=== PATIENT | male | born 1960 | race Caucasian/White ===

== ENCOUNTER → 2019-08-17 | Outpatient (CLI) | payer OTHER ==
[2019-06-20 10:10] VITALS: BP 127/81
[~2019-08-17] MED LIST: BUDE10.2 IH; GUAI600T47 PO; IBUP-1027 PO; OMEP20CA10 PO
== END | disposition home or self-care (01) ==
LOC: LAB 12:36
PROVIDERS: ATTEND Internal Medicine Critical Care Medicine
DX: I48.91 Unspecified atrial fibrillation (principal); G96.9 Disorder of central nervous system, unspecified; R05 Cough; B35.9 Dermatophytosis, unspecified
CPT/HCPCS: 87070; 87102; 87116; 87205

== ENCOUNTER → 2019-09-05 | Day surgery (SDC) | payer OTHER ==
[~2019-09-05] MED LIST changes: +ALBUTEROL SULFATE 2.5 MG/3 ML NEBU. NEB PRN; +CETI10TA16 PO; +EPINEPHrine 1 MG/ML VIAL INJ PRN; +IV RINGERS,LACTATED 1000ML 1,000 ML IV SCH; +LIDOCAINE 1% Multi-Dose 20 ML VIAL. INJ PRN; +LIDOCAINE 2% PF 5 ML VIAL. ONE; +LIDOCAINE 2% VISCOUS 100 ML BOTTLE. MM PRN; +LIDOCAINE 4% TOPICAL 50 ML SOLUTION. MM PRN; +PROPOFOL 40 ML IV ONE; +PSEU120T58 PO
[2019-09-05 12:55] LABS: BASO # 0.1 x10^3/uL (0.0-0.2); BASO % 1 % (0-3); EOS # 0.1 x10^3/uL (0.0-0.7); EOS % 1 % (0-3); HEMATOCRIT 43.1 % (39.0-53.0); LYMPH # 1.8 x10^3/uL (1.0-4.8); LYMPH % 25 % (24-48); MEAN CORPUSCULAR HEMOGLOBIN 34 pg (25-35); MEAN CORPUSCULAR HGB CONC 35 g/dL (31-37); MEAN CORPUSCULAR VOLUME 98 fL (79-100); MONO # 0.9 x10^3/uL (0.0-1.1); MONO % 13 % (0-9); NEUT # 4.2 x10^3/uL (1.8-7.7); NEUT % 60 % (31-73); PLATELET COUNT 352 x10^3/uL (140-400); RED BLOOD COUNT 4.39 x10^6/uL (4.30-5.70); RED CELL DISTRIBUTION WIDTH 13.3 % (11.5-14.5)
[2019-09-05 13:06] LABS: PROTHROMBIN TIME PATIENT 12.7 SEC (11.7-14.0)
--- NOTE | 2019-09-05 14:13 | OP ---
DATE OF SURGERY: 09/05/2019 PROCEDURE: Bronchoscopy, bronchoalveolar lavage of the right and left lower segments. INDICATION: The patient presented with persistent abnormal CT chest and some hemoptysis in the past, undergoing a diagnostic bronchoscopy. He has had a previously new left upper lobe thick wall cavitary mass and some pulmonary nodules. Risks, benefits, and alternatives reviewed with the patient and he consented. SEDATION: Please see anesthesia notes. PROCEDURE IN DETAIL: A timeout was performed prior to sedation. Vital signs and O2 saturations were maintained within normal limits throughout the procedure. The bronchoscope was passed through the right naris. The vocal cords were identified moving bilaterally without any dysfunction. The vocal cords were then anesthetized with a total of 5 mL of 4% lidocaine. The bronchoscope was passed through the vocal cords into the proximal trachea which was normal. The distal trachea was likewise normal. The right and left segments and subsegments were all visualized. There were no endobronchial lesions. The scope was wedged into the left lower lobe segment and a bronchoalveolar lavage was performed, and the return was slightly cloudy. The scope was then wedged into the right lower lobe segment and a bronchoalveolar lavage was performed, and the return was once again cloudy. There was no evidence of blood in the airway. IMPRESSION: 1. Normal vocal cords. 2. No endobronchial lesions. 3. No evidence of active bleeding. PLAN: We will await the BAL results. The patient is to follow up in the office as instructed to do so. HAILEE SANTANA MD DR: WHITLEY/nas JOB#: [id number] / [id number]
[2019-09-05 14:21] VITALS: BP 120/65
--- NOTE | 2019-09-07 18:06 | PATHOLOGY ---
Note [facility] Accession Number: [id number] TESTS RESULT FLAG UNITS REF RANGE LAB Clinician Provided Cytology Information No. of containers..01 Other (Miscellaneous) Source: LT LUNG BAL DIAGNOSIS: LT LUNG BAL NEGATIVE FOR MALIGNANT CELLS. BRONCHIAL EPITHELIAL CELLS, FEW PULMONARY MACROPHAGES, AND FEW INFLAMMATORY CELLS PRESENT. Signed out by: 02 José Wilde MD, Pathologist NPI- [id number] Performed by: Ceci Gan, Sand Drier ([facility]) Gross description: 01 5 ML, COLORLESS, CLOUDY /LCS 11/27/1840 0000 Local FLAG LEGEND: L-Low Normal,H-High Normal,LL-Alert Low,HH-Alert High <-Panic Low,>-Panic High,A-Abnormal,AA-Critical Abnormal Performed at: [address] [place] [address] Ozzy Mims MD, 02 [facility] [address] [place] [address] José Wilde MD, Specimen Comment: A courtesy copy of this report has been sent to Specimen Comment: [phone]. Specimen Comment: Report sent to Performed at: [address], [place], [place] [id number] MD Ozzy Mims MD Phone: [phone]
--- NOTE | 2019-09-07 18:06 | PATHOLOGY ---
Note [facility] Accession Number: [id number] TESTS RESULT FLAG UNITS REF RANGE LAB Clinician Provided Cytology Information No. of containers..01 Other (Miscellaneous) Source: RT LUNG BAL DIAGNOSIS: 02 RT LUNG BAL NEGATIVE FOR MALIGNANT CELLS. BRONCHIAL EPITHELIAL CELLS, FEW PULMONARY MACROPHAGES, AND FEW INFLAMMATORY CELLS PRESENT. Signed out by: 02 José Wilde MD, Pathologist NPI- [id number] Performed by: Ceci Gan Music Composition Teacher ([facility]) Gross description: 01 5 ML, COLORLESS, CLOUDY /LCS 11/27/1840 0000 Local FLAG LEGEND: L-Low Normal,H-High Normal,LL-Alert Low,HH-Alert High <-Panic Low,>-Panic High,A-Abnormal,AA-Critical Abnormal Performed at: [address] [address] Ozzy Mims MD, 02 [facility] [address] [place] [address] José Wilde MD, Specimen Comment: A courtesy copy of this report has been sent to Specimen Comment: [phone]. Specimen Comment: Report sent to Specimen Comment: A duplicate report has been generated due to demographic updates. Performed at: [address] [place] [address] [address], [place], [place] [id number] MD Ozzy Mims MD Phone: [phone]
== END ==
LOC: SURG 12:07
PROVIDERS: ATTEND Internal Medicine Pulmonary Disease
DX: R91.8 Other nonspecific abnormal finding of lung field (principal); J40 Bronchitis, not specified as acute or chronic; J43.9 Emphysema, unspecified; Z87.891 Personal history of nicotine dependence; Z87.01 Personal history of pneumonia (recurrent); Z79.01 Long term (current) use of anticoagulants
CPT/HCPCS: 31624; 36415; 85025; 85610; 87070; 87102; 87116; 87205; 94640; J0171; J2001; J2704; 31622; 88112

== ENCOUNTER → 2019-10-23 | Outpatient (CLI) | payer OTHER ==
[2019-09-05 14:21] VITALS: BP 120/65
[~2019-10-23] MED LIST changes: +ALBUTEROL SULFATE 2.5 MG/3 ML NEBU. NEB ONE; -ALBUTEROL SULFATE 2.5 MG/3 ML NEBU. NEB PRN; -EPINEPHrine 1 MG/ML VIAL INJ PRN; -IV RINGERS,LACTATED 1000ML 1,000 ML IV SCH; -LIDOCAINE 1% Multi-Dose 20 ML VIAL. INJ PRN; -LIDOCAINE 2% PF 5 ML VIAL. ONE; -LIDOCAINE 2% VISCOUS 100 ML BOTTLE. MM PRN; -LIDOCAINE 4% TOPICAL 50 ML SOLUTION. MM PRN; +OMEP-229 PO; -OMEP20CA10 PO; -PROPOFOL 40 ML IV ONE
== END | disposition home or self-care (01) ==
LOC: PF 09:23
DX: Z02.71 Encounter for disability determination (principal)
CPT/HCPCS: 94060; 94640; J7613

== ENCOUNTER → 2019-10-23 | Outpatient (CLI) | payer OTHER ==
[2019-09-05 14:21] VITALS: BP 120/65
[~2019-10-23] MED LIST changes: -ALBUTEROL SULFATE 2.5 MG/3 ML NEBU. NEB ONE; -OMEP-229 PO; +OMEP20CA10 PO
[2019-10-23 11:02] LABS: CALCIUM 9.5 mg/dL (8.5-10.1); CREATININE 0.9 mg/dL (0.7-1.3); DIRECT BILIRUBIN 0.2 mg/dL (0.0-0.2); POTASSIUM 4.3 mmol/L (3.5-5.1); TOTAL BILIRUBIN 0.6 mg/dL (0.2-1.0)
--- NOTE | 2019-10-23 11:05 | EKG ---
[facility] [address] [place] [address] Test Date: 2019-10-23 Test Time: 10:59:50 Pat Name: CHINO GODINEZ Department: Room: Gender: M Transition Program Manager: ALETHA : 1960 Requested By: HAILEE SANTANA Order Number: [id number] Reading MD: Ty Hyde MD Measurements Intervals Friend Rate: 85 P: 65 [place]: 132 QRS: 81 QRSD: 86 T: 77 QT: 338 QTc: 407 Interpretive Statements SINUS RHYTHM Electronically Signed On 10-23-2019 13:27:22 COAL HANDLING SUPERVISOR by Ty Hyde MD
[2019-10-23 11:09] LABS: BASO % 0 % (0-3); EOS # 0.1 x10^3/uL (0.0-0.7); EOS % 2 % (0-3); HEMATOCRIT 46.8 % (39.0-53.0); HEMOGLOBIN 16.1 g/dL (13.0-17.5); LYMPH # 2.1 x10^3/uL (1.0-4.8); LYMPH % 31 % (24-48); MEAN CORPUSCULAR HEMOGLOBIN 34 pg (25-35); MEAN CORPUSCULAR HGB CONC 34 g/dL (31-37); MEAN CORPUSCULAR VOLUME 98 fL (79-100); MONO # 0.9 x10^3/uL (0.0-1.1); MONO % 13 % (0-9); NEUT # 3.6 x10^3/uL (1.8-7.7); NEUT % 54 % (31-73); PLATELET COUNT 237 x10^3/uL (140-400); RED BLOOD COUNT 4.77 x10^6/uL (4.30-5.70); RED CELL DISTRIBUTION WIDTH 13.4 % (11.5-14.5); WHITE BLOOD COUNT 6.8 x10^3/uL (4.0-11.0)
== END | disposition home or self-care (01) ==
LOC: LAB 09:36
PROVIDERS: ATTEND Internal Medicine Pulmonary Disease
DX: A31.0 Pulmonary mycobacterial infection (principal)
CPT/HCPCS: 36415; 80053; 80076; 85025; 93005

== ENCOUNTER → 2020-01-14 | Outpatient (CLI) | payer OTHER ==
[2019-09-05 14:21] VITALS: BP 120/65
[~2020-01-14] MED LIST changes: -OMEP20CA10 PO; +OMEP20CA16 PO
[2020-01-14 11:38] LABS: BASO % 1 % (0-3); EOS # 0.1 x10^3/uL (0.0-0.7); EOS % 2 % (0-3); HEMATOCRIT 46.9 % (39.0-53.0); HEMOGLOBIN 16.2 g/dL (13.0-17.5); LYMPH # 2.1 x10^3/uL (1.0-4.8); LYMPH % 46 % (24-48); MEAN CORPUSCULAR HEMOGLOBIN 34 pg (25-35); MEAN CORPUSCULAR HGB CONC 35 g/dL (31-37); MEAN CORPUSCULAR VOLUME 98 fL (79-100); MONO # 0.6 x10^3/uL (0.0-1.1); MONO % 14 % (0-9); NEUT # 1.7 x10^3/uL (1.8-7.7); NEUT % 37 % (31-73); PLATELET COUNT 170 x10^3/uL (140-400); RED BLOOD COUNT 4.78 x10^6/uL (4.30-5.70); RED CELL DISTRIBUTION WIDTH 12.9 % (11.5-14.5); WHITE BLOOD COUNT 4.5 x10^3/uL (4.0-11.0)
[2020-01-14 11:58] LABS: ALBUMIN 3.8 g/dL (3.4-5.0); CALCIUM 9.1 mg/dL (8.5-10.1); CREATININE 0.9 mg/dL (0.7-1.3); POTASSIUM 4.5 mmol/L (3.5-5.1); TOTAL BILIRUBIN 0.3 mg/dL (0.2-1.0); TOTAL PROTEIN 7.7 g/dL (6.4-8.2)
== END | disposition home or self-care (01) ==
LOC: LAB 11:17
PROVIDERS: ATTEND Internal Medicine Pulmonary Disease
DX: A31.2 Disseminated mycobacterium avium-intracellulare complex (DMAC) (principal)
CPT/HCPCS: 36415; 80053; 85025

== ENCOUNTER → 2020-01-30 | Outpatient (CLI) | payer OTHER ==
[2019-09-05 14:21] VITALS: BP 120/65
[2020-01-30 13:35] LABS: BILIRUBIN,URINE NEGATIVE (NEG); CLARITY,URINE CLEAR; COLOR,URINE YELLOW; NITRITE,URINE NEGATIVE (NEG); PH,URINE 6.5; PROTEIN,URINE NEGATIVE (NEG-TRACE); UROBILINOGEN,URINE 0.2 mg/dL (0.2 mg/dL)
[2020-01-30 13:49] LABS: BACTERIA,URINE 0 /HPF (0-FEW); RBC,URINE 0 /HPF (0-2); SQUAMOUS EPITHELIAL CELL,UR OCC /LPF; WBC,URINE RARE /HPF (0-4)
== END ==
LOC: LAB 12:53
PROVIDERS: ATTEND Internal Medicine Pulmonary Disease
DX: Z12.5 Encounter for screening for malignant neoplasm of prostate (principal); R31.9 Hematuria, unspecified
CPT/HCPCS: 36415; 81001; G0103

== ENCOUNTER 2020-07-01 06:59 | Outpatient (CLI) | payer OTHER ==
[~2020-07-01] VITALS: Ht 167.6 cm; Wt 65.8 kg
[2020-07-01] VITALS (13 sets, daily range): BP systolic 110–130; BP diastolic 77–84
[2020-07-01] MEDS ORDERED: AZIT500T PO (07:43)
[2020-07-01] MEDS ORDERED: [UNRECOGNIZED DRUG - CODE] PO (07:43)
[2020-07-01] MEDS ORDERED: RIFA300C3 PO (07:43)
[2020-07-01 07:53] LABS: BASO % 1 % (0-3); EOS # 0.1 x10^3/uL (0.0-0.7); EOS % 3 % (0-3); HEMATOCRIT 43.2 % (39.0-53.0); HEMOGLOBIN 14.8 g/dL (13.0-17.5); LYMPH # 1.7 x10^3/uL (1.0-4.8); LYMPH % 38 % (24-48); MEAN CORPUSCULAR HEMOGLOBIN 34 pg (25-35); MEAN CORPUSCULAR HGB CONC 34 g/dL (31-37); MEAN CORPUSCULAR VOLUME 99 fL (79-100); MONO # 0.5 x10^3/uL (0.0-1.1); MONO % 12 % (0-9); NEUT % 46 % (31-73); PLATELET COUNT 206 x10^3/uL (140-400); RED BLOOD COUNT 4.36 x10^6/uL (4.30-5.70); RED CELL DISTRIBUTION WIDTH 12.9 % (11.5-14.5); WHITE BLOOD COUNT 4.4 x10^3/uL (4.0-11.0)
[2020-07-01 08:00] LABS: PROTHROMBIN TIME PATIENT 11.9 SEC (11.7-14.0)
[2020-07-01] MEDS ORDERED: LIDOCAINE WITH 8.4% SOD BICARB 3 ML DISP.SYRIN. ONE (08:28)
[2020-07-01] MEDS ORDERED: fentaNYL PF VIAL 100 MCG/2 ML VIAL ONE (08:40)
[2020-07-01] MEDS ORDERED: MIDAZOLAM HCL/PF 2 MG/2 ML VIAL. ONE (08:40)
[2020-07-01] MEDS ORDERED: LIDOCAINE WITH 8.4% SOD BICARB 3 ML DISP.SYRIN. IJ ONE (09:15)
[2020-07-01] MEDS ORDERED: MIDAZOLAM HCL/PF 2 MG/2 ML VIAL. IV ONE (09:15)
[2020-07-01] MEDS ORDERED: fentaNYL PF VIAL 100 MCG/2 ML VIAL IV ONE (09:15)
--- NOTE | 2020-07-01 09:15 | PDOC ---
MODERATE SEDATION ASSESSMENT RISKS/ALTERNATIVES Risks/Alternatives Risks and alternatives of this type of sedation and procedure discussed with: RISK/ALTERNATIVES: Patient H & P ON CHART H & P H & P on chart and reviewed for co-morbid conditions and appropriate labs. H&P ON CHART: Yes STATUS PREG STATUS ASSESSED: Yes MEDS/ALLERGIES REVIEWED Meds/Allergies Reviewed Medications and Allergies including time and route of recently administered narcotics and sedatives. MEDS/ALLERGIES REVIEWED: Yes ASA RATING ASA RATING: II AIRWAY ASSESSMENT Airway Assessment Airway patency, oral function limitations, presence of caps, crowns, dentures, partials, and ability to extend neck assessed. AIRWAY ASSESSMENT: Yes MALLAMPATI SCORE MALLAMPATI SCORE: II PRE-SEDATION ASSESSMENT PRE-SEDATION ASSESSMENT: Yes ISAK REYNOSO MD Jul 01, 2020 09:15
--- NOTE | 2020-07-01 09:17 | PDOC ---
BRIEF OPERATIVE NOTE Pre-Op Diagnosis Left lung mass Post-Op Diagnosis same Procedure Performed CT lung biopsy Surgeon Keila Anesthesia Type: Conscious Sedation Specimens Obtained 6 x 20g cores divided in formalin and non-bacteriostatic saline for microbiological analysis Findings CT left lung biopsy of left upper lobe solid mass like lesion new since prior CT Complications No immediate ISAK REYNOSO MD Jul 01, 2020 09:17
--- NOTE | 2020-07-01 11:27 | NUR ---
Discharge Note: CHINO GODINEZ Discharge instructions and discharge home medications reviewed with Patient and ; and a copy given. All questions have been answered and understanding verbalized. The following instructions and handouts were given: Post moderate sedation and biopsy/incision care. Discontinued lines and drains: Left AC IV dc'd and tip intact. Patient discharged to home with via personal vehicle.
--- NOTE | 2020-07-01 14:58 | RAD ---
Procedure: CT-guided biopsy of a left upper lobe lung mass Clinical Indication: Adult male with left upper lobe lung mass Sedation: Conscious sedation was administered with a total intraprocedural [id number] time of 16 minutes. The patient was monitored by a qualified independent observer throughout the time of sedation. Please refer to the medical record for exact doses of medications utilized to achieve moderate sedation. Antibiotics: None Sterility: The procedure was performed in its entirety using appropriate elements of sterile technique. Consent: The procedure was explained in its entirety to the patient or the patients designated sales solutions representative by a member of the treatment team, including a discussion of the risks, benefits and commonly accepted alternatives to the procedure, as well as the expected consequences of no therapy whatsoever. Discussion of the risks included, but was not limited to, those that are most frequent and those that are rare but possibly severe or life-threatening, as well as the possibility of unforeseen complications. Technique and Findings: Following informed consent, the patient was prepped and draped in usual sterile fashion. Preliminary CT scan of the area of interest was performed. 1% lidocaine was used to achieve local anesthesia. A small dermatotomy was made. Under periodic CT surveillance, a 19-gauge needle guide was advanced towards the targeted lesion and multiple 20-gauge core biopsy specimens were obtained and divided between formalin and saline for microbiologic analysis. A blood patch was applied as the needle guide was removed and hemostasis was achieved with manual compression. Complications: No immediate Impression: 1. CT-guided left lung biopsy as described. PQRS Compliance Statement: One or more of the following individualized dose reduction techniques were utilized for this examination: 1. Automated exposure control 2. Adjustment of the mA and/or kV according to patient size 3. Use of iterative reconstruction technique
--- NOTE | 2020-07-01 18:56 | RAD ---
Portable chest radiograph to include inspiration and expiration views 07/01/2020 CLINICAL HISTORY: Post left lung biopsy. Portable AP inspiration and expiration digital radiographs of the chest were obtained. [address] images of the chest obtained during the patient's CT guided left lung biopsy from earlier today. The cardiac silhouette is normal in size. The thoracic aorta is mildly tortuous. A cavitary mass is seen within the left upper lobe which is unchanged. Emphysematous changes are seen bilaterally. Bilateral perihilar infiltrates are again noted. No pneumothorax or pleural effusion is seen. Degenerative changes are seen involving the thoracic spine and both shoulders. IMPRESSION: No pneumothorax is seen. Electronically signed by: Juan Florentino MD (07/01/2020 6:53 PM) [id number]
--- NOTE | 2020-07-03 17:07 | PATHOLOGY ---
[facility] Accession Number: [id number] . 01 Material submitted: . lung - LEFT LUNG CORE BX. Modifiers: left . 01 Clinical history: . Left lung mass . 02 Diagnosis: Lung tissue, left lung mass CT guided needle biopsies: - Necrotic tissue with focal fibrosis and chronic inflammation. See comment. (JPM:bharat; 07/02/2020) QMS 07/02/2020 1036 Local . 02 Comment: Sections of the left lung mass CT guided needle biopsy reveal segments of necrotic tissue which is focally bordered by reactive fibrous tissue containing chronic inflammatory cells and histiocytes, some of which contain anthracotic pigment. There is no normal lung tissue present. There is no viable neoplasm present. Properly controlled stains for acid-fast bacilli and fungi are obtained and yield the following results: . AFB stain: Negative for acid-fast bacilli. GMS for yeast/fungus: Negative for yeast/fungi. . The differential diagnosis includes necrotic inflamed lung tissue and necrotic tumor. I cannot exclude the possibility of necrotic tumor. Repeat biopsies from a different area of the mass could be helpful to establish a diagnosis. Correlate clinically. (JPM:bharat; 07/02/2020) . Special stains performed: AFB stain and GMS for yeast/fungus . 02 Electronically signed: . José Wilde MD, Pathologist NPI- [id number] . 01 Gross description: . The specimen is received in formalin, labeled "Missael Krause, left lung BX" and consists of multiple delicate needle cores of white-shin tissue measuring 1.2 x 0.1 x 0.1 cm in aggregate which are entirely submitted in A1. (SDY; 07/01/2020) SYU/SYU 07/01/2020 1611 Local . 02 Pathologist provided ICD-10: J85.0, J84.10, J98.4 . 02 CPT . 082857, 231216, 124451 Specimen Comment: A courtesy copy of this report has been sent to [phone] Specimen Comment: [phone] Specimen Comment: Report sent to / DR SANTANA Performed at: [address] [facility], [place] [id number] MD Ozzy Mims MD Phone: [phone] Performed at: 02 [facility] [address] [place], [place] [id number] MD José Wilde MD Phone: [phone]
== END 2020-07-01 11:30 | disposition home or self-care (01) ==
LOC: INTRAD 06:59
PROVIDERS: ATTEND Internal Medicine Pulmonary Disease
DX: R91.8 Other nonspecific abnormal finding of lung field (principal); J43.8 Other emphysema; Z79.899 Other long term (current) drug therapy; Z79.01 Long term (current) use of anticoagulants
CPT/HCPCS: 32405; 36415; 71046; 85025; 85610; 87071; 87075; 87102; 99152; J2250; J3010; J3490; 87176; 88305; 88312

== ENCOUNTER → 2020-07-02 | Outpatient (CLI) | payer OTHER ==
[2020-07-01 11:15] VITALS: BP 119/83
[~2020-07-02] MED LIST changes: +AZIT500T PO; +RIFA300C3 PO; +[UNRECOGNIZED DRUG - CODE] PO
== END | disposition home or self-care (01) ==
LOC: LAB 12:30
PROVIDERS: ATTEND Internal Medicine Pulmonary Disease
DX: R09.3 Abnormal sputum (principal)
CPT/HCPCS: 87070; 87116; 87205

== ENCOUNTER → 2020-11-04 | Outpatient (CLI) | payer OTHER ==
[2020-07-01 11:15] VITALS: BP 119/83
== END ==
LOC: LAB 09:35
PROVIDERS: ATTEND Internal Medicine Critical Care Medicine
DX: Z01.812 Encounter for preprocedural laboratory examination (principal); Z20.828 Contact with and (suspected) exposure to other viral communicable diseases
CPT/HCPCS: U0003

== ENCOUNTER → 2020-11-07 | Day surgery (SDC) | payer OTHER ==
[~2020-11-07] MED LIST changes: +0.9 % SODIUM CHLORIDE 10 ML DISP.SYRIN. IV PRN; +ALBUTEROL SULFATE 2.5 MG/3 ML NEBU. NEB PRN; +EPINEPHrine 1 MG/ML VIAL ONE; +IV RINGERS,LACTATED 1000ML 1,000 ML IV SCH; +LIDOCAINE 1% Multi-Dose 20 ML VIAL. ONE; +LIDOCAINE 2% VISCOUS 100 ML BOTTLE. MM PRN; +LIDOCAINE 2% VISCOUS 100 ML BOTTLE. ONE; +LIDOCAINE 4% TOPICAL 50 ML SOLUTION. ONE; +PROPOFOL 10 MG/ML (20ML) VIAL. IV ONE
[2020-11-07 11:04] LABS: BASO % 1 % (0-3); EOS # 0.2 x10^3/uL (0.0-0.7); EOS % 4 % (0-3); HEMATOCRIT 44.2 % (39.0-53.0); HEMOGLOBIN 15.3 g/dL (13.0-17.5); LYMPH # 1.9 x10^3/uL (1.0-4.8); LYMPH % 29 % (24-48); MEAN CORPUSCULAR HEMOGLOBIN 34 pg (25-35); MEAN CORPUSCULAR HGB CONC 35 g/dL (31-37); MEAN CORPUSCULAR VOLUME 97 fL (79-100); MONO # 0.7 x10^3/uL (0.0-1.1); MONO % 10 % (0-9); NEUT # 3.7 x10^3/uL (1.8-7.7); NEUT % 57 % (31-73); PLATELET COUNT 254 x10^3/uL (140-400); RED BLOOD COUNT 4.56 x10^6/uL (4.30-5.70); WHITE BLOOD COUNT 6.6 x10^3/uL (4.0-11.0)
[2020-11-07 11:38] LABS: PROTHROMBIN TIME PATIENT 12.3 SEC (11.7-14.0)
[2020-11-07 12:40] VITALS: BP 99/67
--- NOTE | 2020-11-07 13:33 | OP ---
DATE OF SURGERY: PROCEDURE: Bronchoscopy. INDICATIONS: Cavitary infection. DESCRIPTION OF PROCEDURE: Informed consent was obtained from the patient. All risks and benefits were explained. He agreed to proceed with the procedure. Sedation with Propofol was used by Anesthesia. Bronch was introduced through the right nostril. The upper airway was passed. Minimal white secretions seen. Vocal cords moves equally with respiration. The patient did cough significantly during the bronchoscopy. The trachea was entered. No tracheal lesions seen. Katie was sharp. Left lung was first examined. All the subsegments of left upper lobe, lingula and left lower lobe were examined. There was some mucosal inflammation noted in the left upper lobe. Bronchoalveolar lavage performed from the left upper lobe. No endobronchial lesions seen. Bronch was introduced into the right lung. All subsegments of right upper, right middle and right lower lobe were examined. No endobronchial lesions seen. Bronchoalveolar lavage performed from right upper lobe. No purulent secretions seen. The patient did cough during the procedure. IMPRESSION: 1. Mild mucosal inflammation seen in the left upper lobe. 2. No endobronchial lesions seen in either the right or the left lung. 3. Bronchoalveolar lavage performed from the left upper lobe and right upper lobe. 4. The patient to follow by Dr. Dowd to discuss the results of the cultures. CASE MURPHY MD DR: PEDRITO/nts JOB#: [id number] / [id number]
--- NOTE | 2020-11-11 11:07 | PATHOLOGY ---
Note [facility] Accession Number: [id number] TESTS RESULT FLAG UNITS REF RANGE LAB Clinician Provided Cytology Information No. of containers..01 Other (Miscellaneous) Source: POOLED BAL DIAGNOSIS: 02 POOLED BAL NEGATIVE FOR MALIGNANT CELLS. FOCALLY REACTIVE BRONCHIAL EPITHELIAL CELLS IDENTIFIED WITHIN A BACKGROUND OF NEUTROPHILS THIS INTERPRETATION INCLUDES EVALUATION OF A CELL BLOCK. Signed out by: 02 José Wilde MD, Pathologist NPI- [id number] Performed by: Heladio Martinez, Plastics Plater ([facility]) Gross description: 01 5ML, COLORLESS, 1TP 1CB /LCS 11/07/20201910 Local FLAG LEGEND: L-Low Normal,H-High Normal,LL-Alert Low,HH-Alert High <-Panic Low,>-Panic High,A-Abnormal,AA-Critical Abnormal Performed at: [address] [place] [address] Prasanth Trejo MD, 02 [facility] [address] [place] [address] José Wilde MD, Specimen Comment: A courtesy copy of this report has been sent to [phone] Specimen Comment: Report sent to Performed at: [address] [place] [address] [address], [place], [place] [id number] MD Prasanth Trejo MD Phone: [phone]
== END | disposition home or self-care (01) ==
LOC: SURG 09:48
PROVIDERS: ATTEND Internal Medicine Critical Care Medicine
DX: J98.4 Other disorders of lung (principal); J43.9 Emphysema, unspecified; K21.9 Gastro-esophageal reflux disease without esophagitis; M19.90 Unspecified osteoarthritis, unspecified site; F41.9 Anxiety disorder, unspecified; F17.210 Nicotine dependence, cigarettes, uncomplicated; Z85.828 Personal history of other malignant neoplasm of skin; Z79.899 Other long term (current) drug therapy; Z98.890 Other specified postprocedural states; Z72.89 Other problems related to lifestyle
CPT/HCPCS: 31624; 36415; 85025; 85610; 85730; 87070; 87102; 87116; 87205; 94640; J2704; J3490; 31622; J0171

== ENCOUNTER 2020-11-25 14:27 | Inpatient (IN) | payer OTHER ==
[~2020-11-25] VITALS: Ht 167.6 cm; Wt 68.0 kg
[~2020-11-25 14:27] MED LIST changes: -0.9 % SODIUM CHLORIDE 10 ML DISP.SYRIN. IV PRN; -ALBUTEROL SULFATE 2.5 MG/3 ML NEBU. NEB PRN; -EPINEPHrine 1 MG/ML VIAL ONE; -IV RINGERS,LACTATED 1000ML 1,000 ML IV SCH; -LIDOCAINE 1% Multi-Dose 20 ML VIAL. ONE; -LIDOCAINE 2% VISCOUS 100 ML BOTTLE. MM PRN; -LIDOCAINE 2% VISCOUS 100 ML BOTTLE. ONE; -LIDOCAINE 4% TOPICAL 50 ML SOLUTION. ONE; +MORPHINE SULFATE 4 MG/ML VIAL. IV PRN; -PROPOFOL 10 MG/ML (20ML) VIAL. IV ONE
[2020-11-25] MEDS ORDERED: VANCOMYCIN PER PHARMACY MC PRN (14:45)
[2020-11-25] MEDS ORDERED: IV NORMAL SALINE 1000ML BAG 1,000 ML IV ONE (14:45)
[2020-11-25] MEDS ORDERED: PIPERACILLIN/TAZOBACTAM 4.5 GM in IV NORMAL SALINE 100ML 100 ML IV ONE (14:45)
[2020-11-25] MEDS ORDERED: IV NORMAL SALINE 1000ML BAG 1,000 ML IV SCH (14:45)
[2020-11-25] MEDS ORDERED: DEXAMETHASONE SOD PHOS 20 MG/5 ML VIAL. IV ONE (15:00)
[2020-11-25] MEDS ORDERED: IPRATRPIUM/ALBUTEROL 0.5/2.5MG 3 ML NEBU. NEB ONE (15:00)
--- NOTE | 2020-11-25 15:13 | RAD ---
XR CHEST 1V History: Reason: soa / Spl. Instructions: / History: Comparison: July 01, 2020 Findings: Small left lateral loculated pneumothorax. Increased left upper lung masslike consolidation. Increase d bilateral patchy opacities. Emphysematous changes. Increased right upper lateral pleural thickening . Small left pleural effusion. Normal heart size. Prior granulous disease within the chest. Impression: 1. Small left lateral loculated pneumothorax. 2. Increased left upper lung masslike consolidation with additional consolidations bilaterally, may represent pneumonia although malignancy is possible. Recommend CT to further evaluate. Also recommend comparison with prior biopsy results. 3. Small left pleural effusion. FOR INTERNAL CODING PURPOSES Critical result: Findings discussed with Dr. Soto at 11/25/2020 3:06 PM. RESULT CODE: (C) Electronically signed by: Kevin Conrad DO (11/25/2020 3:11 PM) [id number]
[2020-11-25] MEDS ORDERED: LIDOCAINE 1% Multi-Dose 20 ML VIAL. INJ ONE (15:15)
[2020-11-25] MEDS ORDERED: LIDOCAINE 1% Multi-Dose 20 ML VIAL. ONE (15:15)
[2020-11-25] MEDS ORDERED: fentaNYL PF VIAL 100 MCG/2 ML VIAL IVP ONE (15:15)
[2020-11-25] MEDS ORDERED: KETOROLAC 15 MG/ML VIAL. IVP ONE (15:15)
[2020-11-25] MEDS ORDERED: fentaNYL PF VIAL 100 MCG/2 ML VIAL ONE (15:15)
[2020-11-25 15:27] LABS: BASO % 0 % (0-3); EOS % 0 % (0-3); HEMATOCRIT 39.7 % (39.0-53.0); HEMOGLOBIN 13.9 g/dL (13.0-17.5); LYMPH # 0.5 x10^3/uL (1.0-4.8); LYMPH % 7 % (24-48); MEAN CORPUSCULAR HEMOGLOBIN 34 pg (25-35); MEAN CORPUSCULAR HGB CONC 35 g/dL (31-37); MEAN CORPUSCULAR VOLUME 97 fL (79-100); MONO # 0.8 x10^3/uL (0.0-1.1); MONO % 10 % (0-9); NEUT # 6.9 x10^3/uL (1.8-7.7); NEUT % 84 % (31-73); PLATELET COUNT 345 x10^3/uL (140-400); RED BLOOD COUNT 4.11 x10^6/uL (4.30-5.70); RED CELL DISTRIBUTION WIDTH 12.8 % (11.5-14.5); WHITE BLOOD COUNT 8.2 x10^3/uL (4.0-11.0)
[2020-11-25] MEDS ORDERED: AZITHRMYCN 500MG IVPB FOR OMNI 250 ML IV ONE (15:30)
[2020-11-25] MEDS ORDERED: VANCOMYCIN 1.75 GM in IV NORMAL SALINE 500ML BAG 500 ML IV ONE ×2 (15:30→19:00)
[2020-11-25 15:44] LABS: CALCIUM 8.8 mg/dL (8.5-10.1); CREATININE 0.6 mg/dL (0.7-1.3); GFR 138.4; POTASSIUM 4.1 mmol/L (3.5-5.1)
[2020-11-25 15:48] LABS: ALBUMIN 2.4 g/dL (3.4-5.0); ALBUMIN/GLOBULIN RATIO 0.6 (1.0-1.7); TOTAL PROTEIN 6.2 g/dL (6.4-8.2)
--- NOTE | 2020-11-25 16:10 | RAD ---
Single AP view of the chest. Comparison: 2:35 PM the same day. Indication: Chest tube Findings: Patient status post left-sided chest tube placement. There is been interval near-complete evaluation of the left-sided pneumothorax. The heart is not enlarged. Persistent apical pneumothorax is identifi ed. Apical interstitial thickening is identified. Persistent mass in the left upper lobe. Impression: 1. Chest tube placement with near complete evaluation of pneumothorax. There still some apical pneumo thorax identified. There is persistent biapical thickening of the lungs with a stable left upper lobe mass. Electronically signed by: Eder Newman MD (11/25/2020 4:07 PM) [id number]
--- NOTE | 2020-11-25 16:29 | PHYS DOC ---
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 Campos, presents to the ED with complaints of worsening shortness of breath for the past week w/associated productive cough. Patient states he was constipated and while attempting to have a bowel movement had sudden onset, worsening shortness of breath. Cannot recall him medications-believes he's taking a steroid but is a poor historian, "ask my ." EMS reports he was 93% on room air. Requires 5 L nasal cannula to maintain 97%. Had a negative rapid Covid test 1 week ago. EMR was reviewed and patient had bronchoscopy on the , Covid test negative on the eighth. Patient reports he tried getting ahold of Dr. Campos-pt has no rou autumn pmd. Has been started on 12-month regimen of rifampin, azithromycin and INH. Is not on any home oxygen. Review of Systems: Review of Systems: Constitutional: Denies syncope Eyes: Denies change in visual acuity. [] HENT: Denies nasal congestion or sore throat. [] Respiratory: Denies hemoptysis or nonproductive cough Cardiovascular: Denies syncope or edema. [] GI: Denies abdominal pain, nausea, vomiting, bloody stools or diarrhea. [] : Denies dysuria or hematuria Musculoskeletal: Denies back pain or joint pain. [] Integument: Denies rash or crepitus Neurologic: Denies headache, focal weakness or sensory changes. [] Endocrine: Denies polyuria or polydipsia. [] Lymphatic: Denies swollen glands. [] Psychiatric: Denies depression or anxiety. [] Heart Score: Risk Factors: Risk Factors: DM, Current or recent (<one month) smoker, HTN, HLP, family history of CAD, obesity. Risk Scores: Score 0 - 3: 2.5% MACE over next 6 weeks - Discharge Home Score 4 - 6: 20.3% MACE over next 6 weeks - Admit for Clinical Observation Score 7 - 10: 72.7% MACE over next 6 weeks - Early Invasive Strategies Current Medications: Current Medications Medications (Trade) Dose Ordered Sig/Brianda Start Time Stop Time Status Last Admin Dose Admin Albuterol/ Ipratropium (Duoneb) 3 ml 1X ONCE 11/25/20 15:00 11/25/20 15:11 DC Azithromycin 250 ml @ 250 mls/hr 1X ONCE 11/25/20 15:30 11/25/20 16:29 11/25/20 15:48 250 MLS/HR Dexamethasone Sodium Phosphate (Decadron) 10 mg 1X ONCE 11/25/20 15:00 11/25/20 15:11 DC 11/25/20 15:22 10 MG Fentanyl Citrate (Fentanyl 2ml Vial) 100 mcg STK-MED ONCE 11/25/20 15:15 11/25/20 15:16 DC Ketorolac Tromethamine (Toradol 15mg Vial) 15 mg 1X ONCE 11/25/20 15:15 11/25/20 15:16 DC 11/25/20 15:24 15 MG Lidocaine HCl (Lidocaine 1% 20ml Vial) 20 ml STK-MED ONCE 11/25/20 15:15 11/25/20 15:16 DC Metronidazole 100 ml @ 100 mls/hr 1X ONCE 11/25/20 16:00 11/25/20 16:59 Piperacillin Sod/ Tazobactam Sod 4.5 gm/Sodium Chloride 100 ml @ 200 mls/hr 1X ONCE 11/25/20 14:45 11/25/20 15:16 DC Sodium Chloride 1,000 ml @ 1,000 mls/hr 1X ONCE 11/25/20 14:45 11/25/20 15:44 DC 11/25/20 15:49 1,000 MLS/HR Vancomycin HCl (Vanco Per Pharmacy) 1 each PRN DAILY PRN 11/25/20 14:45 UNV Vancomycin HCl 1.75 gm/Sodium Chloride 500 ml @ 250 mls/hr 1X ONCE 11/25/20 15:30 11/25/20 17:29 Allergies: Allergies: Allergies Coded Allergies Type Severity Reaction Last Updated Verified I S O L A T I O N *CONTACT* Allergy Unknown 09/05/19 Yes No Known Medication Allergies Allergy Unknown 09/05/19 Yes Physical Exam: PE: Constitutional: febrile, malnourished/pooy health-appearing, HENT: Normocephalic, atraumatic, Eyes: EOMI, conjunctiva normal, no discharge. Neck: Normal range of motion, supple, Cardiovascular: S1/2 present, regular rhythm, tachycardic Lungs & Thorax: decreased sounds on left, no wheezing, speaking in 1-2 word sentences, With increased work of breathing, thick yellow/black odorous sputum Abdomen: soft, no tenderness, Skin: Warm, dry, no erythema, no rash. [] Back: No tenderness, no CVA tenderness. [] Extremities: No tenderness, no cyanosis, no edema Neurologic: Alert and oriented X 3, normal motor function, normal sensory function, no focal deficits noted. [] Psychologic: Affect normal, judgement normal, mood normal. [] Current Patient Data: Labs: Laboratory Tests Test 11/25/20 15:06 White Blood Count 8.2 x10^3/uL (4.0-11.0) Red Blood Count 4.11 x10^6/uL (4.30-5.70) L Hemoglobin 13.9 g/dL (13.0-17.5) Hematocrit 39.7 % (39.0-53.0) Mean Corpuscular Volume 97 fL (79-100) Mean Corpuscular Hemoglobin 34 pg (25-35) Mean Corpuscular Hemoglobin Concent 35 g/dL (31-37) Red Cell Distribution Width 12.8 % (11.5-14.5) Platelet Count 345 x10^3/uL (140-400) Neutrophils (%) (Auto) 84 % (31-73) H Lymphocytes (%) (Auto) 7 % (24-48) L Monocytes (%) (Auto) 10 % (0-9) H Eosinophils (%) (Auto) 0 % (0-3) Basophils (%) (Auto) 0 % (0-3) Neutrophils # (Auto) 6.9 x10^3/uL (1.8-7.7) Lymphocytes # (Auto) 0.5 x10^3/uL (1.0-4.8) L Monocytes # (Auto) 0.8 x10^3/uL (0.0-1.1) Eosinophils # (Auto) 0.0 x10^3/uL (0.0-0.7) Basophils # (Auto) 0.0 x10^3/uL (0.0-0.2) D-Dimer (Jennifer) 1.67 ug/mlFEU (0.00-0.50) H Sodium Level 136 mmol/L (136-145) Potassium Level 4.1 mmol/L (3.5-5.1) Chloride Level 99 mmol/L (98-107) Carbon Dioxide Level 25 mmol/L (21-32) Anion Gap 12 (6-14) Blood Urea Nitrogen 14 mg/dL (8-26) Creatinine 0.6 mg/dL (0.7-1.3) L Estimated GFR (Cockcroft-Gault) 138.4 BUN/Creatinine Ratio 23 (6-20) H Glucose Level 123 mg/dL (70-99) H Lactic Acid Level 1.3 mmol/L (0.4-2.0) Calcium Level 8.8 mg/dL (8.5-10.1) Total Bilirubin 1.0 mg/dL (0.2-1.0) Aspartate Amino Transferase (AST) 31 U/L (15-37) Alanine Aminotransferase (ALT) 43 U/L (16-63) Alkaline Phosphatase 49 U/L (46-116) Creatine Kinase 31 U/L (39-308) L Troponin I Quantitative < 0.017 ng/mL (0.000-0.055) YI-Iij-Y-Type Natriuretic Peptide 266 pg/mL (0-124) H Total Protein 6.2 g/dL (6.4-8.2) L Albumin 2.4 g/dL (3.4-5.0) L Albumin/Globulin Ratio 0.6 (1.0-1.7) L Laboratory Tests 11/25/20 15:06 Laboratory Tests 11/25/20 15:06 Vital Signs: Vital Signs Date Time Temp Pulse Resp B/P (MAP) Pulse Ox O2 Delivery O2 Flow Rate FiO2 11/25/20 15:24 20 97 Nasal Cannula 2.5 11/25/20 14:27 101.8 140/75 (96) 101.8 EKG: EKG: Sinus tachycardia 143 bpm, no axis deviation, normal intervals, no T wave inversions, no ST elevations or ST depressions Radiology/Procedures: Radiology/Procedures: Indication: Left-sided spontaneous pneumothorax Consent: The patient provided consent for this procedure. Procedure: The patient was placed in an appropriate position. Local anesthesia over the insertion site was 34th intercostal rib on left. An incision was made. 8Fr cook catheter advanced over rib, stylet removed. Air aspirated as catheter was slowly advanced into the pleural space -catheter connected to Pleur-evac. Initial output from the tube was 0cc. The tube was sutured in place and the site was covered with an occlusive dressing. All connections were banded. Breath sounds after the procedure were bilateral. A chest x-ray was obtained to jose luate placement. Patient's respiratory distress and tachycardia improved after seizure. The patient tolerated the procedure . Complications: None. IMAGING REPORT Signed PATIENT: CIHNO GODINEZ ACCOUNT: [id number] : 1960 LOCATION: [address] [place] [address] AGE: 60 SEX: M EXAM STATUS: ADM IN ORD. PHYSICIAN: TIRSO SANCHEZ DO REASON: sob w/known myco avium complex, elevatd d-dimer, r/o pe, malignancy? PROCEDURE: CT ANGIOGRAPHY CHEST Exam: CT of chest with contrast INDICATION: Shortness of breath, known MAC infection TECHNIQUE: Sequential axial images through the chest obtained following the administration 100 mL of Isovue-370 IV contrast. Sagittal and coronal reformatted images were reconstructed from the axial data and reviewed. 3-D refo rmatted images were reconstructed from the axial data and reviewed. Comparisons: Chest x-ray same day, CT chest 06/18/2020 FINDINGS: Utilized portions of the thyroid are unremarkable. No enlarged mediastinal lymph nodes are identified. Heart size is normal. Mild coronary artery calcifications. Thoracic aorta has a normal course and caliber. Pulmonary artery is not enlarged. No pulmonary embolus identified within the main, lobar or segmental pulmonary arteries. Airways are patent. There is a left-sided anterior pleural catheter with a trace left pneumothorax. Large cavity noted within the left upper lobe measuring approximately 8.8 x 4.2 cm with air-fluid level. Dense consolidative changes noted in the left upper lobe. There is a second smaller cavitary cavity in the left lower lobe measuring approximately 1.7 cm with surrounding dense consolidation. There is patchy areas of tree-in-bud nodularity and masslike consolidation in the right upper lobe with scattered areas of internal cheri cifications. No pleural effusion or thickening. Visualized upper abdomen is unremarkable. No suspicious osseous lesions or acute fractures. IMPRESSION: 1. No pulmonary embolus identified within the main, lobar or segmental pulmonary arteries. 2. When compared to the prior exam in May there has been progressive consolidation in the right upper lobe, left upper lobe and left lower lobe. This may represent worsening infectious/inflammatory process. Underlying malignancy is difficult to exclude. 3. The cavitary lesion seen in the left lung have increased in size with a air- fluid level noted within the left upper lobe cavity. Exposure: One or more of the following in the visualized dose reduction techniques were utilized for this examination: 1. Automated exposure control 2. Adjustment of the MA and/or KV according to patient size 3. Use of iterative of reconstructive technique Electronically signed by: Prabha Shen MD (11/25/2020 5:05 PM) [facility] DICTATED and SIGNED BY: PRABHA SHEN MD DATE: 11/25/20 [id number] IMAGING REPORT Signed PATIENT: CHINO GODINEZ ACCOUNT: [id number] : 1960 LOCATION: ER AGE: 60 SEX: M EXAM STATUS: REG ER ORD. PHYSICIAN: TIRSO SANCHEZ DO REASON: soa, s/o chest tube placement PROCEDURE: CHEST AP ONLY Single AP view of the chest. Comparison: 2:35 PM the same day. Indication: Chest tube Findings: Patient status post left-sided chest tube placement. There is been interval near-complete evaluation of the left-sided pneumothorax. The heart is not enlarged. Persistent apical pneumothorax is identified. Apical interstitial thickening is identified. Persistent mass in the left upper lobe. Impression: 1. Chest tube placement with near complete evaluation of pneumothorax. There still some apical pneumothorax identified. There is persistent biapical thick ening of the lungs with a stable left upper lobe mass. Electronically signed by: Eder Newman MD (11/25/2020 4:07 PM) [id number] DICTATED and SIGNED BY: EDER NEWMAN MD DATE: 11/25/20 [id number] 0 Course & Med Decision Making: Course & Med Decision Making Pertinent Labs and Imaging studies reviewed. (See chart for details) Concern for spontaneous ptx s/p chest tube placement. Pulmonology, Dr. Campos, present in ED and provided recommendations for patient's care and medical plan- is concerned for pna/mass and recommends ct chest (CTA w/no PE - WILI/LLL/RUL infection vs mass). Respiratory cultures pending. Flagyl added for anaerobic coverage. Covid pending. Sepsis 2/2 pna, no end organ damage. Respiratory dis tress and tachycardia improved with chest tube placement. Will admit for further medical management. Patient stable at time of admission and agrees with this plan. I have spoken with the patient and/or caregivers. I have explained the patient's condition, diagnosis and treatment plan based on the information available to me at this time. I have answered the patient's and/or caregivers questions and answered any concerns. The patient and/or caregivers have as good an understanding of the patient's diagnosis, condition and treatment plan as can be expected at this point. The patient has been stabilized within the capability of the emergency department. The patient will be transported for further care and management or will be moved to an observation or inpatient service. I have communicated with the staff or medical practitioner taking over this patient's care. Fatuma Disclaimer: Fatuma Disclaimer: This electronic medical record was generated, in whole or in part, using a voice recognition dictation system. Departure Departure Impression: Primary Impression: Sepsis Additional Impressions: Spontaneous pneumothorax Multifocal pneumonia Person under investigation for COVID-19 Disposition: ADMITTED INPT THIS HOSP Condition: STABLE Referrals: NO PCP (PCP) TIRSO SANCHEZ DO Nov 25, 2020 16:29
[2020-11-25] MEDS ORDERED: IOHEXOL 350 MG/ML 100 ML VIAL. IV ONE (16:30)
[2020-11-25] MEDS ORDERED: CONTRAST GIVEN. MC PRN (16:45)
[2020-11-25 16:48] LABS: INFLUENZA A PATIENT NEGATIVE (NEGATIVE); INFLUENZA B PATIENT NEGATIVE (NEGATIVE)
--- NOTE | 2020-11-25 16:55 | PDOC1 ---
History and Physical Date of Service: DOS: DATE: 11/25/20 TIME: 16:41 Chief Complaint: Chief Complain: SOB History of Present Illness: HPI: Patient is a 60-year-old male with past medical history of COPD, MAC infection in the past, recent bronchoscopy with Dr. Dowd on 11/11/2020 who presents with shortness of breath for the past week after getting the bronchoscopy. Patient follows with Dr. Dowd for the past 4 years patient has been on antibiotics for a year for MAC. Patient states also he does have productive cough. Denies fevers, chest pain, abdominal pain, diarrhea. ED course: Patient was found to have a pneumothorax loculated and the chest tube was placed in the ED 8 [place]i catheter. Minimal amount of fluid and air was produced. Patient has copious purulent sputum being produced. Past Medical/Surgical History: PMH/PSH: Past Medical History: COPD, MAC disease; left lung mass Past Surgical History: 11/11/20 bronchoscopy; biopsy of lung Allergies: Allergies: Coded Allergies: I S O L A T I O N *CONTACT* (Verified Allergy, Unknown, 09/05/19) Meropenum resistant-strep pneumoniae No Known Medication Allergies (Verified Allergy, Unknown, 09/05/19) Family History: Family History: Reviewed with no relevant findings Social History: Social History: Smoking Status: Current Every Day Smoker Additional Information: quit 2 weeks ago Alcohol Use: Sober Current Medications: Current Medications Current Medications Sodium Chloride 1,000 ml @ 1,000 mls/hr Q1H IV Last administered on 11/25/20at 15:27; Start 11/25/20 at 14:45; Stop 11/25/20 at 15:44; Status DC Sodium Chloride 1,000 ml @ 1,000 mls/hr 1X ONCE IV Last administered on 11/25/20at 15:49; Start 11/25/20 at 14:45; Stop 11/25/20 at 15:44; Status DC Vancomycin HCl (Vanco Per Pharmacy) 1 each PRN DAILY PRN MC SEE COMMENTS; Start 11/25/20 at 14:45; Status UNV Piperacillin Sod/ Tazobactam Sod 4.5 gm/Sodium Chloride 100 ml @ 200 mls/hr 1X ONCE IV ; Start 11/25/20 at 14:45; Stop 11/25/20 at 15:16; Status DC Dexamethasone Sodium Phosphate (Decadron) 10 mg 1X ONCE IV Last administered on 11/25/20at 15:22; Start 11/25/20 at 15:00; Stop 11/25/20 at 15:11; Status DC Albuterol/ Ipratropium (Duoneb) 3 ml 1X ONCE NEB ; Start 11/25/20 at 15:00; Stop 11/25/20 at 15:11; Status DC Fentanyl Citrate (Fentanyl 2ml Vial) 100 mcg 1X ONCE IVP Last administered on 11/25/20at 15:24; Start 11/25/20 at 15:15; Stop 11/25/20 at 15:41; Status DC Lidocaine HCl (Lidocaine 1% 20ml Vial) 20 ml 1X ONCE INJ Last administered on 11/25/20at 15:23; Start 11/25/20 at 15:15; Stop 11/25/20 at 15:41; Status DC Ketorolac Tromethamine (Toradol 15mg Vial) 15 mg 1X ONCE IVP Last administered on 11/25/20at 15:24; Start 11/25/20 at 15:15; Stop 11/25/20 at 15:16; Status DC Vancomycin HCl 1.75 gm/Sodium Chloride 500 ml @ 250 mls/hr 1X ONCE IV ; Start 11/25/20 at 15:30; Stop 11/25/20 at 17:29 Lidocaine HCl (Lidocaine 1% 20ml Vial) 20 ml STK-MED ONCE .ROUTE ; Start 11/25/20 at 15:15; Stop 11/25/20 at 15:16; Status DC Fentanyl Citrate (Fentanyl 2ml Vial) 100 mcg STK-MED ONCE .ROUTE ; Start 11/25/20 at 15:15; Stop 11/25/20 at 15:16; Status DC Azithromycin 250 ml @ 250 mls/hr 1X ONCE IV Last administered on 11/25/20at 15:48; Start 11/25/20 at 15:30; Stop 11/25/20 at 16:29; Status DC Metronidazole 100 ml @ 100 mls/hr 1X ONCE IV ; Start 11/25/20 at 16:00; Stop 11/25/20 at 16:59 Iohexol (Omnipaque 350 Mg/ml) 100 ml 1X ONCE IV ; Start 11/25/20 at 16:30; Stop 11/25/20 at 16:31; Status DC Info (CONTRAST GIVEN -- Rx MONITORING) 1 each PRN DAILY PRN MC SEE COMMENTS; Start 11/25/20 at 16:45; Stop 11/27/20 at 16:44 Active Scripts Active Reported Pseudoephedrine (Pseudoephedrine Hcl) 120 Mg Tablet.er 1 Tab PO BID Cetirizine Hcl 10 Mg Tablet 1 Tab PO DAILY Omeprazole 20 Mg Capsule.dr 1 Cap PO DAILY Symbicort 160-4.5 Mcg Inhaler (Budesonide/Formoterol Fumarate) 10.2 Gm Hfa.aer.ad 2 Puff IH BID ROS: Review of Systems Review of System REVIEW OF SYSTEMS: GENERAL: Denies weakness SKIN: No bruising, hair changes or rashes. EYES: No blurred, double or loss of vision. NOSE AND THROAT: No history of nosebleeds, hoarseness or sore throat. HEART: No history of palpitations, chest pain or shortness of breath on exertion. LUNGS: Denies cough, hemoptysis, wheezing or shortness of breath. GASTROINTESTINAL: Denies changes in appetite, nausea, vomiting, diarrhea or constipation. GENITOURINARY: No history of frequency, urgency, hesitancy or nocturia. NEUROLOGIC: Denies history of numbness, tingling, or tremor. PSYCHIATRIC: No history of panic, anxiety or depression. ENDOCRINE: No history of heat or cold intolerance, polyuria or polydipsia. EXTREMITIES: Denies joint pain, pain on walking or stiffness. Physical Exam: Vital Signs: Vital Signs Date Time Temp Pulse Resp B/P (MAP) Pulse Ox O2 Delivery O2 Flow Rate FiO2 11/25/20 15:24 20 97 Nasal Cannula 2.5 11/25/20 14:27 101.8 140/75 (96) 101.8 Physcial Exam: GEN: No apparent distress. Alert and oriented HEENT: Normal cephalic, atraumatic, external auditory canals are patent EYES: Extraocular muscles are intact, pupil are equally round and reactive to light and accommodation MUSCULOSKELETAL: Well developed , well nourished, good range of motion ENDOCRINE: No thyromegaly was palpated LYMPHATICS: No cervical chain or axillary nodes were noted HEMATOPOIETIC: No bruising NECK: Supple, no JVD, no thyromegaly was noted LUNGS: Clear to auscultation in all lung p[place] without rhonchi or wheezing HEART: RRR, S!, S2 present. Peripheral pulses intact, no obvious murmurs noted ABDOMEN: Soft, nontender. Positive bowel sounds, no organomegaly, normal bowel sounds EXTREMITIES: Without clubbing, cyanosis, or edema. Pedal pulses intact. Negative Homans sign NEUROLOGIC: Normal speech and tone. A&O x 3, moves all extremities, no obvi ous focal deficits PSYCHIATRIC: Normal affect, normal mood. Stable SKIN: No ulcerations or rashes, good skin turgor, no jaundice VASCULAR: Good capillary refill, neurovascular bundle appears to be intact Labs: Labs: Laboratory Tests Test 11/25/20 15:06 White Blood Count 8.2 x10^3/uL (4.0-11.0) Red Blood Count 4.11 x10^6/uL (4.30-5.70) Hemoglobin 13.9 g/dL (13.0-17.5) Hematocrit 39.7 % (39.0-53.0) Mean Corpuscular Volume 97 fL (79-100) Mean Corpuscular Hemoglobin 34 pg (25-35) Mean Corpuscular Hemoglobin Concent 35 g/dL (31-37) Red Cell Distribution Width 12.8 % (11.5-14.5) Platelet Count 345 x10^3/uL (140-400) Neutrophils (%) (Auto) 84 % (31-73) Lymphocytes (%) (Auto) 7 % (24-48) Monocytes (%) (Auto) 10 % (0-9) Eosinophils (%) (Auto) 0 % (0-3) Basophils (%) (Auto) 0 % (0-3) Neutrophils # (Auto) 6.9 x10^3/uL (1.8-7.7) Lymphocytes # (Auto) 0.5 x10^3/uL (1.0-4.8) Monocytes # (Auto) 0.8 x10^3/uL (0.0-1.1) Eosinophils # (Auto) 0.0 x10^3/uL (0.0-0.7) Basophils # (Auto) 0.0 x10^3/uL (0.0-0.2) D-Dimer (Jennifer) 1.67 ug/mlFEU (0.00-0.50) Sodium Level 136 mmol/L (136-145) Potassium Level 4.1 mmol/L (3.5-5.1) Chloride Level 99 mmol/L (98-107) Carbon Dioxide Level 25 mmol/L (21-32) Anion Gap 12 (6-14) Blood Urea Nitrogen 14 mg/dL (8-26) Creatinine 0.6 mg/dL (0.7-1.3) Estimated GFR (Cockcroft-Gault) 138.4 BUN/Creatinine Ratio 23 (6-20) Glucose Level 123 mg/dL (70-99) Lactic Acid Level 1.3 mmol/L (0.4-2.0) Calcium Level 8.8 mg/dL (8.5-10.1) Total Bilirubin 1.0 mg/dL (0.2-1.0) Aspartate Amino Transf (AST/SGOT) 31 U/L (15-37) Alanine Aminotransferase (ALT/SGPT) 43 U/L (16-63) Alkaline Phosphatase 49 U/L (46-116) Creatine Kinase 31 U/L (39-308) Troponin I Quantitative < 0.017 ng/mL (0.000-0.055) ME-Opl-Q-Type Natriuretic Peptide 266 pg/mL (0-124) Total Protein 6.2 g/dL (6.4-8.2) Albumin 2.4 g/dL (3.4-5.0) Albumin/Globulin Ratio 0.6 (1.0-1.7) Laboratory Tests Test 11/25/20 15:06 White Blood Count 8.2 x10^3/uL (4.0-11.0) Red Blood Count 4.11 x10^6/uL (4.30-5.70) Hemoglobin 13.9 g/dL (13.0-17.5) Hematocrit 39.7 % (39.0-53.0) Mean Corpuscular Volume 97 fL (79-100) Mean Corpuscular Hemoglobin 34 pg (25-35) Mean Corpuscular Hemoglobin Concent 35 g/dL (31-37) Red Cell Distribution Width 12.8 % (11.5-14.5) Platelet Count 345 x10^3/uL (140-400) Neutrophils (%) (Auto) 84 % (31-73) Lymphocytes (%) (Auto) 7 % (24-48) Monocytes (%) (Auto) 10 % (0-9) Eosinophils (%) (Auto) 0 % (0-3) Basophils (%) (Auto) 0 % (0-3) Neutrophils # (Auto) 6.9 x10^3/uL (1.8-7.7) Lymphocytes # (Auto) 0.5 x10^3/uL (1.0-4.8) Monocytes # (Auto) 0.8 x10^3/uL (0.0-1.1) Eosinophils # (Auto) 0.0 x10^3/uL (0.0-0.7) Basophils # (Auto) 0.0 x10^3/uL (0.0-0.2) D-Dimer (Jennifer) 1.67 ug/mlFEU (0.00-0.50) Sodium Level 136 mmol/L (136-145) Potassium Level 4.1 mmol/L (3.5-5.1) Chloride Level 99 mmol/L (98-107) Carbon Dioxide Level 25 mmol/L (21-32) Anion Gap 12 (6-14) Blood Urea Nitrogen 14 mg/dL (8-26) Creatinine 0.6 mg/dL (0.7-1.3) Estimated GFR (Cockcroft-Gault) 138.4 BUN/Creatinine Ratio 23 (6-20) Glucose Level 123 mg/dL (70-99) Lactic Acid Level 1.3 mmol/L (0.4-2.0) Calcium Level 8.8 mg/dL (8.5-10.1) Total Bilirubin 1.0 mg/dL (0.2-1.0) Aspartate Amino Transf (AST/SGOT) 31 U/L (15-37) Alanine Aminotransferase (ALT/SGPT) 43 U/L (16-63) Alkaline Phosphatase 49 U/L (46-116) Creatine Kinase 31 U/L (39-308) Troponin I Quantitative < 0.017 ng/mL (0.000-0.055) OE-Hjo-Z-Type Natriuretic Peptide 266 pg/mL (0-124) Total Protein 6.2 g/dL (6.4-8.2) Albumin 2.4 g/dL (3.4-5.0) Albumin/Globulin Ratio 0.6 (1.0-1.7) Images: Images CXR Impression: 1. Small left lateral loculated pneumothorax. 2. Increased left upper lung masslike consolidation with additional consolidations bilaterally, may represent pneumonia although malignancy is possible. Recommend CT to further evaluate. Also recommend comparison with prior biopsy results. 3. Small left pleural effusion. CXR Impression: 1. Chest tube placement with near complete evaluation of pneumothorax. There still some apical pneumothorax identified. There is persistent biapical thic kening of the lungs with a stable left upper lobe mass. Pending chest CTA Assessment/Plan Assessment/Plan Acute respiratory distress due to left pneumothorax and CAP Left loculated pneumothorax concern for empyema status post chest tube placement 11/25/2020 Investigation for COVID-19 infection Elevated D-dimer Severe protein malnutrition Tobacco and alcohol misuse Admit to medicine for further management Pulmonology consult for chest tube management Pending blood and sputum cultures Continue IV empiric antibiotics for pneumonia Lovenox for DVT prophylaxis Regular diet Full code Discussed with RN and SW Disposition inpatient management as above Surrogate decision maker is the Justifications for Admission Other Justification LAURA PEREZ MD Nov 25, 2020 16:55
[2020-11-25] MEDS ORDERED: SENNOSIDES 8.6 MG TABLET PO PRN (17:00)
[2020-11-25] MEDS ORDERED: ONDANSETRON PF 4 MG/2 ML VIAL. IVP PRN (17:00)
[2020-11-25] MEDS ORDERED: DOCUSATE SODIUM 100 MG CAPSULE. PO PRN (17:00)
[2020-11-25] MEDS ORDERED: MORPHINE SULFATE 2 MG/ML VIAL. IV PRN (17:00)
[2020-11-25] MEDS ORDERED: DEXTROSE 50% 25 GM / 50ML DISP.SYRIN. IV PRN (17:00)
--- NOTE | 2020-11-25 17:07 | RAD ---
Exam: CT of chest with contrast INDICATION: Shortness of breath, known MAC infection TECHNIQUE: Sequential axial images through the chest obtained following the administration 100 mL of Isovue-370 IV contrast. Sagittal and coronal reformatted images were reconstructed from the axial elaine a and reviewed. 3-D reformatted images were reconstructed from the axial data and reviewed. Comparisons: Chest x-ray same day, CT chest 06/18/2020 FINDINGS: Utilized portions of the thyroid are unremarkable. No enlarged mediastinal lymph nodes are identified . Heart size is normal. Mild coronary artery calcifications. Thoracic aorta has a normal course and cheri iber. Pulmonary artery is not enlarged. No pulmonary embolus identified within the main, lobar or seg mental pulmonary arteries. Airways are patent. There is a left-sided anterior pleural catheter with a trace left pneumothorax. L arge cavity noted within the left upper lobe measuring approximately 8.8 x 4.2 cm with air-fluid leve l. Dense consolidative changes noted in the left upper lobe. There is a second smaller cavitary cavit y in the left lower lobe measuring approximately 1.7 cm with surrounding dense consolidation. There i s patchy areas of tree-in-bud nodularity and masslike consolidation in the right upper lobe with scat tered areas of internal calcifications. No pleural effusion or thickening. Visualized upper abdomen is unremarkable. No suspicious osseous lesions or acute fractures. IMPRESSION: 1. No pulmonary embolus identified within the main, lobar or segmental pulmonary arteries. 2. When compared to the prior exam in May there has been progressive consolidation in the right upp er lobe, left upper lobe and left lower lobe. This may represent worsening infectious/inflammatory pr ocess. Underlying malignancy is difficult to exclude. 3. The cavitary lesion seen in the left lung have increased in size with a air-fluid level noted wit hin the left upper lobe cavity. Exposure: One or more of the following in the visualized dose reduction techniques were utilized for this examination: 1. Automated exposure control 2. Adjustment of the MA and/or KV according to patient size 3. Use of iterative of reconstructive technique Electronically signed by: Prabha Zamudio MD (11/25/2020 5:05 PM) [facility]
[2020-11-25 17:15] LABS: BASE EXCESS COOX -5 mmol/L (-3-3); HCO3 COOX 20 mmol/L (21-28); METHEMOGLOBIN 0.4 % (0.0-1.9); OXYHEMOGLOBIN 96.7 %; PCO2 COOX 38 mmHg (35-46); PO2 COOX 112 mmHg (75-108); SAT O2 COOX 97 % (92-99)
[2020-11-25 18:30] VITALS: BP 111/76
--- NOTE | 2020-11-25 18:43 | NUR ---
Patient admit from ED around 1814, patient had multiple late IV antibiotics not hung in ER from ER MD. MD Guille notified new orders to D/C ER antibiotics not given and start floor orders.
[2020-11-25] MEDS ORDERED: PIP/TAZO PER PHARMACY MC PRN (18:45)
[2020-11-25 19:00] VITALS: BP 112/75
[2020-11-25] MEDS: PIPERACILLIN/TAZOBACTAM 4.5 GM in IV NORMAL SALINE 100ML 100 ML IV SCH (19:24)
[2020-11-25] MEDS: VANCOMYCIN PER PHARMACY MC PRN (19:45)
--- NOTE | 2020-11-25 19:45 | NUR ---
Pharmacy Vancomycin Dosing Note S:Consulted to monitor and dose vancomycin started 11/25/20. O:CHINO GODINEZ is a 60 year old M with Pneumonia LOCULATED PNEUMOTHORAX . Height: 5 feet, 6 inches Weight: 66.0 kg [place] Body Weight: 63.80 Adjusted Body Weight: 64.68 Dosing Weight: Actual Other Antibiotics: ZOSYN LABS: Last BUN: 14 Last Creatinine: 0.6 Creatinine Clearance: >100 mL/min Last WBC: 8.2 Last Procalcitonin: Tmax (past 24 hours): 101.8 Microbiology: I/O: Drug Levels: Last level: on at Last dose given 11/25/20 at 1925 Vancomycin Dosing: Loading Dose: 1750 mg x1 Dosing Weight: Actual Target Trough: 15-20 A: Based on: Body weight and renal function P: 1. After loading dose, start Vancomycin 1000 mg IV q8h 2. Follow up Trough level on 11/26/20 at 1900 3. Pharmacy will continue to monitor, follow and adjust therapy as needed. TUTU CAPPS RPH, 11/25/201944
--- NOTE | 2020-11-25 19:48 | CONS ---
DATE OF CONSULTATION: 11/25/2020 ATTENDING PHYSICIAN: Dr. Bourgeois. REASON FOR CONSULTATION: The patient is seen in pulmonary consultation at the request of Dr. Bourgeois for increasing shortness of air and history of Mycobacterium avium complex respiratory failure. HISTORY OF PRESENT ILLNESS: The patient is a 60-year-old well known to me from outpatient visits. The patient has a history of Mycobacterium avium complex, he has been on a 3-drug regimen for well over 12 months. At one point, he was off of the medication, he took himself off the medication. He then started having increasing shortness of breath. Had a CT, which revealed cavitary lesion. He underwent bronchoscopy on 11/07/2020. At that time, he had mild mucosal inflammation in the left upper lobe. There was no endobronchial lesion. Cultures to date have revealed again AFB positive organism, the final identification is pending. The patient was at home undergoing his usual regimen for Mycobacterium avium complex. He presented with ongoing fever now for several days. Apparently, his called the primary care doctor. He was placed on some antibiotics. He presented as a consequence of increasing shortness of breath and fever. He also is coughing up some purulent material. Denies any COVID-19 exposures. No nausea, vomiting or diarrhea. The patient was seen in the Emergency Department. He was on oxygen supplementation. He presented with a chest x-ray that revealed a right upper mass-like consolidation. There was also a pneumothorax. The Emergency Room physician placed a chest tube, the pneumothorax greatly improved. He had biapical thickening of the lungs with a stable left upper lobe mass. PAST MEDICAL HISTORY: Otherwise remarkable for Mycobacterium avium complex, tobacco dependent, COPD, and previously abnormal CT chest. REVIEW OF SYSTEMS: CONSTITUTIONAL: No fevers, no chills. EYES: No change in visual acuity. HENT: No nasal congestion or sore throat. PULMONARY: As indicated above. CARDIOVASCULAR: No chest pain. No pressure. GASTROINTESTINAL: No nausea, vomiting or diarrhea. GENITOURINARY: No dysuria or frequency. MUSCULOSKELETAL: No localized muscle aches or joint pains. SKIN: No new skin rashes. NEUROLOGIC: No headaches, diplopia or blurred vision. ALLERGIES: No known drug allergies. HOME MEDICATIONS: List was reviewed. SOCIAL HISTORY: He continues to smoke. There is a history of alcoholism. PHYSICAL EXAMINATION: VITAL SIGNS: He had a temperature of 101.8. He did not appear to be septic. HEENT: Eyes, the sclerae were nonicteric. NECK: Jugular venous distention was not elevated. No lymphadenopathy. CHEST: Full expansion. LUNGS: Bilateral crackles and rales. CARDIOVASCULAR: Regular rate and rhythm with S1, S2. No S3. ABDOMEN: Soft, nontender, and nondistended. EXTREMITIES: No clubbing, cyanosis or edema. LABORATORY DATA: Reviewed. White count was not elevated. He did have a lymphopenia. Chest x-ray once again as indicated above. Microbiology from the left upper lobe from 11/07 revealed mixed upper respiratory elliot. His AFB smear was positive. DNA probe revealed Mycobacterium avium complex. Fungal revealed no culture. IMPRESSION: 1. Acute hypoxemic respiratory failure. 2. Abnormal chest x-ray revealing increasing left upper lobe mass. 3. History of Mycobacterium avium complex, status post bronchoscopy on 11/07 with continue identification of MAC despite 12 months treatment with triple antibiotics. 4. Chronic obstructive pulmonary disease. 5. Tobacco dependent. 6. History of alcoholism. 7. Spontaneous pneumothorax, suspect from disease along with possibly cancer. PLAN: 1. The patient was seen in the Emergency Department and he does not appear to be septic. We will continue empiric antibiotics and IV fluids. 2. No need to admit to the intensive care unit. 3. CT chest. 4. DVT prophylaxis. 5. Send sputum for culture and sensitivity. 6. The patient instructed on the importance of discontinuing tobacco use. 7. I will make further recommendation depending on the CT scan results. I do appreciate the privilege in sharing in this patient's care. HAILEE SANTANA MD DR: WHITLEY/nas JOB#: [id number] / [id number]
[2020-11-25] MEDS ORDERED: AZIT500T4 PO (20:11)
[2020-11-25] MEDS ORDERED: ALBU1.25 NEB (20:11)
[2020-11-25] MEDS ORDERED: TADA5TAB12 PO (20:11)
[2020-11-25] MEDS ORDERED: [UNRECOGNIZED DRUG - CODE] PO (20:11)
[2020-11-25] MEDS ORDERED: RIFA300C3 PO (20:11)
--- NOTE | 2020-11-25 22:13 | EKG ---
[facility] [address] [place] [address] Test Date: 2020-11-25 Test Time: 14:36:09 Pat Name: CHINO GODINEZ Department: Room: [facility] Gender: M Outside Property Agent: : [id number] Requested By: TIRSO SANCHEZ Order Number: [id number] Reading MD: Aleksandar Hogan Measurements Intervals [place] Rate: 143 P: 90 [place]: 118 QRS: 60 QRSD: 82 T: 62 QT: 268 QTc: 419 Interpretive Statements SINUS TACHYCARDIA Electronically Signed On 12-02-2020 14:58:52 TRACK WALKER by Aleksandar Hogan
[2020-11-25 22:24] VITALS: BP 103/70
[2020-11-25] MEDS ORDERED: FAMOTIDINE 20 MG TABLET. PO SCH (22:45)
[2020-11-25] MEDS: FAMOTIDINE 20 MG TABLET. PO PRN (22:54)
[2020-11-25] MEDS ORDERED: IPRATROPIUM/ALBUTEROL 20/100mcg/INH INHALER. INH PRN (23:00)
[2020-11-26] MEDS: PIPERACILLIN/TAZOBACTAM 4.5 GM in IV NORMAL SALINE 100ML 100 ML IV SCH ×4 (00:33→17:21)
[2020-11-26 02:59] VITALS: BP 93/65
[2020-11-26] MEDS: VANCOMYCIN 1 GM in IV NORMAL SALINE 250ML 250 ML IV SCH ×3 (04:17→18:03)
[2020-11-26 07:00] VITALS: BP 104/68
[2020-11-26] MEDS: CETIRIZINE HCL 10 MG TABLET. PO SCH (08:16)
[2020-11-26 09:47] LABS: BASO % 0 % (0-3); EOS % 0 % (0-3); HEMATOCRIT 40.8 % (39.0-53.0); HEMOGLOBIN 14.1 g/dL (13.0-17.5); LYMPH # 1.1 x10^3/uL (1.0-4.8); LYMPH % 13 % (24-48); MEAN CORPUSCULAR HEMOGLOBIN 34 pg (25-35); MEAN CORPUSCULAR HGB CONC 35 g/dL (31-37); MEAN CORPUSCULAR VOLUME 98 fL (79-100); MONO # 0.6 x10^3/uL (0.0-1.1); MONO % 7 % (0-9); NEUT % 80 % (31-73); PLATELET COUNT 363 x10^3/uL (140-400); RED BLOOD COUNT 4.15 x10^6/uL (4.30-5.70); RED CELL DISTRIBUTION WIDTH 13.1 % (11.5-14.5); WHITE BLOOD COUNT 8.8 x10^3/uL (4.0-11.0)
--- NOTE | 2020-11-26 10:00 | PDOC ---
PROGRESS NOTES Date of Service: DATE: 11/26/20 TIME: 09:59 Chief Complaint Chief Complaint Images: Images CXR Impression: 1. Small left lateral loculated pneumothorax. 2. Increased left upper lung masslike consolidation with additional consolidations bilaterally, may represent pneumonia although malignancy is possible. Recommend CT to further evaluate. Also recommend comparison with prior biopsy results. 3. Small left pleural effusion. CXR Impression: 1. Chest tube placement with near complete evaluation of pneumothorax. There still some apical pneumothorax identified. There is persistent biapical thickening of the lungs with a stable left upper lobe mass. Pending chest CTA Assessment/Plan Assessment/Plan Acute respiratory distress due to left pneumothorax and CAP Left loculated pneumothorax concern for empyema status post chest tube placement 11/25/2020 Investigation for COVID-19 infection Elevated D-dimer Severe protein malnutrition Tobacco and alcohol misuse History of Mycobacterium avium complex, status post bronchoscopy on 11/07 with continue identification of MAC despite 12 months treatment with triple antibiotics. Chronic obstructive pulmonary disease. Tobacco dependent. History of alcoholism. Spontaneous pneumothorax, ETIOLOGY possibly cancer. Admit to medicine for further management Pulmonology consult for chest tube management Pending blood and sputum cultures Continue IV empiric antibiotics for pneumonia Lovenox for DVT prophylaxis Regular diet Full code Discussed with RN and SW Disposition inpatient management as above Surrogate decision maker is the The cavitary lesion seen in the left lung have increased in size with a air- fluid level noted within the left upper lobe cavity. Justifications for Admission Justifications for Admission Other Justification History of Present Illness History of Present Illness Chief Complaint: Chief Complain: SOB History of Present Illness: HPI: Patient is a 60-year-old male with past medical history of COPD, MAC infection in the past, recent bronchoscopy with Dr. Dowd on 11/11/2020 who presents with shortness of breath for the past week after getting the bronchoscopy. Patient follows with Dr. Dowd for the past 4 years patient has been on antibiotics for a year for MAC. Patient states also he does have productive cough. Denies fevers, chest pain, abdominal pain, diarrhea. ED course: Patient was found to have a pneumothorax loculated and the chest tube was placed in the ED 8 Yi catheter. Minimal amount of fluid and air was produced. Patient has copious purulent sputum being produced. Past Medical/Surgical History: PMH/PSH: Past Medical History: COPD, MAC disease; left lung mass Past Surgical History: 11/11/20 bronchoscopy; biopsy of lung Allergies: Allergies: Coded Allergies: I S O L A T I O N *CONTACT* (Verified Allergy, Unknown, 09/05/19) Meropenum resistant-strep pneumoniae No Known Medication Allergies (Verified Allergy, Unknown, 09/05/19) Family History: Family History: Reviewed with no relevant findings Social History: Social History: Smoking Status: Current Every Day Smoker Additional Information: quit 2 weeks ago Alcohol Use: Sober Vitals Vitals Vital Signs Date Time Temp Pulse Resp B/P (MAP) Pulse Ox O2 Delivery O2 Flow Rate FiO2 11/26/20 09:03 18 Nasal Cannula 2.0 11/26/20 08:33 99 11/26/20 07:00 97.9 99 104/68 (80) 97.9 Physical Exam Physical Exam Physcial Exam: GEN: No apparent distress. Alert and oriented HEENT: Normal cephalic, atraumatic, external auditory canals are patent EYES: Extraocular muscles are intact, pupil are equally round and reactive to light and accommodation MUSCULOSKELETAL: Well developed , well nourished, good range of motion ENDOCRINE: No thyromegaly was palpated LYMPHATICS: No cervical chain or axillary nodes were noted HEMATOPOIETIC: No bruising NECK: Supple, no JVD, no thyromegaly was noted LUNGS: Clear to auscultation in all lung [place] without rhonchi or wheezing HEART: RRR, S!, S2 present. Peripheral pulses intact, no obvious murmurs noted ABDOMEN: Soft, nontender. Positive bowel sounds, no organomegaly, normal bowel sounds EXTREMITIES: Without clubbing, cyanosis, or edema. Pedal pulses intact. Negative Homans sign NEUROLOGIC: Normal speech and tone. A&O x 3, moves all extremities, no obvious focal deficits PSYCHIATRIC: Normal affect, normal mood. Stable SKIN: No ulcerations or rashes, good skin turgor, no jaundice VASCULAR: Good capillary refill, neurovascular bundle appears to be intact General: Alert, Oriented X3, Cooperative Extremities: No cyanosis, No edema Labs LABS Signed PATIENT: CHINO GODINEZ ACCOUNT: [id number] : 1960 LOCATION: [facility] AGE: 60 SEX: M EXAM STATUS: ADM IN ORD. PHYSICIAN: TIRSO SANCHEZ DO REASON: sob w/known myco avium complex, elevatd d-dimer, r/o pe, malignancy? PROCEDURE: CT ANGIOGRAPHY CHEST Exam: CT of chest with contrast INDICATION: Shortness of breath, known MAC infection TECHNIQUE: Sequential axial images through the chest obtained following the administration 100 mL of Isovue-370 IV contrast. Sagittal and coronal reformatted images were reconstructed from the axial data and reviewed. 3-D reformatted images were reconstructed from the axial data and reviewed. Comparisons: Chest x-ray same day, CT chest 06/18/2020 FINDINGS: Utilized portions of the thyroid are unremarkable. No enlarged mediastinal lymph nodes are identified. Heart size is normal. Mild coronary artery calcifications. Thoracic aorta has a normal course and caliber. Pulmonary artery is not enlarged. No pulmonary embolus identified within the main, lobar or segmental pulmonary arteries. Airways are patent. There is a left-sided anterior pleural catheter with a trace left pneumothorax. Large cavity noted within the left upper lobe measuring approximately 8.8 x 4.2 cm with air-fluid level. Dense consolidative changes noted in the left upper lobe. There is a second smaller cavitary cavity in the left lower lobe measuring approximately 1.7 cm with surrounding dense consolidation. There is patchy areas of tree-in-bud nodularity and masslike consolidation in the right upper lobe with scattered areas of internal calcifications. No pleural effusion or thickening. Visualized upper abdomen is unremarkable. No suspicious osseous lesions or acute fractures. IMPRESSION: 1. No pulmonary embolus identified within the main, lobar or segmental pulmonary arteries. 2. When compared to the prior exam in May there has been progressive consolidation in the right upper lobe, left upper lobe and left lower lobe. This may represent worsening infectious/inflammatory process. Underlying malignancy is difficult to exclude. 3. The cavitary lesion seen in the left lung have increased in size with a air- fluid level noted within the left upper lobe cavity. Exposure: One or more of the following in the visualized dose reduction techniques were utilized for this examination: 1. Automated exposure control 2. Adjustment of the MA and/or KV according to patient size 3. Use of iterative of reconstructive technique Electronically signed by: Prabha Shen MD (11/25/2020 5:05 PM) [facility]IENT: CHINO GODINEZ ACCOUNT: [id number] : 1960 LOCATION: 2 [facility]OUTH AGE: 60 SEX: M EXAM STATUS: ADM IN ORD. PHYSICIAN: TIRSO SANCHEZ DO REASON: sob w/known myco avium complex, elevatd d-dimer, r/o pe, malignancy? PROCEDURE: CT ANGIOGRAPHY CHEST Exam: CT of chest with contrast INDICATION: Shortness of breath, known MAC infection TECHNIQUE: Sequential axial images through the chest obtained following the administration 100 mL of Isovue-370 IV contrast. Sagittal and coronal reformatted images were reconstructed from the axial data and reviewed. 3-D reformatted images were reconstructed from the axial data and reviewed. Comparisons: Chest x-ray same day, CT chest 06/18/2020 FINDINGS: Utilized portions of the thyroid are unremarkable. No enlarged mediastinal lymph nodes are identified. Heart size is normal. Mild coronary artery calcifications. Thoracic aorta has a normal course and caliber. Pulmonary artery is not enlarged. No pulmonary embolus identified within the main, lobar or segmental pulmonary arteries. Airways are patent. There is a left-sided anterior pleural catheter with a trace left pneumothorax. Large cavity noted within the left upper lobe measuring approximately 8.8 x 4.2 cm with air-fluid level. Dense consolidative changes noted in the left upper lobe. There is a second smaller cavitary cavity in the left lower lobe measuring approximately 1.7 cm with surrounding dense consolidation. There is patchy areas of tree-in-bud nodularity and masslike consolidation in the right upper lobe with scattered areas of internal calcifications. No pleural effusion or thickening. Visualized upper abdomen is unremarkable. No suspicious osseous lesions or acute fractures. IMPRESSION: 1. No pulmonary embolus identified within the main, lobar or segmental pulmonary arteries. 2. When compared to the prior exam in May there has been progressive consolidation in the right upper lobe, left upper lobe and left lower lobe. This may represent worsening infectious/inflammatory process. Underlying malignancy is difficult to exclude. 3. The cavitary lesion seen in the left lung have increased in size with a air- fluid level noted within the left upper lobe cavity. Exposure: One or more of the following in the visualized dose reduction techniques were utilized for this examination: 1. Automated exposure control 2. Adjustment of the MA and/or KV according to patient size 3. Use of iterative of reconstructive technique Electronically signed by: Prabha Shen MD (11/25/2020 5:05 PM) [facility] DICTATED and SIGNED BY: PRABHA SHEN MD DATE: 11/25/20 [id number] Laboratory Tests Test 11/25/20 15:06 11/25/20 15:52 11/25/20 17:05 11/26/20 08:57 White Blood Count 8.2 x10^3/uL (4.0-11.0) 8.8 x10^3/uL (4.0-11.0) Red Blood Count 4.11 x10^6/uL (4.30-5.70) 4.15 x10^6/uL (4.30-5.70) Hemoglobin 13.9 g/dL (13.0-17.5) 14.1 g/dL (13.0-17.5) Hematocrit 39.7 % (39.0-53.0) 40.8 % (39.0-53.0) Mean Corpuscular Volume 97 fL (79-100) 98 fL (79-100) Mean Corpuscular Hemoglobin 34 pg (25-35) 34 pg (25-35) Mean Corpuscular Hemoglobin Concent 35 g/dL (31-37) 35 g/dL (31-37) Red Cell Distribution Width 12.8 % (11.5-14.5) 13.1 % (11.5-14.5) Platelet Count 345 x10^3/uL (140-400) 363 x10^3/uL (140-400) Neutrophils (%) (Auto) 84 % (31-73) 80 % (31-73) Lymphocytes (%) (Auto) 7 % (24-48) 13 % (24-48) Monocytes (%) (Auto) 10 % (0-9) 7 % (0-9) Eosinophils (%) (Auto) 0 % (0-3) 0 % (0-3) Basophils (%) (Auto) 0 % (0-3) 0 % (0-3) Neutrophils # (Auto) 6.9 x10^3/uL (1.8-7.7) 7.0 x10^3/uL (1.8-7.7) Lymphocytes # (Auto) 0.5 x10^3/uL (1.0-4.8) 1.1 x10^3/uL (1.0-4.8) Monocytes # (Auto) 0.8 x10^3/uL (0.0-1.1) 0.6 x10^3/uL (0.0-1.1) Eosinophils # (Auto) 0.0 x10^3/uL (0.0-0.7) 0.0 x10^3/uL (0.0-0.7) Basophils # (Auto) 0.0 x10^3/uL (0.0-0.2) 0.0 x10^3/uL (0.0-0.2) D-Dimer (Jennifer) 1.67 ug/mlFEU (0.00-0.50) Sodium Level 136 mmol/L (136-145) Potassium Level 4.1 mmol/L (3.5-5.1) Chloride Level 99 mmol/L (98-107) Carbon Dioxide Level 25 mmol/L (21-32) Anion Gap 12 (6-14) Blood Urea Nitrogen 14 mg/dL (8-26) Creatinine 0.6 mg/dL (0.7-1.3) Estimated GFR (Cockcroft-Gault) 138.4 BUN/Creatinine Ratio 23 (6-20) Glucose Level 123 mg/dL (70-99) Lactic Acid Level 1.3 mmol/L (0.4-2.0) Calcium Level 8.8 mg/dL (8.5-10.1) Total Bilirubin 1.0 mg/dL (0.2-1.0) Aspartate Amino Transf (AST/SGOT) 31 U/L (15-37) Alanine Aminotransferase (ALT/SGPT) 43 U/L (16-63) Alkaline Phosphatase 49 U/L (46-116) Creatine Kinase 31 U/L (39-308) Troponin I Quantitative < 0.017 ng/mL (0.000-0.055) KX-Uvb-C-Type Natriuretic Peptide 266 pg/mL (0-124) Total Protein 6.2 g/dL (6.4-8.2) Albumin 2.4 g/dL (3.4-5.0) Albumin/Globulin Ratio 0.6 (1.0-1.7) Influenza Type A Antigen Negative (NEGATIVE) Influenza Type B Antigen Negative (NEGATIVE) O2 Saturation 97 % (92-99) Arterial Blood pH 7.34 (7.35-7.45) Arterial Blood pCO2 at Patient Temp 38 mmHg (35-46) Arterial Blood pO2 at Patient Temp 112 mmHg (75-108) Arterial Blood HCO3 20 mmol/L (21-28) Arterial Blood Base Excess -5 mmol/L (-3-3) Oxyhemoglobin 96.7 % Methemoglobin 0.4 % (0.0-1.9) Carbon Monoxide, Quantitative 0.3 % (0.0-1.9) FiO2 2l nc Assessment and Plan Assessmemt and Plan Problems Medical Problems: (1) Multifocal pneumonia Status: Acute (2) Person under investigation for COVID-19 Status: Acute (3) Sepsis Status: Acute (4) Spontaneous pneumothorax Status: Acute Comment Review of Relevant I have reviewed the following items angelique (where applicable) has been applied. Labs Laboratory Tests Test 11/25/20 15:06 11/25/20 15:52 11/25/20 17:05 11/26/20 08:57 White Blood Count 8.2 x10^3/uL (4.0-11.0) 8.8 x10^3/uL (4.0-11.0) Red Blood Count 4.11 x10^6/uL (4.30-5.70) 4.15 x10^6/uL (4.30-5.70) Hemoglobin 13.9 g/dL (13.0-17.5) 14.1 g/dL (13.0-17.5) Hematocrit 39.7 % (39.0-53.0) 40.8 % (39.0-53.0) Mean Corpuscular Volume 97 fL (79-100) 98 fL (79-100) Mean Corpuscular Hemoglobin 34 pg (25-35) 34 pg (25-35) Mean Corpuscular Hemoglobin Concent 35 g/dL (31-37) 35 g/dL (31-37) Red Cell Distribution Width 12.8 % (11.5-14.5) 13.1 % (11.5-14.5) Platelet Count 345 x10^3/uL (140-400) 363 x10^3/uL (140-400) Neutrophils (%) (Auto) 84 % (31-73) 80 % (31-73) Lymphocytes (%) (Auto) 7 % (24-48) 13 % (24-48) Monocytes (%) (Auto) 10 % (0-9) 7 % (0-9) Eosinophils (%) (Auto) 0 % (0-3) 0 % (0-3) Basophils (%) (Auto) 0 % (0-3) 0 % (0-3) Neutrophils # (Auto) 6.9 x10^3/uL (1.8-7.7) 7.0 x10^3/uL (1.8-7.7) Lymphocytes # (Auto) 0.5 x10^3/uL (1.0-4.8) 1.1 x10^3/uL (1.0-4.8) Monocytes # (Auto) 0.8 x10^3/uL (0.0-1.1) 0.6 x10^3/uL (0.0-1.1) Eosinophils # (Auto) 0.0 x10^3/uL (0.0-0.7) 0.0 x10^3/uL (0.0-0.7) Basophils # (Auto) 0.0 x10^3/uL (0.0-0.2) 0.0 x10^3/uL (0.0-0.2) D-Dimer (Jennifer) 1.67 ug/mlFEU (0.00-0.50) Sodium Level 136 mmol/L (136-145) Potassium Level 4.1 mmol/L (3.5-5.1) Chloride Level 99 mmol/L (98-107) Carbon Dioxide Level 25 mmol/L (21-32) Anion Gap 12 (6-14) Blood Urea Nitrogen 14 mg/dL (8-26) Creatinine 0.6 mg/dL (0.7-1.3) Estimated GFR (Cockcroft-Gault) 138.4 BUN/Creatinine Ratio 23 (6-20) Glucose Level 123 mg/dL (70-99) Lactic Acid Level 1.3 mmol/L (0.4-2.0) Calcium Level 8.8 mg/dL (8.5-10.1) Total Bilirubin 1.0 mg/dL (0.2-1.0) Aspartate Amino Transf (AST/SGOT) 31 U/L (15-37) Alanine Aminotransferase (ALT/SGPT) 43 U/L (16-63) Alkaline Phosphatase 49 U/L (46-116) Creatine Kinase 31 U/L (39-308) Troponin I Quantitative < 0.017 ng/mL (0.000-0.055) SE-Gok-U-Type Natriuretic Peptide 266 pg/mL (0-124) Total Protein 6.2 g/dL (6.4-8.2) Albumin 2.4 g/dL (3.4-5.0) Albumin/Globulin Ratio 0.6 (1.0-1.7) Influenza Type A Antigen Negative (NEGATIVE) Influenza Type B Antigen Negative (NEGATIVE) O2 Saturation 97 % (92-99) Arterial Blood pH 7.34 (7.35-7.45) Arterial Blood pCO2 at Patient Temp 38 mmHg (35-46) Arterial Blood pO2 at Patient Temp 112 mmHg (75-108) Arterial Blood HCO3 20 mmol/L (21-28) Arterial Blood Base Excess -5 mmol/L (-3-3) Oxyhemoglobin 96.7 % Methemoglobin 0.4 % (0.0-1.9) Carbon Monoxide, Quantitative 0.3 % (0.0-1.9) FiO2 2l nc Laboratory Tests Test 11/25/20 15:06 11/25/20 15:52 11/25/20 17:05 11/26/20 08:57 White Blood Count 8.2 x10^3/uL (4.0-11.0) 8.8 x10^3/uL (4.0-11.0) Red Blood Count 4.11 x10^6/uL (4.30-5.70) 4.15 x10^6/uL (4.30-5.70) Hemoglobin 13.9 g/dL (13.0-17.5) 14.1 g/dL (13.0-17.5) Hematocrit 39.7 % (39.0-53.0) 40.8 % (39.0-53.0) Mean Corpuscular Volume 97 fL (79-100) 98 fL (79-100) Mean Corpuscular Hemoglobin 34 pg (25-35) 34 pg (25-35) Mean Corpuscular Hemoglobin Concent 35 g/dL (31-37) 35 g/dL (31-37) Red Cell Distribution Width 12.8 % (11.5-14.5) 13.1 % (11.5-14.5) Platelet Count 345 x10^3/uL (140-400) 363 x10^3/uL (140-400) Neutrophils (%) (Auto) 84 % (31-73) 80 % (31-73) Lymphocytes (%) (Auto) 7 % (24-48) 13 % (24-48) Monocytes (%) (Auto) 10 % (0-9) 7 % (0-9) Eosinophils (%) (Auto) 0 % (0-3) 0 % (0-3) Basophils (%) (Auto) 0 % (0-3) 0 % (0-3) Neutrophils # (Auto) 6.9 x10^3/uL (1.8-7.7) 7.0 x10^3/uL (1.8-7.7) Lymphocytes # (Auto) 0.5 x10^3/uL (1.0-4.8) 1.1 x10^3/uL (1.0-4.8) Monocytes # (Auto) 0.8 x10^3/uL (0.0-1.1) 0.6 x10^3/uL (0.0-1.1) Eosinophils # (Auto) 0.0 x10^3/uL (0.0-0.7) 0.0 x10^3/uL (0.0-0.7) Basophils # (Auto) 0.0 x10^3/uL (0.0-0.2) 0.0 x10^3/uL (0.0-0.2) D-Dimer (Jennifer) 1.67 ug/mlFEU (0.00-0.50) Sodium Level 136 mmol/L (136-145) Potassium Level 4.1 mmol/L (3.5-5.1) Chloride Level 99 mmol/L (98-107) Carbon Dioxide Level 25 mmol/L (21-32) Anion Gap 12 (6-14) Blood Urea Nitrogen 14 mg/dL (8-26) Creatinine 0.6 mg/dL (0.7-1.3) Estimated GFR (Cockcroft-Gault) 138.4 BUN/Creatinine Ratio 23 (6-20) Glucose Level 123 mg/dL (70-99) Lactic Acid Level 1.3 mmol/L (0.4-2.0) Calcium Level 8.8 mg/dL (8.5-10.1) Total Bilirubin 1.0 mg/dL (0.2-1.0) Aspartate Amino Transf (AST/SGOT) 31 U/L (15-37) Alanine Aminotransferase (ALT/SGPT) 43 U/L (16-63) Alkaline Phosphatase 49 U/L (46-116) Creatine Kinase 31 U/L (39-308) Troponin I Quantitative < 0.017 ng/mL (0.000-0.055) DA-Ucr-D-Type Natriuretic Peptide 266 pg/mL (0-124) Total Protein 6.2 g/dL (6.4-8.2) Albumin 2.4 g/dL (3.4-5.0) Albumin/Globulin Ratio 0.6 (1.0-1.7) Influenza Type A Antigen Negative (NEGATIVE) Influenza Type B Antigen Negative (NEGATIVE) O2 Saturation 97 % (92-99) Arterial Blood pH 7.34 (7.35-7.45) Arterial Blood pCO2 at Patient Temp 38 mmHg (35-46) Arterial Blood pO2 at Patient Temp 112 mmHg (75-108) Arterial Blood HCO3 20 mmol/L (21-28) Arterial Blood Base Excess -5 mmol/L (-3-3) Oxyhemoglobin 96.7 % Methemoglobin 0.4 % (0.0-1.9) Carbon Monoxide, Quantitative 0.3 % (0.0-1.9) FiO2 2l nc Medications Current Medications Sodium Chloride 1,000 ml @ 1,000 mls/hr Q1H IV Last administered on 11/25/20at 15:27; Start 11/25/20 at 14:45; Stop 11/25/20 at 15:44; Status DC Sodium Chloride 1,000 ml @ 1,000 mls/hr 1X ONCE IV Last administered on 11/25/20at 15:49; Start 11/25/20 at 14:45; Stop 11/25/20 at 15:44; Status DC Vancomycin HCl (Vanco Per Pharmacy) 1 each PRN DAILY PRN MC SEE COMMENTS; Start 11/25/20 at 14:45; Stop 11/25/20 at 18:48; Status DC Piperacillin Sod/ Tazobactam Sod 4.5 gm/Sodium Chloride 100 ml @ 200 mls/hr 1X ONCE IV ; Start 11/25/20 at 14:45; Stop 11/25/20 at 18:42; Status DC Dexamethasone Sodium Phosphate (Decadron) 10 mg 1X ONCE IV Last administered on 11/25/20at 15:22; Start 11/25/20 at 15:00; Stop 11/25/20 at 15:11; Status DC Albuterol/ Ipratropium (Duoneb) 3 ml 1X ONCE NEB Last administered on 11/25/20at 17:07; Start 11/25/20 at 15:00; Stop 11/25/20 at 15:11; Status DC Fentanyl Citrate (Fentanyl 2ml Vial) 100 mcg 1X ONCE IVP Last administered on 11/25/20at 15:24; Start 11/25/20 at 15:15; Stop 11/25/20 at 15:41; Status DC Lidocaine HCl (Lidocaine 1% 20ml Vial) 20 ml 1X ONCE INJ Last administered on 11/25/20at 15:23; Start 11/25/20 at 15:15; Stop 11/25/20 at 15:41; Status DC Ketorolac Tromethamine (Toradol 15mg Vial) 15 mg 1X ONCE IVP Last administered on 11/25/20at 15:24; Start 11/25/20 at 15:15; Stop 11/25/20 at 15:16; Status DC Vancomycin HCl 1.75 gm/Sodium Chloride 500 ml @ 250 mls/hr 1X ONCE IV ; Start 11/25/20 at 15:30; Stop 11/25/20 at 18:42; Status DC Lidocaine HCl (Lidocaine 1% 20ml Vial) 20 ml STK-MED ONCE .ROUTE ; Start 11/25/20 at 15:15; Stop 11/25/20 at 15:16; Status DC Fentanyl Citrate (Fentanyl 2ml Vial) 100 mcg STK-MED ONCE .ROUTE ; Start 11/25/20 at 15:15; Stop 11/25/20 at 15:16; Status DC Azithromycin 250 ml @ 250 mls/hr 1X ONCE IV Last administered on 11/25/20at 15:48; Start 11/25/20 at 15:30; Stop 11/25/20 at 16:29; Status DC Metronidazole 100 ml @ 100 mls/hr 1X ONCE IV ; Start 11/25/20 at 16:00; Stop 11/25/20 at 18:42; Status DC Iohexol (Omnipaque 350 Mg/ml) 100 ml 1X ONCE IV Last administered on 11/25/20at 16:41; Start 11/25/20 at 16:30; Stop 11/25/20 at 16:31; Status DC Info (CONTRAST GIVEN -- Rx MONITORING) 1 each PRN DAILY PRN MC SEE COMMENTS; Start 11/25/20 at 16:45; Stop 11/27/20 at 16:44 Sennosides (Senna) 17.2 mg PRN BID PRN PO CONSTIPATION; Start 11/25/20 at 17:00 Docusate Sodium (Colace) 100 mg PRN DAILY PRN PO HARD STOOLS; Start 11/25/20 at 17:00 Ondansetron HCl (Zofran) 4 mg PRN Q6HRS PRN IVP NAUSEA/VOMITING; Start 11/25/20 at 17:00 Dextrose (Dextrose 50%-Water Syringe) 12.5 gm PRN Q15MIN PRN IV SEE COMMENTS; Start 11/25/20 at 17:00 Acetaminophen (Tylenol) 650 mg PRN Q4HRS PRN PO TEMP OVER 100.4F OR MILD PAIN; Start 11/25/20 at 17:00 Morphine Sulfate (Morphine Sulfate) 1 mg PRN Q1HR PRN IV PAIN - SEE COMMENTS Last administered on 11/26/20at 08:33; Start 11/25/20 at 17:00 Morphine Sulfate (Morphine Sulfate) 2 mg PRN Q2HR PRN IV SEVERE PAIN 7-10; Start 11/25/20 at 04:00; Stop 11/26/20 at 03:59; Status DC Vancomycin HCl (Vanco Per Pharmacy) 1 each PRN DAILY PRN MC SEE COMMENTS Last administered on 11/25/20at 19:45; Start 11/25/20 at 18:45 Piperacillin Sod/ Tazobactam Sod (Zosyn Per Pharmacy) 1 each PRN DAILY PRN MC SEE COMMENTS; Start 11/25/20 at 18:45 Vancomycin HCl 1.75 gm/Sodium Chloride 500 ml @ 250 mls/hr 1X ONCE IV Last administered on 11/25/20at 19:25; Start 11/25/20 at 19:00; Stop 11/25/20 at 20:59; Status DC Piperacillin Sod/ Tazobactam Sod 4.5 gm/Sodium Chloride 100 ml @ 200 mls/hr Q6HRS IV Last administered on 11/26/20at 05:34; Start 11/25/20 at 19:00 Vancomycin HCl 1 gm/Sodium Chloride 250 ml @ 250 mls/hr Q8H IV Last administered on 11/26/20at 04:17; Start 11/26/20 at 03:30 Vancomycin HCl (Vancomycin Trough Level) 1 each 1X ONCE MC ; Start 11/26/20 at 19:00; Stop 11/26/20 at 19:01 Cetirizine HCl (ZyrTEC) 10 mg DAILY PO Last administered on 11/26/20at 08:16; Start 11/26/20 at 09:00 Ethambutol HCl (Myambutol) 1,600 mg QMWF PO ; Start 11/26/20 at 16:00 Rifampin (Rifadin) 600 mg QTUTHSA PO ; Start 11/27/20 at 16:00 Azithromycin (Zithromax) 500 mg QTUTHSA PO ; Start 11/27/20 at 16:00 Famotidine (Pepcid) 20 mg PRN BID PO ; Start 11/25/20 at 22:45; Stop 11/25/20 at 22:43; Status DC Famotidine (Pepcid) 20 mg PRN BID PRN PO INDIGESTION Last administered on 11/25/20at 22:54; Start 11/25/20 at 22:45 Albuterol/ Ipratropium (Combivent Respimat 20-100 Mcg) 2 puff PRN Q6HRS PRN INH SHORTNESS OF BREATH Last administered on 11/26/20at 08:16; Start 11/25/20 at 23:00 Active Scripts Active Reported Albuterol Sulfate Neb Soln (Albuterol Sulfate) 1.25 Mg/3 Ml Vial.neb 1.25 Mg NEB PRN TID PRN Rifampin 300 Mg Capsule 2 Cap PO QTUTHSA Ethambutol Hcl 400 Mg Tablet 4 Tab PO QMWF Cetirizine Hcl 10 Mg Tablet 1 Tab PO DAILY Symbicort 160-4.5 Mcg Inhaler (Budesonide/Formoterol Fumarate) 10.2 Gm Hfa.aer.ad 2 Puff IH BID Azithromycin Tablet (Azithromycin) 500 Mg Tablet 1 Tab PO QTUTHSA Vitals/I & O Vital Sign - Last 24 Hours 11/25/20 11/25/20 11/25/20 11/25/20 14:27 15:08 15:24 15:38 Temp 101.8 101.8 Pulse 142 126 Resp 24 B/P (MAP) 140/75 (96) 134/76 (95) 120/76 (91) Pulse Ox 99 98 97 99 O2 Delivery Nasal Cannula Nasal Cannula Nasal Cannula Nasal Cannula O2 Flow Rate 2.0 2.5 2.5 2.5 11/25/20 11/25/20 11/25/20 11/25/20 16:08 17:05 18:30 19:00 Temp 97.8 97.9 97.8 97.9 Pulse 112 96 93 Resp 24 18 18 B/P (MAP) 110/66 (81) 111/76 (88) 112/75 (87) Pulse Ox 100 99 100 99 O2 Delivery Nasal Cannula Nasal Cannula Nasal Cannula Nasal Cannula O2 Flow Rate 2.5 2.0 2.0 2.0 11/25/20 11/25/20 11/26/20 11/26/20 20:00 22:24 02:59 07:00 Temp 98.1 98.0 97.9 98.1 98.0 97.9 Pulse 86 91 99 Resp 20 B/P (MAP) 103/70 (81) 93/65 (74) 104/68 (80) Pulse Ox 99 100 100 O2 Delivery Nasal Cannula Nasal Cannula Nasal Cannula Nasal Cannula O2 Flow Rate 2.0 2.0 2.0 2.0 11/26/20 11/26/20 08:33 09:03 Resp 20 18 Pulse Ox 99 O2 Delivery Nasal Cannula Nasal Cannula O2 Flow Rate 2.0 2.0 Intake and Output 11/25/20 11/25/20 11/26/20 15:00 23:00 07:00 Intake Total 2850 ml 700 ml Output Total 250 ml 1000 ml Balance 2600 ml -300 ml Justicifation of Admission Dx: Justifications for Admission: Justification of Admission Dx: Yes CHF: Cardiac Arrhythmias Respiratory Failure: Mechanical Ventilation FULBRIGHT,CELIA W MD Nov 26, 2020 10:00
[2020-11-26 10:05] LABS: CALCIUM 9.4 mg/dL (8.5-10.1); CREATININE 0.8 mg/dL (0.7-1.3); GFR 99.3; MAGNESIUM 2.2 mg/dL (1.8-2.4); PHOSPHORUS 3.1 mg/dL (2.6-4.7); POTASSIUM 4.2 mmol/L (3.5-5.1)
[2020-11-26] MEDS: VANCOMYCIN PER PHARMACY MC PRN ×2 (10:35→21:22)
[2020-11-26 10:59] VITALS: BP 119/78
[2020-11-26] MEDS: ACETAMINOPHEN 325 MG TABLET. PO PRN ×2 (11:23→17:21)
--- NOTE | 2020-11-26 13:36 | PDOC ---
PULMONARY PROGRESS NOTES DATE: 11/26/20 TIME: 13:30 Subjective Patient is currently on 2 L nasal cannula Reports cough with yellow/green sputum No other concerns from nursing Vitals Vital Signs Date Time Temp Pulse Resp B/P (MAP) Pulse Ox O2 Delivery O2 Flow Rate FiO2 11/26/20 10:59 98.1 103 18 119/78 (92) 100 Nasal Cannula 2.0 98.1 Comments Patient seen during COVID- pandemic, visual exam performed ROS: No Nausea, No Chest Pain, No Abdominal Pain, No Increase Cough General: Alert Lungs: Crackles Cardiovascular: S1, S2 Abdomen: Soft, Non-tender Neuro Exam: Alert, Oriented Extremities: No Edema Skin: Warm, Dry Labs Laboratory Tests Test 11/25/20 15:06 11/25/20 15:52 11/25/20 17:05 11/26/20 08:57 White Blood Count 8.2 x10^3/uL (4.0-11.0) 8.8 x10^3/uL (4.0-11.0) Red Blood Count 4.11 x10^6/uL (4.30-5.70) 4.15 x10^6/uL (4.30-5.70) Hemoglobin 13.9 g/dL (13.0-17.5) 14.1 g/dL (13.0-17.5) Hematocrit 39.7 % (39.0-53.0) 40.8 % (39.0-53.0) Mean Corpuscular Volume 97 fL (79-100) 98 fL (79-100) Mean Corpuscular Hemoglobin 34 pg (25-35) 34 pg (25-35) Mean Corpuscular Hemoglobin Concent 35 g/dL (31-37) 35 g/dL (31-37) Red Cell Distribution Width 12.8 % (11.5-14.5) 13.1 % (11.5-14.5) Platelet Count 345 x10^3/uL (140-400) 363 x10^3/uL (140-400) Neutrophils (%) (Auto) 84 % (31-73) 80 % (31-73) Lymphocytes (%) (Auto) 7 % (24-48) 13 % (24-48) Monocytes (%) (Auto) 10 % (0-9) 7 % (0-9) Eosinophils (%) (Auto) 0 % (0-3) 0 % (0-3) Basophils (%) (Auto) 0 % (0-3) 0 % (0-3) Neutrophils # (Auto) 6.9 x10^3/uL (1.8-7.7) 7.0 x10^3/uL (1.8-7.7) Lymphocytes # (Auto) 0.5 x10^3/uL (1.0-4.8) 1.1 x10^3/uL (1.0-4.8) Monocytes # (Auto) 0.8 x10^3/uL (0.0-1.1) 0.6 x10^3/uL (0.0-1.1) Eosinophils # (Auto) 0.0 x10^3/uL (0.0-0.7) 0.0 x10^3/uL (0.0-0.7) Basophils # (Auto) 0.0 x10^3/uL (0.0-0.2) 0.0 x10^3/uL (0.0-0.2) D-Dimer (Jennifer) 1.67 ug/mlFEU (0.00-0.50) Sodium Level 136 mmol/L (136-145) 138 mmol/L (136-145) Potassium Level 4.1 mmol/L (3.5-5.1) 4.2 mmol/L (3.5-5.1) Chloride Level 99 mmol/L (98-107) 101 mmol/L (98-107) Carbon Dioxide Level 25 mmol/L (21-32) 28 mmol/L (21-32) Anion Gap 12 (6-14) 9 (6-14) Blood Urea Nitrogen 14 mg/dL (8-26) 13 mg/dL (8-26) Creatinine 0.6 mg/dL (0.7-1.3) 0.8 mg/dL (0.7-1.3) Estimated GFR (Cockcroft-Gault) 138.4 99.3 BUN/Creatinine Ratio 23 (6-20) Glucose Level 123 mg/dL (70-99) 122 mg/dL (70-99) Lactic Acid Level 1.3 mmol/L (0.4-2.0) Calcium Level 8.8 mg/dL (8.5-10.1) 9.4 mg/dL (8.5-10.1) Total Bilirubin 1.0 mg/dL (0.2-1.0) Aspartate Amino Transf (AST/SGOT) 31 U/L (15-37) Alanine Aminotransferase (ALT/SGPT) 43 U/L (16-63) Alkaline Phosphatase 49 U/L (46-116) Creatine Kinase 31 U/L (39-308) Troponin I Quantitative < 0.017 ng/mL (0.000-0.055) WT-Lao-I-Type Natriuretic Peptide 266 pg/mL (0-124) Total Protein 6.2 g/dL (6.4-8.2) Albumin 2.4 g/dL (3.4-5.0) Albumin/Globulin Ratio 0.6 (1.0-1.7) Influenza Type A Antigen Negative (NEGATIVE) Influenza Type B Antigen Negative (NEGATIVE) O2 Saturation 97 % (92-99) Arterial Blood pH 7.34 (7.35-7.45) Arterial Blood pCO2 at Patient Temp 38 mmHg (35-46) Arterial Blood pO2 at Patient Temp 112 mmHg (75-108) Arterial Blood HCO3 20 mmol/L (21-28) Arterial Blood Base Excess -5 mmol/L (-3-3) Oxyhemoglobin 96.7 % Methemoglobin 0.4 % (0.0-1.9) Carbon Monoxide, Quantitative 0.3 % (0.0-1.9) FiO2 2l nc Phosphorus Level 3.1 mg/dL (2.6-4.7) Magnesium Level 2.2 mg/dL (1.8-2.4) Laboratory Tests Test 11/25/20 15:06 11/25/20 15:52 11/25/20 17:05 11/26/20 08:57 White Blood Count 8.2 x10^3/uL (4.0-11.0) 8.8 x10^3/uL (4.0-11.0) Red Blood Count 4.11 x10^6/uL (4.30-5.70) 4.15 x10^6/uL (4.30-5.70) Hemoglobin 13.9 g/dL (13.0-17.5) 14.1 g/dL (13.0-17.5) Hematocrit 39.7 % (39.0-53.0) 40.8 % (39.0-53.0) Mean Corpuscular Volume 97 fL (79-100) 98 fL (79-100) Mean Corpuscular Hemoglobin 34 pg (25-35) 34 pg (25-35) Mean Corpuscular Hemoglobin Concent 35 g/dL (31-37) 35 g/dL (31-37) Red Cell Distribution Width 12.8 % (11.5-14.5) 13.1 % (11.5-14.5) Platelet Count 345 x10^3/uL (140-400) 363 x10^3/uL (140-400) Neutrophils (%) (Auto) 84 % (31-73) 80 % (31-73) Lymphocytes (%) (Auto) 7 % (24-48) 13 % (24-48) Monocytes (%) (Auto) 10 % (0-9) 7 % (0-9) Eosinophils (%) (Auto) 0 % (0-3) 0 % (0-3) Basophils (%) (Auto) 0 % (0-3) 0 % (0-3) Neutrophils # (Auto) 6.9 x10^3/uL (1.8-7.7) 7.0 x10^3/uL (1.8-7.7) Lymphocytes # (Auto) 0.5 x10^3/uL (1.0-4.8) 1.1 x10^3/uL (1.0-4.8) Monocytes # (Auto) 0.8 x10^3/uL (0.0-1.1) 0.6 x10^3/uL (0.0-1.1) Eosinophils # (Auto) 0.0 x10^3/uL (0.0-0.7) 0.0 x10^3/uL (0.0-0.7) Basophils # (Auto) 0.0 x10^3/uL (0.0-0.2) 0.0 x10^3/uL (0.0-0.2) D-Dimer (Jennifer) 1.67 ug/mlFEU (0.00-0.50) Sodium Level 136 mmol/L (136-145) 138 mmol/L (136-145) Potassium Level 4.1 mmol/L (3.5-5.1) 4.2 mmol/L (3.5-5.1) Chloride Level 99 mmol/L (98-107) 101 mmol/L (98-107) Carbon Dioxide Level 25 mmol/L (21-32) 28 mmol/L (21-32) Anion Gap 12 (6-14) 9 (6-14) Blood Urea Nitrogen 14 mg/dL (8-26) 13 mg/dL (8-26) Creatinine 0.6 mg/dL (0.7-1.3) 0.8 mg/dL (0.7-1.3) Estimated GFR (Cockcroft-Gault) 138.4 99.3 BUN/Creatinine Ratio 23 (6-20) Glucose Level 123 mg/dL (70-99) 122 mg/dL (70-99) Lactic Acid Level 1.3 mmol/L (0.4-2.0) Calcium Level 8.8 mg/dL (8.5-10.1) 9.4 mg/dL (8.5-10.1) Total Bilirubin 1.0 mg/dL (0.2-1.0) Aspartate Amino Transf (AST/SGOT) 31 U/L (15-37) Alanine Aminotransferase (ALT/SGPT) 43 U/L (16-63) Alkaline Phosphatase 49 U/L (46-116) Creatine Kinase 31 U/L (39-308) Troponin I Quantitative < 0.017 ng/mL (0.000-0.055) PN-Xsv-Z-Type Natriuretic Peptide 266 pg/mL (0-124) Total Protein 6.2 g/dL (6.4-8.2) Albumin 2.4 g/dL (3.4-5.0) Albumin/Globulin Ratio 0.6 (1.0-1.7) Influenza Type A Antigen Negative (NEGATIVE) Influenza Type B Antigen Negative (NEGATIVE) O2 Saturation 97 % (92-99) Arterial Blood pH 7.34 (7.35-7.45) Arterial Blood pCO2 at Patient Temp 38 mmHg (35-46) Arterial Blood pO2 at Patient Temp 112 mmHg (75-108) Arterial Blood HCO3 20 mmol/L (21-28) Arterial Blood Base Excess -5 mmol/L (-3-3) Oxyhemoglobin 96.7 % Methemoglobin 0.4 % (0.0-1.9) Carbon Monoxide, Quantitative 0.3 % (0.0-1.9) FiO2 2l nc Phosphorus Level 3.1 mg/dL (2.6-4.7) Magnesium Level 2.2 mg/dL (1.8-2.4) Medications Active Scripts Medications Dose Route/Sig Max Daily Dose Days Date Category Albuterol Sulfate Neb Soln (Albuterol Sulfate) 1.25 Mg/3 Ml Vial.neb 1.25 Mg NEB PRN TID PRN 11/25/20 Reported Rifampin 300 Mg Capsule 2 Cap PO QTUTHSA 11/25/20 Reported Ethambutol Hcl 400 Mg Tablet 4 Tab PO QMWF 11/25/20 Reported Cetirizine Hcl 10 Mg Tablet 1 Tab PO DAILY 09/05/19 Reported Symbicort 160-4.5 Mcg Inhaler (Budesonide/Formoterol Fumarate) 10.2 Gm Hfa.aer.ad 2 Puff IH BID 06/20/19 Reported Azithromycin Tablet (Azithromycin) 500 Mg Tablet 1 Tab PO QTUTHSA 11/25/20 Reported Comments CTA chest IMPRESSION: 1. No pulmonary embolus identified within the main, lobar or segmental pulmonary arteries. 2. When compared to the prior exam in May there has been progressive consolidation in the right upper lobe, left upper lobe and left lower lobe. This may represent worsening infectious/inflammatory process. Underlying malignancy is difficult to exclude. 3. The cavitary lesion seen in the left lung have increased in size with a air- fluid level noted within the left upper lobe cavity. Impression . IMPRESSION: 1. Acute hypoxemic respiratory failure. 2. Abnormal chest x-ray revealing increasing left upper lobe mass. 3. History of Mycobacterium avium complex, status post bronchoscopy on 11/07 with continue identification of MAC despite 12 months treatment with triple antibiotics. 4. Chronic obstructive pulmonary disease. 5. Tobacco dependent. 6. History of alcoholism. 7. Spontaneous pneumothorax, suspect from disease along with possibly cancer. Plan . PLAN: Continue supplemental oxygen to keep oxygen saturations greater than 92%, Continue left chest tube, with daily chest x-rays Influenza negative Await COVID-19 results, continue isolation precautions CT of chest reviewed: Negative for pulmonary embolism, ongoing/worsening infectious/inflammatory process, cavitary lesion in the left lung increased in size with air-fluid level noted with the left upper lobe cavity Continue bronchodilators Continue empiric antibiotics--- follow cultures----Gram positive rods, Gram positive cocci on resp. culture Consult infectious disease DVT/GI prophylaxis Discussed with RN and RT HAILEE SANTANA MD Nov 26, 2020 13:36
[2020-11-26 14:33] VITALS: BP 118/66
--- NOTE | 2020-11-26 14:44 | NUR ---
SS following for discharge planning. SS reviewed pt chart and discussed with pt RN. Pt is from home with spouse and is currently requiring oxygen. COVID19 test pending. Pt on IV Vancomycin and IV Zosyn. Chest tube in place. SS will continue to follow for discharge planning.
[2020-11-26] MEDS: ETHAMBUTOL HCL 400 MG TABLET PO SCH (16:22)
[2020-11-26] MEDS: PANTOPRAZOLE 40 MG TABLET.DR. PO SCH (19:15)
[2020-11-26] MEDS: NICOTINE 21MG PATCH. TD SCH (19:15)
[2020-11-26 19:49] LABS: VANC TR 24.7 mcg/mL (10.0-20.0)
[2020-11-26 19:59] VITALS: BP 95/61
--- NOTE | 2020-11-26 21:25 | NUR ---
Pharmacy Vancomycin Dosing Note S:Consulted to monitor and dose vancomycin started 11/25/20. O:CHINO GODINEZ is a 60 year old M with Pneumonia LOCULATED PNEUMOTHORAX . Height: 5 feet, 6 inches Weight: 68.7 kg [place] Body Weight: 63.80 Adjusted Body Weight: 65.76 Dosing Weight: Actual Other Antibiotics: ZOSYN LABS: Last BUN: 13 Last Creatinine: 0.8 Creatinine Clearance: 91 mL/min Last WBC: 8.8 Last Procalcitonin: Tmax (past 24 hours): 99.2 Microbiology: 11/26 Trough came back at 24.7. Upon further review, dose was given at 1803. Called nurse to reschedule trough and was told no troughs are drawn between 12MN and 6AM. Verified by Arthur. New trough scheduled for 11:00 on 11/27/2020. I/O: 3550 / 1250 Drug Levels: Last Trough level: 24.7 on 11/26/20 at 1923 Last dose given 11/26/20 at 1803 Vancomycin Dosing: Loading Dose: 1750 mg x1 Dosing Weight: Actual Target Trough: 15-20 A: Based on trough taken 1:30 minutes after last dose, trough rescheduled: P: 1. Continue Vancomycin 1000 mg IV q8h. 2. Follow up Trough level on 11/27/20 at 1100. 3. Pharmacy will continue to monitor, follow and adjust therapy as needed. Andrae Balderas [facility], 11/26/20 [id number]
[2020-11-26 22:44] VITALS: BP 100/64
[2020-11-27] MEDS: VANCOMYCIN 1 GM in IV NORMAL SALINE 250ML 250 ML IV SCH (03:30)
[2020-11-27 03:59] VITALS: BP 101/64
[2020-11-27] MEDS: PIPERACILLIN/TAZOBACTAM 4.5 GM in IV NORMAL SALINE 100ML 100 ML IV SCH ×5 (06:01→23:50)
[2020-11-27 06:11] VITALS: BP 104/66
--- NOTE | 2020-11-27 08:21 | PDOC ---
PROGRESS NOTES Date of Service: DATE: 11/27/20 TIME: 08:21 Chief Complaint Chief Complaint Images: Images CXR Impression: 1. Small left lateral loculated pneumothorax. 2. Increased left upper lung masslike consolidation with additional consolidations bilaterally, may represent pneumonia although malignancy is possible. Recommend CT to further evaluate. Also recommend comparison with prior biopsy results. 3. Small left pleural effusion. CXR Impression: 1. Chest tube placement with near complete evaluation of pneumothorax. There still some apical pneumothorax identified. There is persistent biapical thickening of the lungs with a stable left upper lobe mass. Pending chest CTA Assessment/Plan Assessment/Plan Acute respiratory distress due to left pneumothorax and CAP Left loculated pneumothorax concern for empyema status post chest tube placement 11/25/2020 Investigation for COVID-19 infection Elevated D-dimer Severe protein malnutrition Tobacco and alcohol misuse History of Mycobacterium avium complex, status post bronchoscopy on 11/07 with continue identification of MAC despite 12 months treatment with triple antibiotics. Chronic obstructive pulmonary disease. Tobacco dependent. History of alcoholism. Spontaneous pneumothorax, ETIOLOGY possibly cancer. Admit to medicine for further management Pulmonology consult for chest tube management Pending blood and sputum cultures Continue IV empiric antibiotics for pneumonia Lovenox for DVT prophylaxis Regular diet Full code Discussed with RN and SW Disposition inpatient management as above Surrogate decision maker is the The cavitary lesion seen in the left lung have increased in size with a air- fluid level noted within the left upper lobe cavity. 39 min pt exam, chart review, > 50% of time spent with exam, chart review, pt care coordination Justifications for Admission Justifications for Admission Other Justification History of Present Illness History of Present Illness Chief Complaint: Chief Complain: SOB History of Present Illness: HPI: Patient is a 60-year-old male with past medical history of COPD, MAC infection in the past, recent bronchoscopy with Dr. Dowd on 11/11/2020 who presents with shortness of breath for the past week after getting the bronchoscopy. Patient follows with Dr. Dowd for the past 4 years patient has been on antibiotics for a year for MAC. Patient states also he does have productive cough. Denies fevers, chest pain, abdominal pain, diarrhea. ED course: Patient was found to have a pneumothorax loculated and the chest tube was placed in the ED 8 Maltese catheter. Minimal amount of fluid and air was produced. Patient has copious purulent sputum being produced. Past Medical/Surgical History: PMH/PSH: Past Medical History: COPD, MAC disease; left lung mass Past Surgical History: 11/11/20 bronchoscopy; biopsy of lung Allergies: Allergies: Coded Allergies: I S O L A T I O N *CONTACT* (Verified Allergy, Unknown, 09/05/19) Meropenum resistant-strep pneumoniae No Known Medication Allergies (Verified Allergy, Unknown, 09/05/19) Family History: Family History: Reviewed with no relevant findings Social History: Social History: Smoking Status: Current Every Day Smoker Additional Information: quit 2 weeks ago Alcohol Use: Sober Vitals Vitals Vital Signs Date Time Temp Pulse Resp B/P (MAP) Pulse Ox O2 Delivery O2 Flow Rate FiO2 11/27/20 06:11 97.2 112 26 104/66 (79) 96 Nasal Cannula 2.0 97.2 Physical Exam Physical Exam Physcial Exam: GEN: No apparent distress. Alert and oriented HEENT: Normal cephalic, atraumatic, external auditory canals are patent EYES: Extraocular muscles are intact, pupil are equally round and reactive to light and accommodation MUSCULOSKELETAL: Well developed , well nourished, good range of motion ENDOCRINE: No thyromegaly was palpated LYMPHATICS: No cervical chain or axillary nodes were noted HEMATOPOIETIC: No bruising NECK: Supple, no JVD, no thyromegaly was noted LUNGS: Clear to auscultation in all lung [place] without rhonchi or wheezing HEART: RRR, S!, S2 present. Peripheral pulses intact, no obvious murmurs noted ABDOMEN: Soft, nontender. Positive bowel sounds, no organomegaly, normal bowel sounds EXTREMITIES: Without clubbing, cyanosis, or edema. Pedal pulses intact. Negative Homans sign NEUROLOGIC: Normal speech and tone. A&O x 3, moves all extremities, no obvious focal deficits PSYCHIATRIC: Normal affect, normal mood. Stable SKIN: No ulcerations or rashes, good skin turgor, no jaundice VASCULAR: Good capillary refill, neurovascular bundle appears to be intact General: Alert, Oriented X3, Cooperative Lungs: Crackles Extremities: No cyanosis, No edema Labs LABS XR CHEST 1V History: Reason: 244 - pna / Spl. Instructions: / History: Comparison: November 25, 2020 Findings: Decreased left pneumothorax. Slight retraction of left chest tube. Decreased left upper lung masslike consolidation. Additional multifocal pulmonary opacities bilaterally, similar compared to prior. No pleural effusion. Unchanged heart size. Prior granulomatous disease within the chest. Impression: 1. Decreased left pneumothorax. Slight retraction of left chest tube. 2. Decreased left upper lung masslike consolidation. 3. Additional multifocal opacities, unchanged. Electronically signed by: Kevin Banegas DO (11/27/2020 10:26 AM) [id number] DICTATED and SIGNED BY: KEVIN BANEGAS DO DATE: 11/27/20 [id number] Laboratory Tests Test 11/26/20 08:57 11/26/20 19:23 White Blood Count 8.8 x10^3/uL (4.0-11.0) Red Blood Count 4.15 x10^6/uL (4.30-5.70) Hemoglobin 14.1 g/dL (13.0-17.5) Hematocrit 40.8 % (39.0-53.0) Mean Corpuscular Volume 98 fL (79-100) Mean Corpuscular Hemoglobin 34 pg (25-35) Mean Corpuscular Hemoglobin Concent 35 g/dL (31-37) Red Cell Distribution Width 13.1 % (11.5-14.5) Platelet Count 363 x10^3/uL (140-400) Neutrophils (%) (Auto) 80 % (31-73) Lymphocytes (%) (Auto) 13 % (24-48) Monocytes (%) (Auto) 7 % (0-9) Eosinophils (%) (Auto) 0 % (0-3) Basophils (%) (Auto) 0 % (0-3) Neutrophils # (Auto) 7.0 x10^3/uL (1.8-7.7) Lymphocytes # (Auto) 1.1 x10^3/uL (1.0-4.8) Monocytes # (Auto) 0.6 x10^3/uL (0.0-1.1) Eosinophils # (Auto) 0.0 x10^3/uL (0.0-0.7) Basophils # (Auto) 0.0 x10^3/uL (0.0-0.2) Sodium Level 138 mmol/L (136-145) Potassium Level 4.2 mmol/L (3.5-5.1) Chloride Level 101 mmol/L (98-107) Carbon Dioxide Level 28 mmol/L (21-32) Anion Gap 9 (6-14) Blood Urea Nitrogen 13 mg/dL (8-26) Creatinine 0.8 mg/dL (0.7-1.3) Estimated GFR (Cockcroft-Gault) 99.3 Glucose Level 122 mg/dL (70-99) Calcium Level 9.4 mg/dL (8.5-10.1) Phosphorus Level 3.1 mg/dL (2.6-4.7) Magnesium Level 2.2 mg/dL (1.8-2.4) Vancomycin Level Trough 24.7 mcg/mL (10.0-20.0) Vancomycin Last Dose Date 11/26/20 Vancomycin Last Dose Time 1130 Assessment and Plan Assessmemt and Plan Problems Medical Problems: (1) Multifocal pneumonia Status: Acute (2) Person under investigation for COVID-19 Status: Acute (3) Sepsis Status: Acute (4) Spontaneous pneumothorax Status: Acute Comment Review of Relevant I have reviewed the following items angelique (where applicable) has been applied. Labs Laboratory Tests Test 11/25/20 15:06 11/25/20 15:52 11/25/20 17:05 11/26/20 08:57 White Blood Count 8.2 x10^3/uL (4.0-11.0) 8.8 x10^3/uL (4.0-11.0) Red Blood Count 4.11 x10^6/uL (4.30-5.70) 4.15 x10^6/uL (4.30-5.70) Hemoglobin 13.9 g/dL (13.0-17.5) 14.1 g/dL (13.0-17.5) Hematocrit 39.7 % (39.0-53.0) 40.8 % (39.0-53.0) Mean Corpuscular Volume 97 fL (79-100) 98 fL (79-100) Mean Corpuscular Hemoglobin 34 pg (25-35) 34 pg (25-35) Mean Corpuscular Hemoglobin Concent 35 g/dL (31-37) 35 g/dL (31-37) Red Cell Distribution Width 12.8 % (11.5-14.5) 13.1 % (11.5-14.5) Platelet Count 345 x10^3/uL (140-400) 363 x10^3/uL (140-400) Neutrophils (%) (Auto) 84 % (31-73) 80 % (31-73) Lymphocytes (%) (Auto) 7 % (24-48) 13 % (24-48) Monocytes (%) (Auto) 10 % (0-9) 7 % (0-9) Eosinophils (%) (Auto) 0 % (0-3) 0 % (0-3) Basophils (%) (Auto) 0 % (0-3) 0 % (0-3) Neutrophils # (Auto) 6.9 x10^3/uL (1.8-7.7) 7.0 x10^3/uL (1.8-7.7) Lymphocytes # (Auto) 0.5 x10^3/uL (1.0-4.8) 1.1 x10^3/uL (1.0-4.8) Monocytes # (Auto) 0.8 x10^3/uL (0.0-1.1) 0.6 x10^3/uL (0.0-1.1) Eosinophils # (Auto) 0.0 x10^3/uL (0.0-0.7) 0.0 x10^3/uL (0.0-0.7) Basophils # (Auto) 0.0 x10^3/uL (0.0-0.2) 0.0 x10^3/uL (0.0-0.2) D-Dimer (Jennifer) 1.67 ug/mlFEU (0.00-0.50) Sodium Level 136 mmol/L (136-145) 138 mmol/L (136-145) Potassium Level 4.1 mmol/L (3.5-5.1) 4.2 mmol/L (3.5-5.1) Chloride Level 99 mmol/L (98-107) 101 mmol/L (98-107) Carbon Dioxide Level 25 mmol/L (21-32) 28 mmol/L (21-32) Anion Gap 12 (6-14) 9 (6-14) Blood Urea Nitrogen 14 mg/dL (8-26) 13 mg/dL (8-26) Creatinine 0.6 mg/dL (0.7-1.3) 0.8 mg/dL (0.7-1.3) Estimated GFR (Cockcroft-Gault) 138.4 99.3 BUN/Creatinine Ratio 23 (6-20) Glucose Level 123 mg/dL (70-99) 122 mg/dL (70-99) Lactic Acid Level 1.3 mmol/L (0.4-2.0) Calcium Level 8.8 mg/dL (8.5-10.1) 9.4 mg/dL (8.5-10.1) Total Bilirubin 1.0 mg/dL (0.2-1.0) Aspartate Amino Transf (AST/SGOT) 31 U/L (15-37) Alanine Aminotransferase (ALT/SGPT) 43 U/L (16-63) Alkaline Phosphatase 49 U/L (46-116) Creatine Kinase 31 U/L (39-308) Troponin I Quantitative < 0.017 ng/mL (0.000-0.055) IV-Fkt-O-Type Natriuretic Peptide 266 pg/mL (0-124) Total Protein 6.2 g/dL (6.4-8.2) Albumin 2.4 g/dL (3.4-5.0) Albumin/Globulin Ratio 0.6 (1.0-1.7) Influenza Type A Antigen Negative (NEGATIVE) Influenza Type B Antigen Negative (NEGATIVE) O2 Saturation 97 % (92-99) Arterial Blood pH 7.34 (7.35-7.45) Arterial Blood pCO2 at Patient Temp 38 mmHg (35-46) Arterial Blood pO2 at Patient Temp 112 mmHg (75-108) Arterial Blood HCO3 20 mmol/L (21-28) Arterial Blood Base Excess -5 mmol/L (-3-3) Oxyhemoglobin 96.7 % Methemoglobin 0.4 % (0.0-1.9) Carbon Monoxide, Quantitative 0.3 % (0.0-1.9) FiO2 2l nc Phosphorus Level 3.1 mg/dL (2.6-4.7) Magnesium Level 2.2 mg/dL (1.8-2.4) Test 11/26/20 19:23 Vancomycin Level Trough 24.7 mcg/mL (10.0-20.0) Vancomycin Last Dose Date 11/26/20 Vancomycin Last Dose Time 1130 Laboratory Tests Test 11/26/20 08:57 11/26/20 19:23 White Blood Count 8.8 x10^3/uL (4.0-11.0) Red Blood Count 4.15 x10^6/uL (4.30-5.70) Hemoglobin 14.1 g/dL (13.0-17.5) Hematocrit 40.8 % (39.0-53.0) Mean Corpuscular Volume 98 fL (79-100) Mean Corpuscular Hemoglobin 34 pg (25-35) Mean Corpuscular Hemoglobin Concent 35 g/dL (31-37) Red Cell Distribution Width 13.1 % (11.5-14.5) Platelet Count 363 x10^3/uL (140-400) Neutrophils (%) (Auto) 80 % (31-73) Lymphocytes (%) (Auto) 13 % (24-48) Monocytes (%) (Auto) 7 % (0-9) Eosinophils (%) (Auto) 0 % (0-3) Basophils (%) (Auto) 0 % (0-3) Neutrophils # (Auto) 7.0 x10^3/uL (1.8-7.7) Lymphocytes # (Auto) 1.1 x10^3/uL (1.0-4.8) Monocytes # (Auto) 0.6 x10^3/uL (0.0-1.1) Eosinophils # (Auto) 0.0 x10^3/uL (0.0-0.7) Basophils # (Auto) 0.0 x10^3/uL (0.0-0.2) Sodium Level 138 mmol/L (136-145) Potassium Level 4.2 mmol/L (3.5-5.1) Chloride Level 101 mmol/L (98-107) Carbon Dioxide Level 28 mmol/L (21-32) Anion Gap 9 (6-14) Blood Urea Nitrogen 13 mg/dL (8-26) Creatinine 0.8 mg/dL (0.7-1.3) Estimated GFR (Cockcroft-Gault) 99.3 Glucose Level 122 mg/dL (70-99) Calcium Level 9.4 mg/dL (8.5-10.1) Phosphorus Level 3.1 mg/dL (2.6-4.7) Magnesium Level 2.2 mg/dL (1.8-2.4) Vancomycin Level Trough 24.7 mcg/mL (10.0-20.0) Vancomycin Last Dose Date 11/26/20 Vancomycin Last Dose Time 1130 Microbiology 11/25/20 Gram Stain Evaluation - Final, Resulted 11/25/20 Respiratory Culture, Resulted Pending 11/25/20 Blood Culture - Preliminary, Resulted NO GROWTH AFTER 1 DAY Medications Current Medications Sodium Chloride 1,000 ml @ 1,000 mls/hr Q1H IV Last administered on 11/25/20at 15:27; Start 11/25/20 at 14:45; Stop 11/25/20 at 15:44; Status DC Sodium Chloride 1,000 ml @ 1,000 mls/hr 1X ONCE IV Last administered on 11/25/20at 15:49; Start 11/25/20 at 14:45; Stop 11/25/20 at 15:44; Status DC Vancomycin HCl (Vanco Per Pharmacy) 1 each PRN DAILY PRN MC SEE COMMENTS; Start 11/25/20 at 14:45; Stop 11/25/20 at 18:48; Status DC Piperacillin Sod/ Tazobactam Sod 4.5 gm/Sodium Chloride 100 ml @ 200 mls/hr 1X ONCE IV ; Start 11/25/20 at 14:45; Stop 11/25/20 at 18:42; Status DC Dexamethasone Sodium Phosphate (Decadron) 10 mg 1X ONCE IV Last administered on 11/25/20at 15:22; Start 11/25/20 at 15:00; Stop 11/25/20 at 15:11; Status DC Albuterol/ Ipratropium (Duoneb) 3 ml 1X ONCE NEB Last administered on 0at 17:07; Start 11/25/20 at 15:00; Stop 11/25/20 at 15:11; Status DC Fentanyl Citrate (Fentanyl 2ml Vial) 100 mcg 1X ONCE IVP Last administered on 11/25/20at 15:24; Start 11/25/20 at 15:15; Stop 11/25/20 at 15:41; Status DC Lidocaine HCl (Lidocaine 1% 20ml Vial) 20 ml 1X ONCE INJ Last administered on 11/25/20at 15:23; Start 11/25/20 at 15:15; Stop 11/25/20 at 15:41; Status DC Ketorolac Tromethamine (Toradol 15mg Vial) 15 mg 1X ONCE IVP Last administered on 11/25/20at 15:24; Start 11/25/20 at 15:15; Stop 11/25/20 at 15:16; Status DC Vancomycin HCl 1.75 gm/Sodium Chloride 500 ml @ 250 mls/hr 1X ONCE IV ; Start 11/25/20 at 15:30; Stop 11/25/20 at 18:42; Status DC Lidocaine HCl (Lidocaine 1% 20ml Vial) 20 ml STK-MED ONCE .ROUTE ; Start 1 01/26/20 at 15:15; Stop 11/25/20 at 15:16; Status DC Fentanyl Citrate (Fentanyl 2ml Vial) 100 mcg STK-MED ONCE .ROUTE ; Start 11/25/20 at 15:15; Stop 11/25/20 at 15:16; Status DC Azithromycin 250 ml @ 250 mls/hr 1X ONCE IV Last administered on 11/25/20at 15:48; Start 11/25/20 at 15:30; Stop 11/25/20 at 16:29; Status DC Metronidazole 100 ml @ 100 mls/hr 1X ONCE IV ; Start 11/25/20 at 16:00; Stop 11/25/20 at 18:42; Status DC Iohexol (Omnipaque 350 Mg/ml) 100 ml 1X ONCE IV Last administered on 11/25/20at 16:41; Start 11/25/20 at 16:30; Stop 11/25/20 at 16:31; Status DC Info (CONTRAST GIVEN -- Rx MONITORING) 1 each PRN DAILY PRN MC SEE COMMENTS; Start 11/25/20 at 16:45; Stop 11/27/20 at 16:44 Sennosides (Senna) 17.2 mg PRN BID PRN PO CONSTIPATION; Start 11/25/20 at 17:00 Docusate Sodium (Colace) 100 mg PRN DAILY PRN PO HARD STOOLS; Start 11/25/20 at 17:00 Ondansetron HCl (Zofran) 4 mg PRN Q6HRS PRN IVP NAUSEA/VOMITING Last administered on 11/27/20at 02:06; Start 11/25/20 at 17:00 Dextrose (Dextrose 50%-Water Syringe) 12.5 gm PRN Q15MIN PRN IV SEE COMMENTS; Start 11/25/20 at 17:00 Acetaminophen (Tylenol) 650 mg PRN Q4HRS PRN PO TEMP OVER 100.4F OR MILD PAIN Last administered on 11/26/20at 17:21; Start 11/25/20 at 17:00 Morphine Sulfate (Morphine Sulfate) 1 mg PRN Q1HR PRN IV PAIN - SEE COMMENTS Last administered on 11/26/20at 08:33; Start 11/25/20 at 17:00 Morphine Sulfate (Morphine Sulfate) 2 mg PRN Q2HR PRN IV SEVERE PAIN 7-10; Start 11/25/20 at 04:00; Stop 11/26/20 at 03:59; Status DC Vancomycin HCl (Vanco Per Pharmacy) 1 each PRN DAILY PRN MC SEE COMMENTS Last administered on 11/26/20at 21:22; Start 11/25/20 at 18:45 Piperacillin Sod/ Tazobactam Sod (Zosyn Per Pharmacy) 1 each PRN DAILY PRN MC SEE COMMENTS; Start 11/25/20 at 18:45 Vancomycin HCl 1.75 gm/Sodium Chloride 500 ml @ 250 mls/hr 1X ONCE IV Last administered on 11/25/20at 19:25; Start 11/25/20 at 19:00; Stop 11/25/20 at 20:59; Status DC Piperacillin Sod/ Tazobactam Sod 4.5 gm/Sodium Chloride 100 ml @ 200 mls/hr Q6HRS IV Last administered on 11/27/20at 06:01; Start 11/25/20 at 19:00 Vancomycin HCl 1 gm/Sodium Chloride 250 ml @ 250 mls/hr Q8H IV Last administered on 11/27/20at 03:30; Start 11/26/20 at 03:30 Vancomycin HCl (Vancomycin Trough Level) 1 each 1X ONCE MC ; Start 11/26/20 at 19:00; Stop 11/26/20 at 19:01; Status DC Cetirizine HCl (ZyrTEC) 10 mg DAILY PO Last administered on 11/26/20at 08:16; Start 11/26/20 at 09:00 Ethambutol HCl (Myambutol) 1,600 mg QMWF PO Last administered on 11/26/20at 16:22; Start 11/26/20 at 16:00 Rifampin (Rifadin) 600 mg QTUTHSA PO ; Start 11/27/20 at 16:00 Azithromycin (Zithromax) 500 mg QTUTHSA PO ; Start 11/27/20 at 16:00 Famotidine (Pepcid) 20 mg PRN BID PO ; Start 11/25/20 at 22:45; Stop 11/25/20 at 22:43; Status DC Famotidine (Pepcid) 20 mg PRN BID PRN PO INDIGESTION Last administered on 11/25/20at 22:54; Start 11/25/20 at 22:45 Albuterol/ Ipratropium (Combivent Respimat 20-100 Mcg) 2 puff PRN Q6HRS PRN INH SHORTNESS OF BREATH Last administered on 11/26/20at 08:16; Start 11/25/20 at 23:00 Nicotine (Nicoderm Cq 21mg) 1 patch DAILY TD ; Start 11/26/20 at 19:15 Pantoprazole Sodium (Protonix) 40 mg BIDAC PO ; Start 11/26/20 at 19:15 Vancomycin HCl (Vancomycin Trough Level) 1 each 1X ONCE MC ; Start 11/27/20 at 11:00; Stop 11/27/20 at 11:01 Active Scripts Active Reported Albuterol Sulfate Neb Soln (Albuterol Sulfate) 1.25 Mg/3 Ml Vial.neb 1.25 Mg NEB PRN TID PRN Rifampin 300 Mg Capsule 2 Cap PO QTUTHSA Ethambutol Hcl 400 Mg Tablet 4 Tab PO QMWF Cetirizine Hcl 10 Mg Tablet 1 Tab PO DAILY Symbicort 160-4.5 Mcg Inhaler (Budesonide/Formoterol Fumarate) 10.2 Gm Hfa.aer.ad 2 Puff IH BID Azithromycin Tablet (Azithromycin) 500 Mg Tablet 1 Tab PO QTUTHSA Vitals/I & O Vital Sign - Last 24 Hours 11/26/20 11/26/20 11/26/20 11/26/20 08:33 09:03 10:59 14:33 Temp 98.1 99.2 98.1 99.2 Pulse 103 108 Resp 20 18 18 18 B/P (MAP) 119/78 (92) 118/66 (83) Pulse Ox 99 100 98 O2 Delivery Nasal Cannula Nasal Cannula Nasal Cannula Room Air O2 Flow Rate 2.0 2.0 2.0 12/30/20 12/30/20 12/30/20 12/31/20 19:59 20:00 22:44 03:59 Temp 98.8 97.8 99.6 98.8 97.8 99.6 Pulse 103 101 102 Resp 18 18 16 B/P (MAP) 95/61 (72) 100/64 (76) 101/64 (76) Pulse Ox 100 98 100 O2 Delivery Nasal Cannula Nasal Cannula Room Air Nasal Cannula O2 Flow Rate 2.0 2.0 1.5 11/27/20 06:11 Temp 97.2 97.2 Pulse 112 Resp 26 B/P (MAP) 104/66 (79) Pulse Ox 96 O2 Delivery Nasal Cannula O2 Flow Rate 2.0 Intake and Output 11/26/20 11/26/20 11/27/20 15:00 23:00 07:00 Intake Total 800 ml 1300 ml Output Total 1150 ml 1100 ml Balance 800 ml 150 ml -1100 ml Justicifation of Admission Dx: Justifications for Admission: Justification of Admission Dx: Yes CHF: Cardiac Arrhythmias Respiratory Failure: Mechanical Ventilation CELIA GRANT MD Nov 27, 2020 08:21
[2020-11-27] MEDS: NICOTINE 21MG PATCH. TD SCH (08:25)
[2020-11-27] MEDS: CETIRIZINE HCL 10 MG TABLET. PO SCH (08:25)
[2020-11-27] MEDS: PANTOPRAZOLE 40 MG TABLET.DR. PO SCH ×2 (08:25→16:35)
[2020-11-27 09:18] LABS: BASO % 0 % (0-3); EOS # 0.1 x10^3/uL (0.0-0.7); EOS % 1 % (0-3); HEMATOCRIT 39.3 % (39.0-53.0); HEMOGLOBIN 13.2 g/dL (13.0-17.5); LYMPH # 1.1 x10^3/uL (1.0-4.8); LYMPH % 12 % (24-48); MEAN CORPUSCULAR HEMOGLOBIN 33 pg (25-35); MEAN CORPUSCULAR HGB CONC 34 g/dL (31-37); MEAN CORPUSCULAR VOLUME 98 fL (79-100); MONO # 0.9 x10^3/uL (0.0-1.1); MONO % 10 % (0-9); NEUT # 6.8 x10^3/uL (1.8-7.7); NEUT % 77 % (31-73); PLATELET COUNT 394 x10^3/uL (140-400); RED CELL DISTRIBUTION WIDTH 12.9 % (11.5-14.5); WHITE BLOOD COUNT 8.9 x10^3/uL (4.0-11.0)
[2020-11-27 09:39] LABS: CREATININE 0.7 mg/dL (0.7-1.3); GFR 115.8
--- NOTE | 2020-11-27 10:29 | RAD ---
XR CHEST 1V History: Reason: 244 - pna / Spl. Instructions: / History: Comparison: November 25, 2020 Findings: Decreased left pneumothorax. Slight retraction of left chest tube. Decreased left upper lung masslike consolidation. Additional multifocal pulmonary opacities bilaterally, similar compared to prior. No pleural effusion. Unchanged heart size. Prior granulomatous disease within the chest. Impression: 1. Decreased left pneumothorax. Slight retraction of left chest tube. 2. Decreased left upper lung masslike consolidation. 3. Additional multifocal opacities, unchanged. Electronically signed by: Kevin Conrad DO (11/27/2020 10:26 AM) [id number]
--- NOTE | 2020-11-27 10:46 | PDOC ---
Infectious Disease Note Vital Signs: Vital Signs Vital Signs Date Time Temp Pulse Resp B/P (MAP) Pulse Ox O2 Delivery O2 Flow Rate FiO2 11/27/20 08:00 Nasal Cannula 2.0 11/27/20 06:11 97.2 112 26 104/66 (79) 96 97.2 Physical Exam: PHYSICAL EXAM Medications: Inpatient Meds: Current Medications Medications (Trade) Dose Ordered Sig/Brianda Start Time Stop Time Status Last Admin Dose Admin Acetaminophen (Tylenol) 650 mg PRN Q4HRS PRN 11/25/20 17:00 11/26/20 17:21 650 MG Albuterol/ Ipratropium (Combivent Respimat 20-100 Mcg) 2 puff PRN Q6HRS PRN 11/25/20 23:00 11/26/20 08:16 2 PUFF Albuterol/ Ipratropium (Duoneb) 3 ml 1X ONCE 11/25/20 15:00 11/25/20 15:11 DC 11/25/20 17:07 3 ML Azithromycin (Zithromax) 500 mg QTUTHSA 11/27/20 16:00 Cetirizine HCl (ZyrTEC) 10 mg DAILY 11/26/20 09:00 11/27/20 08:25 10 MG Dexamethasone Sodium Phosphate (Decadron) 10 mg 1X ONCE 11/25/20 15:00 11/25/20 15:11 DC 11/25/20 15:22 10 MG Dextrose (Dextrose 50%-Water Syringe) 12.5 gm PRN Q15MIN PRN 11/25/20 17:00 Docusate Sodium (Colace) 100 mg PRN DAILY PRN 11/25/20 17:00 Ethambutol HCl (Myambutol) 1,600 mg QMWF 11/26/20 16:00 11/26/20 16:22 1,600 MG Famotidine (Pepcid) 20 mg PRN BID PRN 11/25/20 22:45 11/25/20 22:54 20 MG Fentanyl Citrate (Fentanyl 2ml Vial) 100 mcg STK-MED ONCE 11/25/20 15:15 11/25/20 15:16 DC Info (CONTRAST GIVEN -- Rx MONITORING) 1 each PRN DAILY PRN 11/25/20 16:45 11/27/20 16:44 Iohexol (Omnipaque 350 Mg/ml) 100 ml 1X ONCE 11/25/20 16:30 11/25/20 16:31 DC 11/25/20 16:41 100 ML Ketorolac Tromethamine (Toradol 15mg Vial) 15 mg 1X ONCE 11/25/20 15:15 11/25/20 15:16 DC 11/25/20 15:24 15 MG Lidocaine HCl (Lidocaine 1% 20ml Vial) 20 ml STK-MED ONCE 11/25/20 15:15 11/25/20 15:16 DC Metronidazole 100 ml @ 100 mls/hr 1X ONCE 11/25/20 16:00 11/25/20 18:42 DC Morphine Sulfate (Morphine Sulfate) 2 mg PRN Q2HR PRN 11/25/20 04:00 11/26/20 03:59 DC Nicotine (Nicoderm Cq 21mg) 1 patch DAILY 11/26/20 19:15 11/27/20 08:25 1 PATCH Ondansetron HCl (Zofran) 4 mg PRN Q6HRS PRN 11/25/20 17:00 11/27/20 02:06 4 MG Pantoprazole Sodium (Protonix) 40 mg BIDAC 11/26/20 19:15 11/27/20 08:25 40 MG Piperacillin Sod/ Tazobactam Sod (Zosyn Per Pharmacy) 1 each PRN DAILY PRN 11/25/20 18:45 Piperacillin Sod/ Tazobactam Sod 4.5 gm/Sodium Chloride 100 ml @ 200 mls/hr Q6HRS 11/25/20 19:00 11/27/20 06:01 200 MLS/HR Rifampin (Rifadin) 600 mg QTUTHSA 11/27/20 16:00 Sennosides (Senna) 17.2 mg PRN BID PRN 11/25/20 17:00 Sodium Chloride 1,000 ml @ 1,000 mls/hr 1X ONCE 11/25/20 14:45 11/25/20 15:44 DC 11/25/20 15:49 1,000 MLS/HR Vancomycin HCl (Vanco Per Pharmacy) 1 each PRN DAILY PRN 11/25/20 18:45 11/26/20 21:22 1 EACH Vancomycin HCl (Vancomycin Trough Level) 1 each 1X ONCE 11/27/20 11:00 11/27/20 11:01 Vancomycin HCl 1.75 gm/Sodium Chloride 500 ml @ 250 mls/hr 1X ONCE 11/25/20 19:00 11/25/20 20:59 DC 11/25/20 19:25 250 MLS/HR Vancomycin HCl 1 gm/Sodium Chloride 250 ml @ 250 mls/hr Q8H 11/26/20 03:30 11/27/20 03:30 250 MLS/HR Labs: Lab Laboratory Tests Test 11/26/20 19:23 11/27/20 08:50 Vancomycin Level Trough 24.7 mcg/mL (10.0-20.0) Vancomycin Last Dose Date 11/26/20 Vancomycin Last Dose Time 1130 White Blood Count 8.9 x10^3/uL (4.0-11.0) Red Blood Count 4.00 x10^6/uL (4.30-5.70) Hemoglobin 13.2 g/dL (13.0-17.5) Hematocrit 39.3 % (39.0-53.0) Mean Corpuscular Volume 98 fL (79-100) Mean Corpuscular Hemoglobin 33 pg (25-35) Mean Corpuscular Hemoglobin Concent 34 g/dL (31-37) Red Cell Distribution Width 12.9 % (11.5-14.5) Platelet Count 394 x10^3/uL (140-400) Neutrophils (%) (Auto) 77 % (31-73) Lymphocytes (%) (Auto) 12 % (24-48) Monocytes (%) (Auto) 10 % (0-9) Eosinophils (%) (Auto) 1 % (0-3) Basophils (%) (Auto) 0 % (0-3) Neutrophils # (Auto) 6.8 x10^3/uL (1.8-7.7) Lymphocytes # (Auto) 1.1 x10^3/uL (1.0-4.8) Monocytes # (Auto) 0.9 x10^3/uL (0.0-1.1) Eosinophils # (Auto) 0.1 x10^3/uL (0.0-0.7) Basophils # (Auto) 0.0 x10^3/uL (0.0-0.2) Sodium Level 138 mmol/L (136-145) Potassium Level 4.0 mmol/L (3.5-5.1) Chloride Level 101 mmol/L (98-107) Carbon Dioxide Level 31 mmol/L (21-32) Anion Gap 6 (6-14) Blood Urea Nitrogen 11 mg/dL (8-26) Creatinine 0.7 mg/dL (0.7-1.3) Estimated GFR (Cockcroft-Gault) 115.8 Glucose Level 105 mg/dL (70-99) Calcium Level 9.0 mg/dL (8.5-10.1) Objective: Assessment: Patient seen and examined Plan: Plan of Care [id number] Thank you TORIBIO BONE MD Nov 27, 2020 10:46
[2020-11-27 11:00] VITALS: BP 106/69
--- NOTE | 2020-11-27 12:18 | PDOC ---
PULMONARY PROGRESS NOTES DATE: 11/27/20 TIME: 12:16 Subjective Patient is currently on 2 L nasal cannula Reports cough with yellow and brown color today No increased SOA No other concerns from nursing Vitals Vital Signs Date Time Temp Pulse Resp B/P (MAP) Pulse Ox O2 Delivery O2 Flow Rate FiO2 11/27/20 11:00 98.8 105 24 106/69 (81) 96 Nasal Cannula 2.0 98.8 Comments Patient seen during ID pandemic, visual exam performed ROS: No Nausea, No Chest Pain, No Abdominal Pain, No Increase Cough General: Alert Lungs: Crackles Cardiovascular: S1, S2 Abdomen: Soft, Non-tender Neuro Exam: Alert, Oriented Extremities: No Edema Skin: Warm, Dry Labs Laboratory Tests Test 11/25/20 15:06 11/25/20 15:52 11/25/20 17:05 11/26/20 08:57 White Blood Count 8.2 x10^3/uL (4.0-11.0) 8.8 x10^3/uL (4.0-11.0) Red Blood Count 4.11 x10^6/uL (4.30-5.70) 4.15 x10^6/uL (4.30-5.70) Hemoglobin 13.9 g/dL (13.0-17.5) 14.1 g/dL (13.0-17.5) Hematocrit 39.7 % (39.0-53.0) 40.8 % (39.0-53.0) Mean Corpuscular Volume 97 fL (79-100) 98 fL (79-100) Mean Corpuscular Hemoglobin 34 pg (25-35) 34 pg (25-35) Mean Corpuscular Hemoglobin Concent 35 g/dL (31-37) 35 g/dL (31-37) Red Cell Distribution Width 12.8 % (11.5-14.5) 13.1 % (11.5-14.5) Platelet Count 345 x10^3/uL (140-400) 363 x10^3/uL (140-400) Neutrophils (%) (Auto) 84 % (31-73) 80 % (31-73) Lymphocytes (%) (Auto) 7 % (24-48) 13 % (24-48) Monocytes (%) (Auto) 10 % (0-9) 7 % (0-9) Eosinophils (%) (Auto) 0 % (0-3) 0 % (0-3) Basophils (%) (Auto) 0 % (0-3) 0 % (0-3) Neutrophils # (Auto) 6.9 x10^3/uL (1.8-7.7) 7.0 x10^3/uL (1.8-7.7) Lymphocytes # (Auto) 0.5 x10^3/uL (1.0-4.8) 1.1 x10^3/uL (1.0-4.8) Monocytes # (Auto) 0.8 x10^3/uL (0.0-1.1) 0.6 x10^3/uL (0.0-1.1) Eosinophils # (Auto) 0.0 x10^3/uL (0.0-0.7) 0.0 x10^3/uL (0.0-0.7) Basophils # (Auto) 0.0 x10^3/uL (0.0-0.2) 0.0 x10^3/uL (0.0-0.2) D-Dimer (Jennifer) 1.67 ug/mlFEU (0.00-0.50) Sodium Level 136 mmol/L (136-145) 138 mmol/L (136-145) Potassium Level 4.1 mmol/L (3.5-5.1) 4.2 mmol/L (3.5-5.1) Chloride Level 99 mmol/L (98-107) 101 mmol/L (98-107) Carbon Dioxide Level 25 mmol/L (21-32) 28 mmol/L (21-32) Anion Gap 12 (6-14) 9 (6-14) Blood Urea Nitrogen 14 mg/dL (8-26) 13 mg/dL (8-26) Creatinine 0.6 mg/dL (0.7-1.3) 0.8 mg/dL (0.7-1.3) Estimated GFR (Cockcroft-Gault) 138.4 99.3 BUN/Creatinine Ratio 23 (6-20) Glucose Level 123 mg/dL (70-99) 122 mg/dL (70-99) Lactic Acid Level 1.3 mmol/L (0.4-2.0) Calcium Level 8.8 mg/dL (8.5-10.1) 9.4 mg/dL (8.5-10.1) Total Bilirubin 1.0 mg/dL (0.2-1.0) Aspartate Amino Transf (AST/SGOT) 31 U/L (15-37) Alanine Aminotransferase (ALT/SGPT) 43 U/L (16-63) Alkaline Phosphatase 49 U/L (46-116) Creatine Kinase 31 U/L (39-308) Troponin I Quantitative < 0.017 ng/mL (0.000-0.055) MU-Wwu-O-Type Natriuretic Peptide 266 pg/mL (0-124) Total Protein 6.2 g/dL (6.4-8.2) Albumin 2.4 g/dL (3.4-5.0) Albumin/Globulin Ratio 0.6 (1.0-1.7) Influenza Type A Antigen Negative (NEGATIVE) Influenza Type B Antigen Negative (NEGATIVE) O2 Saturation 97 % (92-99) Arterial Blood pH 7.34 (7.35-7.45) Arterial Blood pCO2 at Patient Temp 38 mmHg (35-46) Arterial Blood pO2 at Patient Temp 112 mmHg (75-108) Arterial Blood HCO3 20 mmol/L (21-28) Arterial Blood Base Excess -5 mmol/L (-3-3) Oxyhemoglobin 96.7 % Methemoglobin 0.4 % (0.0-1.9) Carbon Monoxide, Quantitative 0.3 % (0.0-1.9) FiO2 2l nc Phosphorus Level 3.1 mg/dL (2.6-4.7) Magnesium Level 2.2 mg/dL (1.8-2.4) Test 11/26/20 19:23 11/27/20 08:50 Vancomycin Level Trough 24.7 mcg/mL (10.0-20.0) Vancomycin Last Dose Date 11/26/20 Vancomycin Last Dose Time 1130 White Blood Count 8.9 x10^3/uL (4.0-11.0) Red Blood Count 4.00 x10^6/uL (4.30-5.70) Hemoglobin 13.2 g/dL (13.0-17.5) Hematocrit 39.3 % (39.0-53.0) Mean Corpuscular Volume 98 fL (79-100) Mean Corpuscular Hemoglobin 33 pg (25-35) Mean Corpuscular Hemoglobin Concent 34 g/dL (31-37) Red Cell Distribution Width 12.9 % (11.5-14.5) Platelet Count 394 x10^3/uL (140-400) Neutrophils (%) (Auto) 77 % (31-73) Lymphocytes (%) (Auto) 12 % (24-48) Monocytes (%) (Auto) 10 % (0-9) Eosinophils (%) (Auto) 1 % (0-3) Basophils (%) (Auto) 0 % (0-3) Neutrophils # (Auto) 6.8 x10^3/uL (1.8-7.7) Lymphocytes # (Auto) 1.1 x10^3/uL (1.0-4.8) Monocytes # (Auto) 0.9 x10^3/uL (0.0-1.1) Eosinophils # (Auto) 0.1 x10^3/uL (0.0-0.7) Basophils # (Auto) 0.0 x10^3/uL (0.0-0.2) Sodium Level 138 mmol/L (136-145) Potassium Level 4.0 mmol/L (3.5-5.1) Chloride Level 101 mmol/L (98-107) Carbon Dioxide Level 31 mmol/L (21-32) Anion Gap 6 (6-14) Blood Urea Nitrogen 11 mg/dL (8-26) Creatinine 0.7 mg/dL (0.7-1.3) Estimated GFR (Cockcroft-Gault) 115.8 Glucose Level 105 mg/dL (70-99) Calcium Level 9.0 mg/dL (8.5-10.1) Laboratory Tests Test 11/26/20 19:23 11/27/20 08:50 Vancomycin Level Trough 24.7 mcg/mL (10.0-20.0) Vancomycin Last Dose Date 11/26/20 Vancomycin Last Dose Time 1130 White Blood Count 8.9 x10^3/uL (4.0-11.0) Red Blood Count 4.00 x10^6/uL (4.30-5.70) Hemoglobin 13.2 g/dL (13.0-17.5) Hematocrit 39.3 % (39.0-53.0) Mean Corpuscular Volume 98 fL (79-100) Mean Corpuscular Hemoglobin 33 pg (25-35) Mean Corpuscular Hemoglobin Concent 34 g/dL (31-37) Red Cell Distribution Width 12.9 % (11.5-14.5) Platelet Count 394 x10^3/uL (140-400) Neutrophils (%) (Auto) 77 % (31-73) Lymphocytes (%) (Auto) 12 % (24-48) Monocytes (%) (Auto) 10 % (0-9) Eosinophils (%) (Auto) 1 % (0-3) Basophils (%) (Auto) 0 % (0-3) Neutrophils # (Auto) 6.8 x10^3/uL (1.8-7.7) Lymphocytes # (Auto) 1.1 x10^3/uL (1.0-4.8) Monocytes # (Auto) 0.9 x10^3/uL (0.0-1.1) Eosinophils # (Auto) 0.1 x10^3/uL (0.0-0.7) Basophils # (Auto) 0.0 x10^3/uL (0.0-0.2) Sodium Level 138 mmol/L (136-145) Potassium Level 4.0 mmol/L (3.5-5.1) Chloride Level 101 mmol/L (98-107) Carbon Dioxide Level 31 mmol/L (21-32) Anion Gap 6 (6-14) Blood Urea Nitrogen 11 mg/dL (8-26) Creatinine 0.7 mg/dL (0.7-1.3) Estimated GFR (Cockcroft-Gault) 115.8 Glucose Level 105 mg/dL (70-99) Calcium Level 9.0 mg/dL (8.5-10.1) Medications Active Scripts Medications Dose Route/Sig Max Daily Dose Days Date Category Albuterol Sulfate Neb Soln (Albuterol Sulfate) 1.25 Mg/3 Ml Vial.neb 1.25 Mg NEB PRN TID PRN 11/25/20 Reported Rifampin 300 Mg Capsule 2 Cap PO QTUTHSA 11/25/20 Reported Ethambutol Hcl 400 Mg Tablet 4 Tab PO QMWF 11/25/20 Reported Cetirizine Hcl 10 Mg Tablet 1 Tab PO DAILY 09/05/19 Reported Symbicort 160-4.5 Mcg Inhaler (Budesonide/Formoterol Fumarate) 10.2 Gm Hfa.aer.ad 2 Puff IH BID 06/20/19 Reported Azithromycin Tablet (Azithromycin) 500 Mg Tablet 1 Tab PO QTUTHSA 11/25/20 Reported Comments CTA chest IMPRESSION: 1. No pulmonary embolus identified within the main, lobar or segmental pulmonary arteries. 2. When compared to the prior exam in May there has been progressive cons olidation in the right upper lobe, left upper lobe and left lower lobe. This may represent worsening infectious/inflammatory process. Underlying malignancy is difficult to exclude. 3. The cavitary lesion seen in the left lung have increased in size with a air- fluid level noted within the left upper lobe cavity. CXR 11/27 Impression: 1. Decreased left pneumothorax. Slight retraction of left chest tube. 2. Decreased left upper lung masslike consolidation. 3. Additional multifocal opacities, unchanged. Impression . IMPRESSION: 1. Acute hypoxemic respiratory failure. 2. Abnormal chest x-ray revealing increasing left upper lobe mass. 3. History of Mycobacterium avium complex, status post bronchoscopy on 11/07 with continue identification of MAC despite 12 months treatment with triple antibiotics. 4. Chronic obstructive pulmonary disease. 5. Tobacco dependent. 6. History of alcoholism. 7. Spontaneous pneumothorax, suspect from disease along with possibly cancer. Plan . PLAN: Continue supplemental oxygen to keep oxygen saturations greater than 92%, remains on 2 liters N/C Continue left chest tube continue suction, no leak on Chest tube today continue with daily chest x-rays Influenza negative Await COVID-19 results, continue isolation precautions CT of chest reviewed: Negative for pulmonary embolism, ongoing/worsening infectious/inflammatory process, cavitary lesion in the left lung increased in size with air-fluid level noted with the left upper lobe cavity Continue bronchodilators Continue empiric antibiotics per ID --- follow cultures----Gram positive rods, Gram positive cocci on resp. culture Consult infectious disease DVT/GI prophylaxis Discussed with HAILEE BORDEN MD Nov 27, 2020 12:18
--- NOTE | 2020-11-27 14:18 | NUR ---
SS following up with discharge planning. SS reviewed pt chart and discussed with pt RN. Pt is currently requiring oxygen. Pt on IV Zosyn. Chest tube in place. COVID19 test pending. PT/OT ordered. SS will continue to follow for discharge planning.
[2020-11-27 15:00] VITALS: BP 127/75
[2020-11-27] MEDS: AZITHROMYCIN 250 MG TABLET. PO SCH (16:35)
[2020-11-27] MEDS: riFAMpin 300 MG CAPSULE. PO SCH (16:35)
[2020-11-27 19:54] VITALS: BP 105/75
[2020-11-27 22:09] VITALS: BP 119/77
--- NOTE | 2020-11-27 22:09 | CONS ---
DATE OF CONSULTATION: 11/27/2020 REFERRING PHYSICIAN: Dr. Dowd. REASON FOR CONSULTATION: History of Mycobacterium avium complex with fevers. HISTORY OF PRESENT ILLNESS: A 60-year-old male with history of Mycobacterium avium complex pulmonary infection who has been on treatment with rifampin, azithromycin and ethambutol for more than 12 months, presented to the ER on 11/25/2020 with complaints of shortness of breath with chronic bronchitis, worsening over the past week. The patient also was having constipation. He was tested negative for COVID 1 week ago.No sick contact. He was febrile at 101.8. White count was 8.2 and platelets of 345. Normal lactate. Normal creatinine. Normal LFTs. BNP of 266. Troponin normal. Influenza screen was negative.CTA was done. Negative for PE.Bilateral extensive infiltrates. The patient underwent chest tube placement with improvement of pneumothorax. Cavitary lesion in the left lung was known to be increased in size with air fluid level noted with left upper lobe cavity. The patient currently remains on azithromycin, rifampin, ethambutol. Repeat chest x-ray shows decreased left pneumothorax, slight retraction of the left chest tube, decreased left upper lung mass consolidation, additional multifocal pulmonary opacities bilaterally, similar compared to prior. No pleural effusion. Unchanged heart size. Prior granulomatous disease within the chest. Blood cultures from 11/25 are negative. Sputum culture shows mixed upper respiratory elliot. COVID-19 was done. Currently pt is on IV vancomycin and Zosyn. His MAC therapy has been continued. Per discussion with DR Campos, susceptibilities for MAC has been requested. Today, the patient feels a little better. His fever pattern is improving. Cough and shortness of breath has improved somewhat. He denies any headache, sore throat, nausea, vomiting, diarrhea or abdominal pain. PAST MEDICAL HISTORY: COPD, MAC disease, lung mass status post biopsy and multiple bronchoscopy as above. Numerous cultures positive in the past for Mycobacterium avium complex and Heena glabrata, Penicillium species, nocardia, Actinomyces, Streptococcus pneumoniae, The patient had a history of Mycobacterium avium complex pulmonary infection for which he has been on rifampin, azithromycin and ethambutol as above since 08/2019. He had stopped taking his regimen for a couple of months last year as he got tired of taking the medications. The patient has history of recurrent pulmonary infections with Strep pneumo in 07/2019, also had Penicillium and Mycobacterium avium complex on cultures. The patient had subsequent cultures done in 08/2019 at which time he had Mycobacterium avium positive, Actinomyces, Nocardia by sequencing and Heena glabrata. SOCIAL HISTORY: Positive for smoking. History of alcoholism. Lives with his . ALLERGIES: No known drug allergies. CURRENT MEDICATIONS: As per medication record. REVIEW OF SYSTEMS: Weight loss about 15-20 pounds in the last couple of months. Otherwise, negative. PHYSICAL EXAMINATION: VITAL SIGNS: Temperature 98.8, pulse 105, respiratory rate 24, blood pressure 106/69, oxygen saturation 96% on 2 liters by nasal cannula. GENERAL: Alert, oriented x 3 male sitting upright in bed, in no acute distress. HEENT: Normocephalic, atraumatic, anicteric, edentulous. NECK: Supple, no JVD. LUNGS: Decreased breath sounds, bilateral crackles. Left chest tube present. ABDOMEN: Soft, bowel sounds present, nontender, nondistended. EXTREMITIES: No edema, no cyanosis. DERMATOLOGIC: Warm and dry. No generalized rash. NEUROLOGIC: Alert and oriented x 3, grossly nonfocal. PSYCHIATRIC: Cooperative, appropriate mood and affect. LABORATORY DATA: WBC 8.9, hemoglobin 13.2, hematocrit 39.3, and platelets 394. Sodium 138, potassium 4.0, chloride 101, bicarbonate 31, BUN 11, creatinine 0.7, and glucose 105. Vancomycin trough 24.7. UA, small leukocyte esterase and wbc's rare. Influenza screen negative. IMAGING: Chest CT, no pulmonary embolus when compared to prior exam and there is progressive consolidation in left upper lobe and left lower lobe. There might be worsening infectious or inflammatory process, underlying malignancy is difficult to exclude. The cavitary lesions seen in the left lung has increased in size with air fluid level noted within the left upper lobe cavity. MICROBIOLOGY: 1. Blood culture 11/25 negative. Sputum culture 11/25/2020 as above. Bronchoscopy 11/07/2020, MAC positive, susceptibility is pending per pulmomary team. 2. 06/2020, MAC positive. 3. 08/2019, positive for Heena glabrata, nocardia, Actinomyces and MAC. 4. 07/2019, positive for and penicillium species. 5. Pathology report from 06/2020 reviewed. IMPRESSION: Very complicated patient with recurrent pulmonoary infections with underlying COPD Smoking and ETOH dependence. 1. Fever, source Pulmonary. 2. Acute hypoxic respiratory failure. 3. Abnormal CT with worsening lung mass and air fluid level likely lung abscess. 4. Left loculated fluid collection concern for empyema, status post chest tube placement 11/25/2020. Cultures not available 5. COVID-19 PUI. 6. Elevated D-dimer. 7. Severe protein-calorie malnutrition. 8. Tobacco dependence. 9. Alcohol dependence. 10. Weight loss. 11. Spontaneous pneumothorax. 12. History of pulmonary Mycobacterium avium complex, treated with more than 12 months of treatment with rifampin, azithromycin, and ethambutol. 13. History of multiple cultures in the past with Mycobacterium avium complex positive numerous times,Nocardia, Actinomyces, penicillium, Heena glabrata. Streptococcus pneumoniae, susceptible to ceftriaxone and Levaquin RECOMMENDATIONS: The current presentation is likely not from his underlying Pulmonary MAC infection. Nocardiosis and Actinomyces can cause nonresolving lung infections with progression. Will start pt on Imipenem,doxycycline to cover Nocardia and Actinomyces. Continue MAC treatment pending susceptibility results at this time. Discontinue vancomycin due to high trough and Zosyn.. The patient has undergone spontaneous pneumothorax and empyema management per Pulmonary Influenza screen negative. Follow up COVID-19 test. Agree with pulmolnary team that Lung cancer is also in the differential. Follow up labs and cultures. Continue supportive care. Discussed with RN. Thank you DR Dowd for allowing me to participate in this patient's care. If you have any questions, do not hesitate to contact me. TORIBIO BONE MD DR: SHRUTHI/nas JOB#: [id number] / [id number] NAVARRO
[2020-11-28] VITALS (7 sets, daily range): BP systolic 103–130; BP diastolic 63–81
[2020-11-28] MEDS: PIPERACILLIN/TAZOBACTAM 4.5 GM in IV NORMAL SALINE 100ML 100 ML IV SCH (04:53)
--- NOTE | 2020-11-28 08:13 | RAD ---
XR CHEST 1V INDICATION: Reason: pna/ 244 / Spl. Instructions: / History: . COMPARISON STUDY: 11/27/2020. FINDINGS: Lungs: Normal lung volume. Stable patchy bilateral opacities. Pleura: No pleural effusion or pneumothorax. Heart and Mediastinum: Stable cardiomediastinal silhouette and great vessels. Bones and Soft Tissues: Stable regional skeleton and soft tissues. IMPRESSION: Stable patchy bilateral opacities. Electronically signed by: Zay Roy MD (11/28/2020 8:11 AM) [id number]
[2020-11-28] MEDS: CETIRIZINE HCL 10 MG TABLET. PO SCH (09:25)
[2020-11-28] MEDS: PANTOPRAZOLE 40 MG TABLET.DR. PO SCH ×2 (09:25→16:30)
[2020-11-28] MEDS: FAMOTIDINE 20 MG TABLET. PO PRN (09:25)
[2020-11-28] MEDS: NICOTINE 21MG PATCH. TD SCH (09:25)
[2020-11-28] MEDS: DOXYCYCLINE HYCLATE 100 MG TABLET PO SCH ×2 (09:26→21:12)
--- NOTE | 2020-11-28 10:38 | PDOC ---
PROGRESS NOTES Date of Service: DATE: 11/28/20 TIME: 10:37 Chief Complaint Chief Complaint Images: Images CXR Impression: 1. Small left lateral loculated pneumothorax. 2. Increased left upper lung masslike consolidation with additional consolidations bilaterally, may represent pneumonia although malignancy is possible. Recommend CT to further evaluate. Also recommend comparison with prior biopsy results. 3. Small left pleural effusion. CXR Impression: 1. Chest tube placement with near complete evaluation of pneumothorax. There still some apical pneumothorax identified. There is persistent biapical thickening of the lungs with a stable left upper lobe mass. Pending chest CTA Assessment/Plan Assessment/Plan Acute respiratory distress due to left pneumothorax and CAP Left loculated pneumothorax concern for empyema status post chest tube placement 11/25/2020 Investigation for COVID-19 infection Elevated D-dimer Severe protein malnutrition Tobacco and alcohol misuse History of Mycobacterium avium complex, status post bronchoscopy on 11/07 with continue identification of MAC despite 12 months treatment with triple antibiotics. Chronic obstructive pulmonary disease. Tobacco dependent. History of alcoholism. Spontaneous pneumothorax, ETIOLOGY possibly cancer. Continue empiric antibiotics per ID --- follow cultures----Gram positive rods, Gram positive cocci on resp. culture PT/OT Admit to medicine for further management Pulmonology consult for chest tube management Pending blood and sputum cultures Continue IV empiric antibiotics for pneumonia Lovenox for DVT prophylaxis Regular diet Full code Discussed with RN and SW Disposition inpatient management as above Surrogate decision maker is the start pt on Imipenem,doxycycline to cover Nocardia and Actinomyces. Continue MAC treatment pending susceptibility results at this time. Discontinue vancomycin due to high trough and Zosyn.. The cavitary lesion seen in the left lung have increased in size with a air- fluid level noted within the left upper lobe cavity. 39 min pt exam, chart review, > 50% of time spent with exam, chart review, pt care coordination Justifications for Admission Justifications for Admission Other Justification History of Present Illness History of Present Illness Chief Complaint: Chief Complain: SOB History of Present Illness: HPI: Patient is a 60-year-old male with past medical history of COPD, MAC infection in the past, recent bronchoscopy with Dr. Dowd on 11/11/2020 who presents with shortness of breath for the past week after getting the bronchoscopy. Patient follows with Dr. Dowd for the past 4 years patient has been on antibiotics for a year for MAC. Patient states also he does have productive cough. Denies fevers, chest pain, abdominal pain, diarrhea. ED course: Patient was found to have a pneumothorax loculated and the chest tube was placed in the ED 8 Ethiopian catheter. Minimal amount of fluid and air was produced. Patient has copious purulent sputum being produced. Past Medical/Surgical History: PMH/PSH: Past Medical History: COPD, MAC disease; left lung mass Past Surgical History: 11/11/20 bronchoscopy; biopsy of lung Allergies: Allergies: Coded Allergies: I S O L A T I O N *CONTACT* (Verified Allergy, Unknown, 09/05/19) Meropenum resistant-strep pneumoniae No Known Medication Allergies (Verified Allergy, Unknown, 09/05/19) Family History: Family History: Reviewed with no relevant findings Social History: Social History: Smoking Status: Current Every Day Smoker Additional Information: quit 2 weeks ago Alcohol Use: Sober Vitals Vitals Vital Signs Date Time Temp Pulse Resp B/P (MAP) Pulse Ox O2 Delivery O2 Flow Rate FiO2 11/28/20 07:00 99.1 104 16 115/73 (87) 97 Nasal Cannula 2.0 99.1 Physical Exam Physical Exam General: Alert, Oriented X3, Cooperative, No acute distress Lungs: Crackles Extremities: No cyanosis, No edema Labs LABS PATIENT: CHINO GODINEZ ACCOUNT: [id number] : 1960 LOCATION: [address] [place] [address] AGE: 60 SEX: M EXAM STATUS: ADM IN ORD. PHYSICIAN: TIRSO SANCHEZ DO REASON: sob w/known myco avium complex, elevatd d-dimer, r/o pe, malignancy? PROCEDURE: CT ANGIOGRAPHY CHEST Exam: CT of chest with contrast INDICATION: Shortness of breath, known MAC infection TECHNIQUE: Sequential axial images through the chest obtained following the administration 100 mL of Isovue-370 IV contrast. Sagittal and coronal reformatted images were reconstructed from the axial data and reviewed. 3-D reformatted images were reconstructed from the axial data and reviewed. Comparisons: Chest x-ray same day, CT chest 06/18/2020 FINDINGS: Utilized portions of the thyroid are unremarkable. No enlarged mediastinal lymph nodes are identified. Heart size is normal. Mild coronary artery calcifications. Thoracic aorta has a normal course and caliber. Pulmonary artery is not enlarged. No pulmonary embolus identified within the main, lobar or segmental pulmonary arteries. Airways are patent. There is a left-sided anterior pleural catheter with a trace left pneumothorax. Large cavity noted within the left upper lobe measuring approximately 8.8 x 4.2 cm with air-fluid level. Dense consolidative changes noted in the left upper lobe. There is a second smaller cavitary cavity in the left lower lobe measuring approximately 1.7 cm with surrounding dense consolidation. There is patchy areas of tree-in-bud nodularity and masslike consolidation in the right upper lobe with scattered areas of internal calcifications. No pleural effusion or thickening. Visualized upper abdomen is unremarkable. No suspicious osseous lesions or acute fractures. IMPRESSION: 1. No pulmonary embolus identified within the main, lobar or segmental pulmonary arteries. 2. When compared to the prior exam in May there has been progressive consolidation in the right upper lobe, left upper lobe and left lower lobe. This may represent worsening infectious/inflammatory process. Underlying malignancy is difficult to exclude. 3. The cavitary lesion seen in the left lung have increased in size with a air- fluid level noted within the left upper lobe cavity. Exposure: One or more of the following in the visualized dose reduction techniques were utilized for this examination: 1. Automated exposure control 2. Adjustment of the MA and/or KV according to patient size 3. Use of iterative of reconstructive technique Electronically signed by: Prabha Shen MD (11/25/2020 5:05 PM) [facility] DICTATED and SIGNED BY: PRABHA SHEN MD REASON: pna/ 244 PROCEDURE: CHEST AP ONLY XR CHEST 1V INDICATION: Reason: pna/ 244 / Spl. Instructions: / History: . COMPARISON STUDY: 11/27/2020. FINDINGS: Lungs: Normal lung volume. Stable patchy bilateral opacities. Pleura: No pleural effusion or pneumothorax. Heart and Mediastinum: Stable cardiomediastinal silhouette and great vessels. Bones and Soft Tissues: Stable regional skeleton and soft tissues. IMPRESSION: Stable patchy bilateral opacities. Electronically signed by: Valorie Jennings MD (11/28/2020 8:11 AM) [id number] DICTATED and SIGNED BY: VALORIE JENNINGS MD DATE: 11/28/20 [id number] Assessment and Plan Assessmemt and Plan Problems Medical Problems: (1) Multifocal pneumonia Status: Acute (2) Person under investigation for COVID-19 Status: Acute (3) Sepsis Status: Acute (4) Spontaneous pneumothorax Status: Acute Comment Review of Relevant I have reviewed the following items angelique (where applicable) has been applied. Labs Laboratory Tests Test 11/26/20 19:23 11/27/20 08:50 Vancomycin Level Trough 24.7 mcg/mL (10.0-20.0) Vancomycin Last Dose Date 11/26/20 Vancomycin Last Dose Time 1130 White Blood Count 8.9 x10^3/uL (4.0-11.0) Red Blood Count 4.00 x10^6/uL (4.30-5.70) Hemoglobin 13.2 g/dL (13.0-17.5) Hematocrit 39.3 % (39.0-53.0) Mean Corpuscular Volume 98 fL (79-100) Mean Corpuscular Hemoglobin 33 pg (25-35) Mean Corpuscular Hemoglobin Concent 34 g/dL (31-37) Red Cell Distribution Width 12.9 % (11.5-14.5) Platelet Count 394 x10^3/uL (140-400) Neutrophils (%) (Auto) 77 % (31-73) Lymphocytes (%) (Auto) 12 % (24-48) Monocytes (%) (Auto) 10 % (0-9) Eosinophils (%) (Auto) 1 % (0-3) Basophils (%) (Auto) 0 % (0-3) Neutrophils # (Auto) 6.8 x10^3/uL (1.8-7.7) Lymphocytes # (Auto) 1.1 x10^3/uL (1.0-4.8) Monocytes # (Auto) 0.9 x10^3/uL (0.0-1.1) Eosinophils # (Auto) 0.1 x10^3/uL (0.0-0.7) Basophils # (Auto) 0.0 x10^3/uL (0.0-0.2) Sodium Level 138 mmol/L (136-145) Potassium Level 4.0 mmol/L (3.5-5.1) Chloride Level 101 mmol/L (98-107) Carbon Dioxide Level 31 mmol/L (21-32) Anion Gap 6 (6-14) Blood Urea Nitrogen 11 mg/dL (8-26) Creatinine 0.7 mg/dL (0.7-1.3) Estimated GFR (Cockcroft-Gault) 115.8 Glucose Level 105 mg/dL (70-99) Calcium Level 9.0 mg/dL (8.5-10.1) Microbiology 11/25/20 Gram Stain Evaluation - Final, Complete 11/25/20 Respiratory Culture - Final, Complete 11/25/20 Blood Culture - Preliminary, Resulted NO GROWTH AFTER 2 DAYS Medications Current Medications Sodium Chloride 1,000 ml @ 1,000 mls/hr Q1H IV Last administered on 11/25/20at 15:27; Start 11/25/20 at 14:45; Stop 11/25/20 at 15:44; Status DC Sodium Chloride 1,000 ml @ 1,000 mls/hr 1X ONCE IV Last administered on 11/25/20at 15:49; Start 11/25/20 at 14:45; Stop 11/25/20 at 15:44; Status DC Vancomycin HCl (Vanco Per Pharmacy) 1 each PRN DAILY PRN MC SEE COMMENTS; Start 11/25/20 at 14:45; Stop 11/25/20 at 18:48; Status DC Piperacillin Sod/ Tazobactam Sod 4.5 gm/Sodium Chloride 100 ml @ 200 mls/hr 1X ONCE IV ; Start 11/25/20 at 14:45; Stop 11/25/20 at 18:42; Status DC Dexamethasone Sodium Phosphate (Decadron) 10 mg 1X ONCE IV Last administered on 11/25/20at 15:22; Start 11/25/20 at 15:00; Stop 11/25/20 at 15:11; Status DC Albuterol/ Ipratropium (Duoneb) 3 ml 1X ONCE NEB Last administered on 11/25/20at 17:07; Start 11/25/20 at 15:00; Stop 11/25/20 at 15:11; Status DC Fentanyl Citrate (Fentanyl 2ml Vial) 100 mcg 1X ONCE IVP Last administered on 11/25/20at 15:24; Start 11/25/20 at 15:15; Stop 11/25/20 at 15:41; Status DC Lidocaine HCl (Lidocaine 1% 20ml Vial) 20 ml 1X ONCE INJ Last administered on 11/25/20at 15:23; Start 11/25/20 at 15:15; Stop 11/25/20 at 15:41; Status DC Ketorolac Tromethamine (Toradol 15mg Vial) 15 mg 1X ONCE IVP Last administered on 11/25/20at 15:24; Start 11/25/20 at 15:15; Stop 11/25/20 at 15:16; Status DC Vancomycin HCl 1.75 gm/Sodium Chloride 500 ml @ 250 mls/hr 1X ONCE IV ; Start 11/25/20 at 15:30; Stop 11/25/20 at 18:42; Status DC Lidocaine HCl (Lidocaine 1% 20ml Vial) 20 ml STK-MED ONCE .ROUTE ; Start 11/25/20 at 15:15; Stop 11/25/20 at 15:16; Status DC Fentanyl Citrate (Fentanyl 2ml Vial) 100 mcg STK-MED ONCE .ROUTE ; Start 11/25/20 at 15:15; Stop 11/25/20 at 15:16; Status DC Azithromycin 250 ml @ 250 mls/hr 1X ONCE IV Last administered on 11/25/20at 15:48; Start 11/25/20 at 15:30; Stop 11/25/20 at 16:29; Status DC Metronidazole 100 ml @ 100 mls/hr 1X ONCE IV ; Start 11/25/20 at 16:00; Stop 11/25/20 at 18:42; Status DC Iohexol (Omnipaque 350 Mg/ml) 100 ml 1X ONCE IV Last administered on 11/25/20a t 16:41; Start 11/25/20 at 16:30; Stop 11/25/20 at 16:31; Status DC Info (CONTRAST GIVEN -- Rx MONITORING) 1 each PRN DAILY PRN MC SEE COMMENTS; Start 11/25/20 at 16:45; Stop 11/27/20 at 16:44; Status DC Sennosides (Senna) 17.2 mg PRN BID PRN PO CONSTIPATION; Start 11/25/20 at 17:00 Docusate Sodium (Colace) 100 mg PRN DAILY PRN PO HARD STOOLS Last administered on 11/28/20at 09:25; Start 11/25/20 at 17:00 Ondansetron HCl (Zofran) 4 mg PRN Q6HRS PRN IVP NAUSEA/VOMITING Last administered on 11/27/20at 02:06; Start 11/25/20 at 17:00 Dextrose (Dextrose 50%-Water Syringe) 12.5 gm PRN Q15MIN PRN IV SEE COMMENTS; Start 11/25/20 at 17:00 Acetaminophen (Tylenol) 650 mg PRN Q4HRS PRN PO TEMP OVER 100.4F OR MILD PAIN Last administered on 11/26/20at 17:21; Start 11/25/20 at 17:00 Morphine Sulfate (Morphine Sulfate) 1 mg PRN Q1HR PRN IV PAIN - SEE COMMENTS Last administered on 11/26/20at 08:33; Start 11/25/20 at 17:00 Morphine Sulfate (Morphine Sulfate) 2 mg PRN Q2HR PRN IV SEVERE PAIN 7-10; Start 11/25/20 at 04:00; Stop 11/26/20 at 03:59; Status DC Vancomycin HCl (Vanco Per Pharmacy) 1 each PRN DAILY PRN MC SEE COMMENTS Last administered on 11/26/20at 21:22; Start 11/25/20 at 18:45; Stop 11/27/20 at 10:49; Status DC Piperacillin Sod/ Tazobactam Sod (Zosyn Per Pharmacy) 1 each PRN DAILY PRN MC SEE COMMENTS; Start 11/25/20 at 18:45 Vancomycin HCl 1.75 gm/Sodium Chloride 500 ml @ 250 mls/hr 1X ONCE IV Last administered on 11/25/20at 19:25; Start 11/25/20 at 19:00; Stop 11/25/20 at 20:59; Status DC Piperacillin Sod/ Tazobactam Sod 4.5 gm/Sodium Chloride 100 ml @ 200 mls/hr Q6HRS IV Last administered on 11/28/20at 04:53; Start 11/25/20 at 19:00 Vancomycin HCl 1 gm/Sodium Chloride 250 ml @ 250 mls/hr Q8H IV Last administered on 11/27/20at 03:30; Start 11/26/20 at 03:30; Stop 11/27/20 at 10:47; Status DC Vancomycin HCl (Vancomycin Trough Level) 1 each 1X ONCE MC ; Start 11/26/20 at 19:00; Stop 11/26/20 at 19:01; Status DC Cetirizine HCl (ZyrTEC) 10 mg DAILY PO Last administered on 11/28/20 09:25; Start 11/26/20 at 09:00 Ethambutol HCl (Myambutol) 1,600 mg QMWF PO Last administered on 11/26/20at 16:22; Start 11/26/20 at 16:00 Rifampin (Rifadin) 600 mg QTUTHSA PO Last administered on 11/27/20at 16:35; Start 11/27/20 at 16:00 Azithromycin (Zithromax) 500 mg QTUTHSA PO Last administered on 11/27/20at 16:35; Start 11/27/20 at 16:00 Famotidine (Pepcid) 20 mg PRN BID PO ; Start 11/25/20 at 22:45; Stop 11/25/20 at 22:43; Status DC Famotidine (Pepcid) 20 mg PRN BID PRN PO INDIGESTION Last administered on 11/28/20 09:25; Start 11/25/20 at 22:45 Albuterol/ Ipratropium (Combivent Respimat 20-100 Mcg) 2 puff PRN Q6HRS PRN INH SHORTNESS OF BREATH Last administered on 11/26/20at 08:16; Start 11/25/20 at 23:00 Nicotine (Nicoderm Cq 21mg) 1 patch DAILY TD Last administered on 11/28/20 09:25; Start 11/26/20 at 19:15 Pantoprazole Sodium (Protonix) 40 mg BIDAC PO Last administered on 11/28/20 09:25; Start 11/26/20 at 19:15 Vancomycin HCl (Vancomycin Trough Level) 1 each 1X ONCE MC ; Start 11/27/20 at 11:00; Stop 11/27/20 at 11:01; Status Cancel Doxycycline Hyclate (Vibra-Tab) 100 mg BID PO Last administered on 11/28/20 09:26; Start 11/28/20 at 09:00 Active Scripts Active Reported Albuterol Sulfate Neb Soln (Albuterol Sulfate) 1.25 Mg/3 Ml Vial.neb 1.25 Mg NEB PRN TID PRN Rifampin 300 Mg Capsule 2 Cap PO QTUTHSA Ethambutol Hcl 400 Mg Tablet 4 Tab PO QMWF Cetirizine Hcl 10 Mg Tablet 1 Tab PO DAILY Symbicort 160-4.5 Mcg Inhaler (Budesonide/Formoterol Fumarate) 10.2 Gm Hfa.aer.ad 2 Puff IH BID Azithromycin Tablet (Azithromycin) 500 Mg Tablet 1 Tab PO QTUTHSA Vitals/I & O Vital Sign - Last 24 Hours 11/27/20 11/27/20 11/27/20 11/27/20 11:00 15:00 19:30 19:54 Temp 98.8 99.4 99.2 98.8 99.4 99.2 Pulse 105 115 115 Resp 24 22 18 B/P (MAP) 106/69 (81) 127/75 (92) 105/75 (85) Pulse Ox 96 91 96 O2 Delivery Nasal Cannula Nasal Cannula Nasal Cannula Nasal Cannula O2 Flow Rate 2.0 2.0 2.0 2.0 11/27/20 11/28/20 11/28/20 22:09 03:25 07:00 Temp 98.8 98.5 99.1 98.8 98.5 99.1 Pulse 111 109 104 Resp 18 16 16 B/P (MAP) 119/77 (91) 116/77 (90) 115/73 (87) Pulse Ox 97 97 97 O2 Delivery Nasal Cannula Nasal Cannula Nasal Cannula O2 Flow Rate 2.0 2.0 2.0 Intake and Output 11/27/20 11/27/20 11/28/20 15:00 23:00 07:00 Intake Total 425 ml 250 ml 300 ml Output Total 350 ml 1050 ml 1200 ml Balance 75 ml -800 ml -900 ml Justicifation of Admission Dx: Justifications for Admission: Justification of Admission Dx: Yes CHF: Cardiac Arrhythmias Respiratory Failure: Mechanical Ventilation CELIA GRANT MD Nov 28, 2020 10:38
[2020-11-28] MEDS ORDERED: CILASTATIN SODIUM IV ONE (12:00)
[2020-11-28] MEDS ORDERED: IMIPENEM IV ONE (12:00)
--- NOTE | 2020-11-28 12:11 | PDOC ---
PULMONARY PROGRESS NOTES DATE: 11/28/20 TIME: 12:09 Subjective Patient is currently on 2 L nasal cannula No increased SOA or cough low grade fever overnight No other concerns from nursing Vitals Vital Signs Date Time Temp Pulse Resp B/P (MAP) Pulse Ox O2 Delivery O2 Flow Rate FiO2 11/28/20 11:00 99.1 93 16 106/66 (79) 98 Nasal Cannula 2.0 99.1 Comments Patient seen during COVID- pandemic, visual exam performed ROS: No Nausea, No Chest Pain, No Abdominal Pain, No Increase Cough General: Alert Lungs: Crackles Cardiovascular: S1, S2 Abdomen: Soft, Non-tender Neuro Exam: Alert, Oriented Extremities: No Edema Skin: Warm, Dry Labs Laboratory Tests Test 11/26/20 19:23 11/27/20 08:50 Vancomycin Level Trough 24.7 mcg/mL (10.0-20.0) Vancomycin Last Dose Date 11/26/20 Vancomycin Last Dose Time 1130 White Blood Count 8.9 x10^3/uL (4.0-11.0) Red Blood Count 4.00 x10^6/uL (4.30-5.70) Hemoglobin 13.2 g/dL (13.0-17.5) Hematocrit 39.3 % (39.0-53.0) Mean Corpuscular Volume 98 fL (79-100) Mean Corpuscular Hemoglobin 33 pg (25-35) Mean Corpuscular Hemoglobin Concent 34 g/dL (31-37) Red Cell Distribution Width 12.9 % (11.5-14.5) Platelet Count 394 x10^3/uL (140-400) Neutrophils (%) (Auto) 77 % (31-73) Lymphocytes (%) (Auto) 12 % (24-48) Monocytes (%) (Auto) 10 % (0-9) Eosinophils (%) (Auto) 1 % (0-3) Basophils (%) (Auto) 0 % (0-3) Neutrophils # (Auto) 6.8 x10^3/uL (1.8-7.7) Lymphocytes # (Auto) 1.1 x10^3/uL (1.0-4.8) Monocytes # (Auto) 0.9 x10^3/uL (0.0-1.1) Eosinophils # (Auto) 0.1 x10^3/uL (0.0-0.7) Basophils # (Auto) 0.0 x10^3/uL (0.0-0.2) Sodium Level 138 mmol/L (136-145) Potassium Level 4.0 mmol/L (3.5-5.1) Chloride Level 101 mmol/L (98-107) Carbon Dioxide Level 31 mmol/L (21-32) Anion Gap 6 (6-14) Blood Urea Nitrogen 11 mg/dL (8-26) Creatinine 0.7 mg/dL (0.7-1.3) Estimated GFR (Cockcroft-Gault) 115.8 Glucose Level 105 mg/dL (70-99) Calcium Level 9.0 mg/dL (8.5-10.1) Medications Active Scripts Medications Dose Route/Sig Max Daily Dose Days Date Category Albuterol Sulfate Neb Soln (Albuterol Sulfate) 1.25 Mg/3 Ml Vial.neb 1.25 Mg NEB PRN TID PRN 11/25/20 Reported Rifampin 300 Mg Capsule 2 Cap PO QTUTHSA 11/25/20 Reported Ethambutol Hcl 400 Mg Tablet 4 Tab PO QMWF 11/25/20 Reported Cetirizine Hcl 10 Mg Tablet 1 Tab PO DAILY 09/05/19 Reported Symbicort 160-4.5 Mcg Inhaler (Budesonide/Formoterol Fumarate) 10.2 Gm Hfa.aer.ad 2 Puff IH BID 06/20/19 Reported Azithromycin Tablet (Azithromycin) 500 Mg Tablet 1 Tab PO QTUTHSA 11/25/20 Reported Comments CTA chest IMPRESSION: 1. No pulmonary embolus identified within the main, lobar or segmental pulmonary arteries. 2. When compared to the prior exam in May there has been progressive consolidation in the right upper lobe, left upper lobe and left lower lobe. This may represent worsening infectious/inflammatory process. Underlying malignancy is difficult to exclude. 3. The cavitary lesion seen in the left lung have increased in size with a air- fluid level noted within the left upper lobe cavity. CXR 11/27 Impression: 1. Decreased left pneumothorax. Slight retraction of left chest tube. 2. Decreased left upper lung masslike consolidation. 3. Additional multifocal opacities, unchanged. CXR 11/28/20 IMPRESSION: Stable patchy bilateral opacities. Impression . IMPRESSION: 1. Acute hypoxemic respiratory failure. 2. Abnormal chest x-ray revealing increasing left upper lobe mass. 3. History of Mycobacterium avium complex, status post bronchoscopy on 11/07 with continue identification of MAC despite 12 months treatment with triple antibiotics. 4. Chronic obstructive pulmonary disease. 5. Tobacco dependent. 6. History of alcoholism. 7. Spontaneous pneumothorax, suspect from disease along with possibly cancer. Plan . PLAN: Continue supplemental oxygen to keep oxygen saturations greater than 92%, remains on 2 liters N/C Continue left chest tube place to water seal today Daily CXR Influenza negative and COVID-[address] of chest reviewed: Negative for pulmonary embolism, ongoing/worsening infectious/inflammatory process, cavitary lesion in the left lung increased in size with air-fluid level noted with the left upper lobe cavity Continue bronchodilators Continue empiric antibiotics per ID --- follow cultures----Gram positive rods, Gram positive cocci on resp. culture PT/OT DVT/GI prophylaxis Discussed with HAILEE BORDEN MD Nov 28, 2020 12:11
[2020-11-28] MEDS: [UNRECOGNIZED DRUG - OTHER] IV SCH ×3 (12:14→23:02)
[2020-11-28] MEDS: NORMAL SALINE IV SCH ×3 (12:14→23:02)
--- NOTE | 2020-11-28 13:14 | PDOC ---
Infectious Disease Note Subjective: Subjective Patient feels better Fever improved Cough and shortness of breath are improving Vital Signs: Vital Signs Vital Signs Date Time Temp Pulse Resp B/P (MAP) Pulse Ox O2 Delivery O2 Flow Rate FiO2 11/28/20 11:00 99.1 93 16 106/66 (79) 98 Nasal Cannula 2.0 99.1 Physical Exam: PHYSICAL EXAM GENERAL: Alert, oriented x 3 male sitting upright in bed, in no acute distress. HEENT: Normocephalic, atraumatic, anicteric, edentulous. NECK: Supple, no JVD. LUNGS: Decreased breath sounds, bilateral crackles. Left chest tube present. ABDOMEN: Soft, bowel sounds present, nontender, nondistended. EXTREMITIES: No edema, no cyanosis. DERMATOLOGIC: Warm and dry. No generalized rash. NEUROLOGIC: Alert and oriented x 3, grossly nonfocal. PSYCHIATRIC: Cooperative, appropriate mood and affect. Medications: Inpatient Meds: Current Medications Medications (Trade) Dose Ordered Sig/Brianda Start Time Stop Time Status Last Admin Dose Admin Acetaminophen (Tylenol) 650 mg PRN Q4HRS PRN 11/25/20 17:00 11/26/20 17:21 650 MG Albuterol/ Ipratropium (Combivent Respimat 20-100 Mcg) 2 puff PRN Q6HRS PRN 11/25/20 23:00 11/26/20 08:16 2 PUFF Albuterol/ Ipratropium (Duoneb) 3 ml 1X ONCE 11/25/20 15:00 11/25/20 15:11 DC 11/25/20 17:07 3 ML Azithromycin (Zithromax) 500 mg QTUTHSA 11/27/20 16:00 11/27/20 16:35 500 MG Cetirizine HCl (ZyrTEC) 10 mg DAILY 11/26/20 09:00 11/28/20 09:25 10 MG Dexamethasone Sodium Phosphate (Decadron) 10 mg 1X ONCE 11/25/20 15:00 11/25/20 15:11 DC 11/25/20 15:22 10 MG Dextrose (Dextrose 50%-Water Syringe) 12.5 gm PRN Q15MIN PRN 11/25/20 17:00 Docusate Sodium (Colace) 100 mg PRN DAILY PRN 11/25/20 17:00 11/28/20 09:25 100 MG Doxycycline Hyclate (Vibra-Tab) 100 mg BID 11/28/20 09:00 11/28/20 09:26 100 MG Ethambutol HCl (Myambutol) 1,600 mg QMWF 11/26/20 16:00 11/26/20 16:22 1,600 MG Famotidine (Pepcid) 20 mg PRN BID PRN 11/25/20 22:45 11/28/20 09:25 20 MG Fentanyl Citrate (Fentanyl 2ml Vial) 100 mcg STK-MED ONCE 11/25/20 15:15 11/25/20 15:16 DC Info (CONTRAST GIVEN -- Rx MONITORING) 1 each PRN DAILY PRN 11/25/20 16:45 11/27/20 16:44 DC Iohexol (Omnipaque 350 Mg/ml) 100 ml 1X ONCE 11/25/20 16:30 11/25/20 16:31 DC 11/25/20 16:41 100 ML Ketorolac Tromethamine (Toradol 15mg Vial) 15 mg 1X ONCE 11/25/20 15:15 11/25/20 15:16 DC 11/25/20 15:24 15 MG Lidocaine HCl (Lidocaine 1% 20ml Vial) 20 ml STK-MED ONCE 11/25/20 15:15 11/25/20 15:16 DC Metronidazole 100 ml @ 100 mls/hr 1X ONCE 11/25/20 16:00 11/25/20 18:42 DC Morphine Sulfate (Morphine Sulfate) 2 mg PRN Q2HR PRN 11/25/20 04:00 11/26/20 03:59 DC Nicotine (Nicoderm Cq 21mg) 1 patch DAILY 11/26/20 19:15 11/28/20 09:25 1 PATCH Non-Formulary Medication 500 ea/ Sodium Chloride 100 ml @ 200 mls/hr Q6HRS 11/28/20 12:00 11/28/20 12:14 200 MLS/HR Ondansetron HCl (Zofran) 4 mg PRN Q6HRS PRN 11/25/20 17:00 11/27/20 02:06 4 MG Pantoprazole Sodium (Protonix) 40 mg BIDAC 11/26/20 19:15 11/28/20 09:25 40 MG Piperacillin Sod/ Tazobactam Sod (Zosyn Per Pharmacy) 1 each PRN DAILY PRN 11/25/20 18:45 11/28/20 11:39 DC Piperacillin Sod/ Tazobactam Sod 4.5 gm/Sodium Chloride 100 ml @ 200 mls/hr Q6HRS 11/25/20 19:00 11/28/20 11:39 DC 11/28/20 04:53 200 MLS/HR Rifampin (Rifadin) 600 mg QTUTHSA 11/27/20 16:00 11/27/20 16:35 600 MG Sennosides (Senna) 17.2 mg PRN BID PRN 11/25/20 17:00 Sodium Chloride 1,000 ml @ 1,000 mls/hr 1X ONCE 11/25/20 14:45 11/25/20 15:44 DC 11/25/20 15:49 1,000 MLS/HR Vancomycin HCl (Vanco Per Pharmacy) 1 each PRN DAILY PRN 11/25/20 18:45 11/27/20 10:49 DC 11/26/20 21:22 1 EACH Vancomycin HCl (Vancomycin Trough Level) 1 each 1X ONCE 11/27/20 11:00 11/27/20 11:01 Cancel Vancomycin HCl 1.75 gm/Sodium Chloride 500 ml @ 250 mls/hr 1X ONCE 11/25/20 19:00 11/25/20 20:59 DC 11/25/20 19:25 250 MLS/HR Vancomycin HCl 1 gm/Sodium Chloride 250 ml @ 250 mls/hr Q8H 11/26/20 03:30 11/27/20 10:47 DC 11/27/20 03:30 250 MLS/HR Labs: Micro RUN DATE: 11/28/20 [facility] *LIVE* PAGE 1 RUN TIME: 919 Specimen Inquiry PATIENT: CHINO GODINEZ ACCT: [id number] LOC: 2 [facility] U: [id number] AGE/SX: 60/M ROOM: 244 RE11/25/[address]: LAURA PEREZ MD : 1960 BED: 1 DIS: STATUS: ADM IN TLOC: SPEC #: [id number] BAKARI: 11/25/20 STATUS: COMP REQ #: [id number] RECD: 11/25/[address] [facility] [address]: TIRSO SANCHEZ DO SOURCE: SPUTUM ENTR: 11/25/20-[address] [facility] [address]: MARIA GUADALUPE MARTELL SPDESC: INDUCED ORDERED: RESP CULTURE COMMENTS: Has specimen been collected/obtained? Y Procedure Result GRAM STAIN EVALUATION Final Final GRAM POSITIVE RODS:MODERATE GRAM POSITIVE COCCI:MANY SQUAMOUS EPI CELL:FEW PMN (WBCs):MANY Unless otherwise specified, Testing Performed by: [address] [address] For Inquires, the Physician may contact the Microbiology department at [phone] RESPIRATORY CULTURE Final Final MODERATE Mixed upper respiratory elliot on 11/27/20 at 1042 MODERATE Mixed upper respiratory elliot on 11/28/20 at 0917 Unless otherwise specified, Testing Performed by: [address] [address] For Inquires, the Physician may contact the Microbiology department at [phone] Objective: Assessment: Very complicated patient with recurrent pulmonoary infections with underlying COPD Smoking and ETOH dependence. 1. Fever, source Pulmonary. Pattern improving 2. Acute hypoxic respiratory failure. 3. Abnormal CT with worsening lung mass and air fluid level likely lung abscess. 4. Spontaneous pneumothorax left loculated fluid collection concern for empyema, status post chest tube placement 11/25/2020. Cultures not available 5. COVID-19 PUI. 6. Elevated D-dimer. 7. Severe protein-calorie malnutrition. 8. Tobacco dependence. 9. Alcohol dependence. 10. Weight loss. 11. History of pulmonary Mycobacterium avium complex, treated with more than 12 months of treatment with rifampin, azithromycin, and ethambutol. 13. History of multiple cultures in the past with Mycobacterium avium complex positive numerous times,Nocardia, Actinomyces, penicillium, Heena glabrata. Streptococcus pneumoniae, susceptible to ceftriaxone and Levaquin Plan: Plan of Care The current presentation is likely not from his underlying Pulmonary MAC infection. Nocardiosis and Actinomyces can cause nonresolving lung infections with progression. Will start pt on Imipenem when available, pharmacy does not haveit in supply, they are attempting to get it from other hospital Continue Zosyn until imipenem is available Continue doxycycline Continue MAC treatment pending susceptibility results at this time. The patient has undergone spontaneous pneumothorax and lung abscess management per Pulmonary Influenza screen negative. COVID-19 negative Follow up labs and cultures. Continue supportive care. Discussed with MEGHA. TORIBIO BONE MD Nov 28, 2020 13:14
[2020-11-28] MEDS: ETHAMBUTOL HCL 400 MG TABLET PO SCH (16:21)
[2020-11-29 03:19] VITALS: BP 114/70
[2020-11-29] MEDS: NORMAL SALINE IV SCH ×4 (05:15→23:11)
[2020-11-29] MEDS: [UNRECOGNIZED DRUG - OTHER] IV SCH ×4 (05:15→23:11)
[2020-11-29 05:56] LABS: CALCIUM 8.7 mg/dL (8.5-10.1); CREATININE 0.7 mg/dL (0.7-1.3); GFR 115.8; POTASSIUM 3.5 mmol/L (3.5-5.1)
[2020-11-29 06:07] LABS: BASO % 0 % (0-3); EOS # 0.2 x10^3/uL (0.0-0.7); EOS % 2 % (0-3); HEMATOCRIT 36.7 % (39.0-53.0); HEMOGLOBIN 12.5 g/dL (13.0-17.5); LYMPH % 12 % (24-48); MEAN CORPUSCULAR HEMOGLOBIN 33 pg (25-35); MEAN CORPUSCULAR HGB CONC 34 g/dL (31-37); MEAN CORPUSCULAR VOLUME 98 fL (79-100); MONO % 13 % (0-9); NEUT # 5.8 x10^3/uL (1.8-7.7); NEUT % 73 % (31-73); PLATELET COUNT 419 x10^3/uL (140-400); RED BLOOD COUNT 3.75 x10^6/uL (4.30-5.70); WHITE BLOOD COUNT 8.1 x10^3/uL (4.0-11.0)
[2020-11-29 07:00] VITALS: BP 104/70
[2020-11-29] MEDS: PANTOPRAZOLE 40 MG TABLET.DR. PO SCH ×2 (07:26→16:32)
[2020-11-29] MEDS: CETIRIZINE HCL 10 MG TABLET. PO SCH (07:27)
[2020-11-29] MEDS: DOXYCYCLINE HYCLATE 100 MG TABLET PO SCH ×2 (07:27→20:11)
[2020-11-29] MEDS: NICOTINE 21MG PATCH. TD SCH (07:27)
--- NOTE | 2020-11-29 08:00 | RAD ---
XR CHEST 1V INDICATION: Reason: pna / Spl. Instructions: / History: . COMPARISON STUDY: 11/28/2020. FINDINGS: Lungs: Normal lung volume. Stable patchy bilateral consolidation. Pleura: No pleural effusion or pneumothorax. Heart and Mediastinum: Stable cardiomediastinal silhouette and great vessels. Bones and Soft Tissues: Stable regional skeleton and soft tissues. IMPRESSION: Stable patchy bilateral consolidations. Electronically signed by: Zay Roy MD (11/29/2020 7:58 AM) [id number]
[2020-11-29] MEDS ORDERED: CILASTATIN SODIUM IV ONE (09:00)
[2020-11-29] MEDS ORDERED: IMIPENEM IV ONE (09:00)
--- NOTE | 2020-11-29 10:12 | PDOC ---
PULMONARY PROGRESS NOTES DATE: 11/29/20 TIME: 10:10 Subjective Patient is currently on 2 L nasal cannula No increased SOA Still had productive cough No other concerns from nursing Vitals Vital Signs Date Time Temp Pulse Resp B/P (MAP) Pulse Ox O2 Delivery O2 Flow Rate FiO2 11/29/20 07:00 96.5 101 16 104/70 (81) 97 Nasal Cannula 2.0 96.5 Comments Patient seen during COVID- pandemic, visual exam performed ROS: No Nausea, No Chest Pain, No Abdominal Pain, No Increase Cough General: Alert Lungs: Crackles Cardiovascular: S1, S2 Abdomen: Soft, Non-tender Neuro Exam: Alert, Oriented Extremities: No Edema Skin: Warm, Dry Labs Laboratory Tests Test 11/29/20 05:00 White Blood Count 8.1 x10^3/uL (4.0-11.0) Red Blood Count 3.75 x10^6/uL (4.30-5.70) Hemoglobin 12.5 g/dL (13.0-17.5) Hematocrit 36.7 % (39.0-53.0) Mean Corpuscular Volume 98 fL (79-100) Mean Corpuscular Hemoglobin 33 pg (25-35) Mean Corpuscular Hemoglobin Concent 34 g/dL (31-37) Red Cell Distribution Width 13.0 % (11.5-14.5) Platelet Count 419 x10^3/uL (140-400) Neutrophils (%) (Auto) 73 % (31-73) Lymphocytes (%) (Auto) 12 % (24-48) Monocytes (%) (Auto) 13 % (0-9) Eosinophils (%) (Auto) 2 % (0-3) Basophils (%) (Auto) 0 % (0-3) Neutrophils # (Auto) 5.8 x10^3/uL (1.8-7.7) Lymphocytes # (Auto) 1.0 x10^3/uL (1.0-4.8) Monocytes # (Auto) 1.0 x10^3/uL (0.0-1.1) Eosinophils # (Auto) 0.2 x10^3/uL (0.0-0.7) Basophils # (Auto) 0.0 x10^3/uL (0.0-0.2) Sodium Level 139 mmol/L (136-145) Potassium Level 3.5 mmol/L (3.5-5.1) Chloride Level 101 mmol/L (98-107) Carbon Dioxide Level 33 mmol/L (21-32) Anion Gap 5 (6-14) Blood Urea Nitrogen 8 mg/dL (8-26) Creatinine 0.7 mg/dL (0.7-1.3) Estimated GFR (Cockcroft-Gault) 115.8 Glucose Level 124 mg/dL (70-99) Calcium Level 8.7 mg/dL (8.5-10.1) Laboratory Tests Test 11/29/20 05:00 White Blood Count 8.1 x10^3/uL (4.0-11.0) Red Blood Count 3.75 x10^6/uL (4.30-5.70) Hemoglobin 12.5 g/dL (13.0-17.5) Hematocrit 36.7 % (39.0-53.0) Mean Corpuscular Volume 98 fL (79-100) Mean Corpuscular Hemoglobin 33 pg (25-35) Mean Corpuscular Hemoglobin Concent 34 g/dL (31-37) Red Cell Distribution Width 13.0 % (11.5-14.5) Platelet Count 419 x10^3/uL (140-400) Neutrophils (%) (Auto) 73 % (31-73) Lymphocytes (%) (Auto) 12 % (24-48) Monocytes (%) (Auto) 13 % (0-9) Eosinophils (%) (Auto) 2 % (0-3) Basophils (%) (Auto) 0 % (0-3) Neutrophils # (Auto) 5.8 x10^3/uL (1.8-7.7) Lymphocytes # (Auto) 1.0 x10^3/uL (1.0-4.8) Monocytes # (Auto) 1.0 x10^3/uL (0.0-1.1) Eosinophils # (Auto) 0.2 x10^3/uL (0.0-0.7) Basophils # (Auto) 0.0 x10^3/uL (0.0-0.2) Sodium Level 139 mmol/L (136-145) Potassium Level 3.5 mmol/L (3.5-5.1) Chloride Level 101 mmol/L (98-107) Carbon Dioxide Level 33 mmol/L (21-32) Anion Gap 5 (6-14) Blood Urea Nitrogen 8 mg/dL (8-26) Creatinine 0.7 mg/dL (0.7-1.3) Estimated GFR (Cockcroft-Gault) 115.8 Glucose Level 124 mg/dL (70-99) Calcium Level 8.7 mg/dL (8.5-10.1) Medications Active Scripts Medications Dose Route/Sig Max Daily Dose Days Date Category Albuterol Sulfate Neb Soln (Albuterol Sulfate) 1.25 Mg/3 Ml Vial.neb 1.25 Mg NEB PRN TID PRN 11/25/20 Reported Rifampin 300 Mg Capsule 2 Cap PO QTUTHSA 11/25/20 Reported Ethambutol Hcl 400 Mg Tablet 4 Tab PO QMWF 11/25/20 Reported Cetirizine Hcl 10 Mg Tablet 1 Tab PO DAILY 09/05/19 Reported Symbicort 160-4.5 Mcg Inhaler (Budesonide/Formoterol Fumarate) 10.2 Gm Hfa.aer.ad 2 Puff IH BID 06/20/19 Reported Azithromycin Tablet (Azithromycin) 500 Mg Tablet 1 Tab PO QTUTHSA 11/25/20 Reported Comments CTA chest IMPRESSION: 1. No pulmonary embolus identified within the main, lobar or segmental pulmonary arteries. 2. When compared to the prior exam in May there has been progressive consolidation in the right upper lobe, left upper lobe and left lower lobe. This may represent worsening infectious/inflammatory process. Underlying malignancy is difficult to exclude. 3. The cavitary lesion seen in the left lung have increased in size with a air- fluid level noted within the left upper lobe cavity. CXR 11/27 Impression: 1. Decreased left pneumothorax. Slight retraction of left chest tube. 2. Decreased left upper lung masslike consolidation. 3. Additional multifocal opacities, unchanged. CXR 11/29/20 IMPRESSION: Stable patchy bilateral consolidations. Impression . IMPRESSION: 1. Acute hypoxemic respiratory failure. 2. Abnormal chest x-ray revealing increasing left upper lobe mass. 3. History of Mycobacterium avium complex, status post bronchoscopy on 11/07 with continue identification of MAC despite 12 months treatment with triple antibiotics. 4. Chronic obstructive pulmonary disease. 5. Tobacco dependent. 6. History of alcoholism. 7. Spontaneous pneumothorax, suspect from disease along with possibly cancer. Plan . PLAN: Continue supplemental oxygen to keep oxygen saturations greater than 92%, remains on 2 liters N/C Continue left chest tube-- clamp chest tube today plan to D/C in am Daily CXR-- reviewed Influenza negative and COVID-[address] of chest reviewed: Negative for pulmonary embolism, ongoing/worsening infectious/inflammatory process, cavitary lesion in the left lung increased in size with air-fluid level noted with the left upper lobe cavity Continue bronchodilators Continue empiric antibiotics per ID --- follow cultures----Gram positive rods, Gram positive cocci on resp. 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
--- NOTE | 2020-11-29 10:43 | PDOC ---
PROGRESS NOTES Date of Service: DATE: 11/29/20 TIME: 10:42 Chief Complaint Chief Complaint Images: Images CXR Impression: 1. Small left lateral loculated pneumothorax. 2. Increased left upper lung masslike consolidation with additional consolidations bilaterally, may represent pneumonia although malignancy is possible. Recommend CT to further evaluate. Also recommend comparison with prior biopsy results. 3. Small left pleural effusion. CXR Impression: 1. Chest tube placement with near complete evaluation of pneumothorax. There still some apical pneumothorax identified. There is persistent biapical thickening of the lungs with a stable left upper lobe mass. Pending chest CTA Assessment/Plan Assessment/Plan Acute respiratory distress due to left pneumothorax and CAP Left loculated pneumothorax concern for empyema status post chest tube placement 11/25/2020 Investigation for COVID-19 infection Elevated D-dimer Severe protein malnutrition Tobacco and alcohol misuse History of Mycobacterium avium complex, status post bronchoscopy on 11/07 with continue identification of MAC despite 12 months treatment with triple antibiotics. Chronic obstructive pulmonary disease. Tobacco dependent. History of alcoholism. Spontaneous pneumothorax, ETIOLOGY possibly cancer. Continue empiric antibiotics per ID --- follow cultures----Gram positive rods, Gram positive cocci on resp. culture PT/OT Admit to medicine for further management Pulmonology consult for chest tube management Pending blood and sputum cultures Continue IV empiric antibiotics for pneumonia Lovenox for DVT prophylaxis Regular diet Full code Discussed with RN and SW Disposition inpatient management as above Surrogate decision maker is the start pt on Imipenem,doxycycline cover Nocardia and Actinomyces. Continue MAC treatment pending susceptibility results at this time. Discontinue vancomycin due to high trough and Zosyn.. Cont Imipenem/ doxycycline The cavitary lesion seen in the left lung have increased in size with a air- fluid level noted within the left upper lobe cavity. 36 min pt exam, chart review, > 50% of time spent with exam, chart review, pt care coordination Justifications for Admission Justifications for Admission Other Justification History of Present Illness History of Present Illness Chief Complaint: Chief Complain: SOB History of Present Illness: HPI: Patient is a 60-year-old male with past medical history of COPD, MAC infection in the past, recent bronchoscopy with Dr. Dowd on 11/11/2020 who presents with shortness of breath for the past week after getting the bronchoscopy. Patient follows with Dr. Dowd for the past 4 years patient has been on antibiotics for a year for MAC. Patient states also he does have productive cough. Denies fevers, chest pain, abdominal pain, diarrhea. ED course: Patient was found to have a pneumothorax loculated and the chest tube was placed in the ED 8 Uzbek catheter. Minimal amount of fluid and air was produced. Patient has copious purulent sputum being produced. Past Medical/Surgical History: PMH/PSH: Past Medical History: COPD, MAC disease; left lung mass Past Surgical History: 11/11/20 bronchoscopy; biopsy of lung Allergies: Allergies: Coded Allergies: I S O L A T I O N *CONTACT* (Verified Allergy, Unknown, 09/05/19) Meropenum resistant-strep pneumoniae No Known Medication Allergies (Verified Allergy, Unknown, 09/05/19) Family History: Family History: Reviewed with no relevant findings Social History: Social History: Smoking Status: Current Every Day Smoker Additional Information: quit 2 weeks ago Alcohol Use: Sober Vitals Vitals Vital Signs Date Time Temp Pulse Resp B/P (MAP) Pulse Ox O2 Delivery O2 Flow Rate FiO2 11/29/20 07:00 96.5 101 16 104/70 (81) 97 Nasal Cannula 2.0 96.5 Physical Exam Physical Exam GENERAL: Alert, oriented x 3 male sitting upright in bed, in no acute distress. HEENT: Normocephalic, atraumatic, anicteric, edentulous. NECK: Supple, no JVD. LUNGS: Decreased breath sounds, bilateral crackles. Left chest tube present. ABDOMEN: Soft, bowel sounds present, nontender, nondistended. EXTREMITIES: No edema, no cyanosis. DERMATOLOGIC: Warm and dry. No generalized rash. NEUROLOGIC: Alert and oriented x 3, grossly nonfocal. PSYCHIATRIC: Cooperative, appropriate mood and affect. General: Alert, Oriented X3, Cooperative, No acute distress Lungs: Crackles Abdomen: Soft Extremities: No cyanosis, No edema Labs LABS Laboratory Tests Test 11/29/20 05:00 White Blood Count 8.1 x10^3/uL (4.0-11.0) Red Blood Count 3.75 x10^6/uL (4.30-5.70) Hemoglobin 12.5 g/dL (13.0-17.5) Hematocrit 36.7 % (39.0-53.0) Mean Corpuscular Volume 98 fL (79-100) Mean Corpuscular Hemoglobin 33 pg (25-35) Mean Corpuscular Hemoglobin Concent 34 g/dL (31-37) Red Cell Distribution Width 13.0 % (11.5-14.5) Platelet Count 419 x10^3/uL (140-400) Neutrophils (%) (Auto) 73 % (31-73) Lymphocytes (%) (Auto) 12 % (24-48) Monocytes (%) (Auto) 13 % (0-9) Eosinophils (%) (Auto) 2 % (0-3) Basophils (%) (Auto) 0 % (0-3) Neutrophils # (Auto) 5.8 x10^3/uL (1.8-7.7) Lymphocytes # (Auto) 1.0 x10^3/uL (1.0-4.8) Monocytes # (Auto) 1.0 x10^3/uL (0.0-1.1) Eosinophils # (Auto) 0.2 x10^3/uL (0.0-0.7) Basophils # (Auto) 0.0 x10^3/uL (0.0-0.2) Sodium Level 139 mmol/L (136-145) Potassium Level 3.5 mmol/L (3.5-5.1) Chloride Level 101 mmol/L (98-107) Carbon Dioxide Level 33 mmol/L (21-32) Anion Gap 5 (6-14) Blood Urea Nitrogen 8 mg/dL (8-26) Creatinine 0.7 mg/dL (0.7-1.3) Estimated GFR (Cockcroft-Gault) 115.8 Glucose Level 124 mg/dL (70-99) Calcium Level 8.7 mg/dL (8.5-10.1) Assessment and Plan Assessmemt and Plan Problems Medical Problems: (1) Multifocal pneumonia Status: Acute (2) Person under investigation for COVID-19 Status: Acute (3) Sepsis Status: Acute (4) Spontaneous pneumothorax Status: Acute Comment Review of Relevant I have reviewed the following items angelique (where applicable) has been applied. Labs Laboratory Tests Test 11/29/20 05:00 White Blood Count 8.1 x10^3/uL (4.0-11.0) Red Blood Count 3.75 x10^6/uL (4.30-5.70) Hemoglobin 12.5 g/dL (13.0-17.5) Hematocrit 36.7 % (39.0-53.0) Mean Corpuscular Volume 98 fL (79-100) Mean Corpuscular Hemoglobin 33 pg (25-35) Mean Corpuscular Hemoglobin Concent 34 g/dL (31-37) Red Cell Distribution Width 13.0 % (11.5-14.5) Platelet Count 419 x10^3/uL (140-400) Neutrophils (%) (Auto) 73 % (31-73) Lymphocytes (%) (Auto) 12 % (24-48) Monocytes (%) (Auto) 13 % (0-9) Eosinophils (%) (Auto) 2 % (0-3) Basophils (%) (Auto) 0 % (0-3) Neutrophils # (Auto) 5.8 x10^3/uL (1.8-7.7) Lymphocytes # (Auto) 1.0 x10^3/uL (1.0-4.8) Monocytes # (Auto) 1.0 x10^3/uL (0.0-1.1) Eosinophils # (Auto) 0.2 x10^3/uL (0.0-0.7) Basophils # (Auto) 0.0 x10^3/uL (0.0-0.2) Sodium Level 139 mmol/L (136-145) Potassium Level 3.5 mmol/L (3.5-5.1) Chloride Level 101 mmol/L (98-107) Carbon Dioxide Level 33 mmol/L (21-32) Anion Gap 5 (6-14) Blood Urea Nitrogen 8 mg/dL (8-26) Creatinine 0.7 mg/dL (0.7-1.3) Estimated GFR (Cockcroft-Gault) 115.8 Glucose Level 124 mg/dL (70-99) Calcium Level 8.7 mg/dL (8.5-10.1) Laboratory Tests Test 11/29/20 05:00 White Blood Count 8.1 x10^3/uL (4.0-11.0) Red Blood Count 3.75 x10^6/uL (4.30-5.70) Hemoglobin 12.5 g/dL (13.0-17.5) Hematocrit 36.7 % (39.0-53.0) Mean Corpuscular Volume 98 fL (79-100) Mean Corpuscular Hemoglobin 33 pg (25-35) Mean Corpuscular Hemoglobin Concent 34 g/dL (31-37) Red Cell Distribution Width 13.0 % (11.5-14.5) Platelet Count 419 x10^3/uL (140-400) Neutrophils (%) (Auto) 73 % (31-73) Lymphocytes (%) (Auto) 12 % (24-48) Monocytes (%) (Auto) 13 % (0-9) Eosinophils (%) (Auto) 2 % (0-3) Basophils (%) (Auto) 0 % (0-3) Neutrophils # (Auto) 5.8 x10^3/uL (1.8-7.7) Lymphocytes # (Auto) 1.0 x10^3/uL (1.0-4.8) Monocytes # (Auto) 1.0 x10^3/uL (0.0-1.1) Eosinophils # (Auto) 0.2 x10^3/uL (0.0-0.7) Basophils # (Auto) 0.0 x10^3/uL (0.0-0.2) Sodium Level 139 mmol/L (136-145) Potassium Level 3.5 mmol/L (3.5-5.1) Chloride Level 101 mmol/L (98-107) Carbon Dioxide Level 33 mmol/L (21-32) Anion Gap 5 (6-14) Blood Urea Nitrogen 8 mg/dL (8-26) Creatinine 0.7 mg/dL (0.7-1.3) Estimated GFR (Cockcroft-Gault) 115.8 Glucose Level 124 mg/dL (70-99) Calcium Level 8.7 mg/dL (8.5-10.1) Microbiology 11/25/20 Gram Stain Evaluation - Final, Complete 11/25/20 Respiratory Culture - Final, Complete 11/25/20 Blood Culture - Preliminary, Resulted NO GROWTH AFTER 3 DAYS Medications Current Medications Sodium Chloride 1,000 ml @ 1,000 mls/hr Q1H IV Last administered on 11/25/20at 15:27; Start 11/25/20 at 14:45; Stop 11/25/20 at 15:44; Status DC Sodium Chloride 1,000 ml @ 1,000 mls/hr 1X ONCE IV Last administered on 11/25/20at 15:49; Start 11/25/20 at 14:45; Stop 11/25/20 at 15:44; Status DC Vancomycin HCl (Vanco Per Pharmacy) 1 each PRN DAILY PRN MC SEE COMMENTS; Sta rt 11/25/20 at 14:45; Stop 11/25/20 at 18:48; Status DC Piperacillin Sod/ Tazobactam Sod 4.5 gm/Sodium Chloride 100 ml @ 200 mls/hr 1X ONCE IV ; Start 11/25/20 at 14:45; Stop 11/25/20 at 18:42; Status DC Dexamethasone Sodium Phosphate (Decadron) 10 mg 1X ONCE IV Last administered on 11/25/20at 15:22; Start 11/25/20 at 15:00; Stop 11/25/20 at 15:11; Status DC Albuterol/ Ipratropium (Duoneb) 3 ml 1X ONCE NEB Last administered on 11/25/20at 17:07; Start 11/25/20 at 15:00; Stop 11/25/20 at 15:11; Status DC Fentanyl Citrate (Fentanyl 2ml Vial) 100 mcg 1X ONCE IVP Last administered on 11/25/20at 15:24; Start 11/25/20 at 15:15; Stop 11/25/20 at 15:41; Status DC Lidocaine HCl (Lidocaine 1% 20ml Vial) 20 ml 1X ONCE INJ Last administered on 11/25/20at 15:23; Start 11/25/20 at 15:15; Stop 11/25/20 at 15:41; Status DC Ketorolac Tromethamine (Toradol 15mg Vial) 15 mg 1X ONCE IVP Last administered on 11/25/20at 15:24; Start 11/25/20 at 15:15; Stop 11/25/20 at 15:16; Status DC Vancomycin HCl 1.75 gm/Sodium Chloride 500 ml @ 250 mls/hr 1X ONCE IV ; Start 11/25/20 at 15:30; Stop 11/25/20 at 18:42; Status DC Lidocaine HCl (Lidocaine 1% 20ml Vial) 20 ml STK-MED ONCE .ROUTE ; Start 11/25/20 at 15:15; Stop 11/25/20 at 15:16; Status DC Fentanyl Citrate (Fentanyl 2ml Vial) 100 mcg STK-MED ONCE .ROUTE ; Start 11/25/20 at 15:15; Stop 11/25/20 at 15:16; Status DC Azithromycin 250 ml @ 250 mls/hr 1X ONCE IV Last administered on 11/25/20at 15:48; Start 11/25/20 at 15:30; Stop 11/25/20 at 16:29; Status DC Metronidazole 100 ml @ 100 mls/hr 1X ONCE IV ; Start 11/25/20 at 16:00; Stop 11/25/20 at 18:42; Status DC Iohexol (Omnipaque 350 Mg/ml) 100 ml 1X ONCE IV Last administered on 11/25/20at 16:41; Start 11/25/20 at 16:30; Stop 11/25/20 at 16:31; Status DC Info (CONTRAST GIVEN -- Rx MONITORING) 1 each PRN DAILY PRN MC SEE COMMENTS; Start 11/25/20 at 16:45; Stop 11/27/20 at 16:44; Status DC Sennosides (Senna) 17.2 mg PRN BID PRN PO CONSTIPATION; Start 11/25/20 at 17:00 Docusate Sodium (Colace) 100 mg PRN DAILY PRN PO HARD STOOLS Last administered on 11/28/20at 09:25; Start 11/25/20 at 17:00 Ondansetron HCl (Zofran) 4 mg PRN Q6HRS PRN IVP NAUSEA/VOMITING Last administered on 11/27/20at 02:06; Start 11/25/20 at 17:00 Dextrose (Dextrose 50%-Water Syringe) 12.5 gm PRN Q15MIN PRN IV SEE COMMENTS; Start 11/25/20 at 17:00 Acetaminophen (Tylenol) 650 mg PRN Q4HRS PRN PO TEMP OVER 100.4F OR MILD PAIN Last administered on 11/26/20at 17:21; Start 11/25/20 at 17:00 Morphine Sulfate (Morphine Sulfate) 1 mg PRN Q1HR PRN IV PAIN - SEE COMMENTS Last administered on 11/26/20at 08:33; Start 11/25/20 at 17:00 Morphine Sulfate (Morphine Sulfate) 2 mg PRN Q2HR PRN IV SEVERE PAIN 7-10; Start 11/25/20 at 04:00; Stop 11/26/20 at 03:59; Status DC Vancomycin HCl (Vanco Per Pharmacy) 1 each PRN DAILY PRN MC SEE COMMENTS Last administered on 11/26/20at 21:22; Start 11/25/20 at 18:45; Stop 11/27/20 at 10:49; Status DC Piperacillin Sod/ Tazobactam Sod (Zosyn Per Pharmacy) 1 each PRN DAILY PRN MC SEE COMMENTS; Start 11/25/20 at 18:45; Stop 11/28/20 at 11:39; Status DC Vancomycin HCl 1.75 gm/Sodium Chloride 500 ml @ 250 mls/hr 1X ONCE IV Last administered on 11/25/20at 19:25; Start 11/25/20 at 19:00; Stop 11/25/20 at 20:59; Status DC Piperacillin Sod/ Tazobactam Sod 4.5 gm/Sodium Chloride 100 ml @ 200 mls/hr Q6HRS IV Last administered on 11/28/20at 04:53; Start 11/25/20 at 19:00; Stop 11/28/20 at 11:39; Status DC Vancomycin HCl 1 gm/Sodium Chloride 250 ml @ 250 mls/hr Q8H IV Last administered on 11/27/20at 03:30; Start 11/26/20 at 03:30; Stop 11/27/20 at 10:47; Status DC Vancomycin HCl (Vancomycin Trough Level) 1 each 1X ONCE MC ; Start 11/26/20 at 19:00; Stop 11/26/20 at 19:01; Status DC Cetirizine HCl (ZyrTEC) 10 mg DAILY PO Last administered on 11/29/20at 07:27; Start 11/26/20 at 09:00 Ethambutol HCl (Myambutol) 1,600 mg QMWF PO Last administered on 11/28/20at 16:21; Start 11/26/20 at 16:00 Rifampin (Rifadin) 600 mg QTUTHSA PO Last administered on 11/27/20at 16:35; Start 11/27/20 at 16:00 Azithromycin (Zithromax) 500 mg QTUTHSA PO Last administered on 11/27/20at 16:35; Start 11/27/20 at 16:00 Famotidine (Pepcid) 20 mg PRN BID PO ; Start 11/25/20 at 22:45; Stop 11/25/20 at 22:43; Status DC Famotidine (Pepcid) 20 mg PRN BID PRN PO INDIGESTION Last administered on 11/28/20at 09:25; Start 11/25/20 at 22:45 Albuterol/ Ipratropium (Combivent Respimat 20-100 Mcg) 2 puff PRN Q6HRS PRN INH SHORTNESS OF BREATH Last administered on 11/26/20at 08:16; Start 11/25/20 at 23:00 Nicotine (Nicoderm Cq 21mg) 1 patch DAILY TD Last administered on 11/29/20at 07:27; Start 11/26/20 at 19:15 Pantoprazole Sodium (Protonix) 40 mg BIDAC PO Last administered on 11/29/20at 07:26; Start 11/26/20 at 19:15 Vancomycin HCl (Vancomycin Trough Level) 1 each 1X ONCE MC ; Start 11/27/20 at 11:00; Stop 11/27/20 at 11:01; Status Cancel Doxycycline Hyclate (Vibra-Tab) 100 mg BID PO Last administered on 11/29/20at 07:27; Start 11/28/20 at 09:00 Non-Formulary Medication 500 ea/ Sodium Chloride 100 ml @ 200 mls/hr Q6HRS IV Last administered on 11/29/20at 05:15; Start 11/28/20 at 12:00 Active Scripts Active Reported Albuterol Sulfate Neb Soln (Albuterol Sulfate) 1.25 Mg/3 Ml Vial.neb 1.25 Mg NEB PRN TID PRN Rifampin 300 Mg Capsule 2 Cap PO QTUTHSA Ethambutol Hcl 400 Mg Tablet 4 Tab PO QMWF Cetirizine Hcl 10 Mg Tablet 1 Tab PO DAILY Symbicort 160-4.5 Mcg Inhaler (Budesonide/Formoterol Fumarate) 10.2 Gm Hfa.aer.ad 2 Puff IH BID Azithromycin Tablet (Azithromycin) 500 Mg Tablet 1 Tab PO QTUTHSA Vitals/I & O Vital Sign - Last 24 Hours 11/28/20 11/28/20 11/28/20 11/28/20 11:00 15:00 19:00 19:50 Temp 99.1 99.1 99.4 99.1 99.1 99.4 Pulse 93 113 113 Resp 16 16 18 B/P (MAP) 106/66 (79) 103/63 (76) 130/74 (92) Pulse Ox 98 98 97 O2 Delivery Nasal Cannula Nasal Cannula Nasal Cannula Nasal Cannula O2 Flow Rate 2.0 2.0 2.0 2.0 11/28/20 11/29/20 11/29/20 22:55 03:19 07:00 Temp 98.0 98.5 96.5 98.0 98.5 96.5 Pulse 107 102 101 Resp 20 18 16 B/P (MAP) 124/81 (95) 114/70 (85) 104/70 (81) Pulse Ox 96 97 97 O2 Delivery Nasal Cannula Nasal Cannula Nasal Cannula O2 Flow Rate 2.0 2.0 2.0 Intake and Output 11/28/20 11/28/20 11/29/20 15:00 23:00 07:00 Intake Total 500 ml 240 ml 200 ml Output Total 600 ml 200 ml Balance -100 ml 40 ml 200 ml Justicifation of Admission Dx: Justifications for Admission: Justification of Admission Dx: Yes CHF: Cardiac Arrhythmias Respiratory Failure: Mechanical Ventilation CELIA GRANT MD Nov 29, 2020 10:42
[2020-11-29 11:00] VITALS: BP 111/74
--- NOTE | 2020-11-29 11:55 | PDOC ---
Infectious Disease Note Subjective: Subjective Patient feels better Fever improved has intermitent chills Vital Signs: Vital Signs Vital Signs Date Time Temp Pulse Resp B/P (MAP) Pulse Ox O2 Delivery O2 Flow Rate FiO2 11/29/20 07:00 96.5 101 16 104/70 (81) 97 Nasal Cannula 2.0 96.5 Physical Exam: PHYSICAL EXAM GENERAL: Alert, oriented x 3 male sitting upright in bed, in no acute distress. HEENT: Normocephalic, atraumatic, anicteric, edentulous. NECK: Supple, no JVD. LUNGS: Decreased breath sounds, bilateral crackles. Left chest tube present. ABDOMEN: Soft, bowel sounds present, nontender, nondistended. EXTREMITIES: No edema, no cyanosis. DERMATOLOGIC: Warm and dry. No generalized rash. NEUROLOGIC: Alert and oriented x 3, grossly nonfocal. PSYCHIATRIC: Cooperative, appropriate mood and affect. Medications: Inpatient Meds: Current Medications Medications (Trade) Dose Ordered Sig/Brianda Start Time Stop Time Status Last Admin Dose Admin Acetaminophen (Tylenol) 650 mg PRN Q4HRS PRN 11/25/20 17:00 11/26/20 17:21 650 MG Albuterol/ Ipratropium (Combivent Respimat 20-100 Mcg) 2 puff PRN Q6HRS PRN 11/25/20 23:00 11/26/20 08:16 2 PUFF Albuterol/ Ipratropium (Duoneb) 3 ml 1X ONCE 11/25/20 15:00 11/25/20 15:11 DC 11/25/20 17:07 3 ML Azithromycin (Zithromax) 500 mg QTUTHSA 11/27/20 16:00 11/27/20 16:35 500 MG Cetirizine HCl (ZyrTEC) 10 mg DAILY 11/26/20 09:00 11/29/20 07:27 10 MG Dexamethasone Sodium Phosphate (Decadron) 10 mg 1X ONCE 11/25/20 15:00 11/25/20 15:11 DC 11/25/20 15:22 10 MG Dextrose (Dextrose 50%-Water Syringe) 12.5 gm PRN Q15MIN PRN 11/25/20 17:00 Docusate Sodium (Colace) 100 mg PRN DAILY PRN 11/25/20 17:00 11/28/20 09:25 100 MG Doxycycline Hyclate (Vibra-Tab) 100 mg BID 11/28/20 09:00 11/29/20 07:27 100 MG Ethambutol HCl (Myambutol) 1,600 mg QMWF 11/26/20 16:00 11/28/20 16:21 1,600 MG Famotidine (Pepcid) 20 mg PRN BID PRN 11/25/20 22:45 11/28/20 09:25 20 MG Fentanyl Citrate (Fentanyl 2ml Vial) 100 mcg STK-MED ONCE 11/25/20 15:15 11/25/20 15:16 DC Info (CONTRAST GIVEN -- Rx MONITORING) 1 each PRN DAILY PRN 11/25/20 16:45 11/27/20 16:44 DC Iohexol (Omnipaque 350 Mg/ml) 100 ml 1X ONCE 11/25/20 16:30 11/25/20 16:31 DC 11/25/20 16:41 100 ML Ketorolac Tromethamine (Toradol 15mg Vial) 15 mg 1X ONCE 11/25/20 15:15 11/25/20 15:16 DC 11/25/20 15:24 15 MG Lidocaine HCl (Lidocaine 1% 20ml Vial) 20 ml STK-MED ONCE 11/25/20 15:15 11/25/20 15:16 DC Metronidazole 100 ml @ 100 mls/hr 1X ONCE 11/25/20 16:00 11/25/20 18:42 DC Morphine Sulfate (Morphine Sulfate) 2 mg PRN Q2HR PRN 11/25/20 04:00 11/26/20 03:59 DC Nicotine (Nicoderm Cq 21mg) 1 patch DAILY 11/26/20 19:15 11/29/20 07:27 1 PATCH Non-Formulary Medication 500 ea/ Sodium Chloride 100 ml @ 200 mls/hr Q6HRS 11/28/20 12:00 11/29/20 05:15 200 MLS/HR Ondansetron HCl (Zofran) 4 mg PRN Q6HRS PRN 11/25/20 17:00 11/27/20 02:06 4 MG Pantoprazole Sodium (Protonix) 40 mg BIDAC 11/26/20 19:15 11/29/20 07:26 40 MG Piperacillin Sod/ Tazobactam Sod (Zosyn Per Pharmacy) 1 each PRN DAILY PRN 11/25/20 18:45 11/28/20 11:39 DC Piperacillin Sod/ Tazobactam Sod 4.5 gm/Sodium Chloride 100 ml @ 200 mls/hr Q6HRS 11/25/20 19:00 11/28/20 11:39 DC 11/28/20 04:53 200 MLS/HR Rifampin (Rifadin) 600 mg QTUTHSA 11/27/20 16:00 11/27/20 16:35 600 MG Sennosides (Senna) 17.2 mg PRN BID PRN 11/25/20 17:00 Sodium Chloride 1,000 ml @ 1,000 mls/hr 1X ONCE 11/25/20 14:45 11/25/20 15:44 DC 11/25/20 15:49 1,000 MLS/HR Vancomycin HCl (Vanco Per Pharmacy) 1 each PRN DAILY PRN 11/25/20 18:45 11/27/20 10:49 DC 11/26/20 21:22 1 EACH Vancomycin HCl (Vancomycin Trough Level) 1 each 1X ONCE 11/27/20 11:00 11/27/20 11:01 Cancel Vancomycin HCl 1.75 gm/Sodium Chloride 500 ml @ 250 mls/hr 1X ONCE 11/25/20 19:00 11/25/20 20:59 DC 11/25/20 19:25 250 MLS/HR Vancomycin HCl 1 gm/Sodium Chloride 250 ml @ 250 mls/hr Q8H 11/26/20 03:30 11/27/20 10:47 DC 11/27/20 03:30 250 MLS/HR Labs: Lab Laboratory Tests Test 11/29/20 05:00 White Blood Count 8.1 x10^3/uL (4.0-11.0) Red Blood Count 3.75 x10^6/uL (4.30-5.70) Hemoglobin 12.5 g/dL (13.0-17.5) Hematocrit 36.7 % (39.0-53.0) Mean Corpuscular Volume 98 fL (79-100) Mean Corpuscular Hemoglobin 33 pg (25-35) Mean Corpuscular Hemoglobin Concent 34 g/dL (31-37) Red Cell Distribution Width 13.0 % (11.5-14.5) Platelet Count 419 x10^3/uL (140-400) Neutrophils (%) (Auto) 73 % (31-73) Lymphocytes (%) (Auto) 12 % (24-48) Monocytes (%) (Auto) 13 % (0-9) Eosinophils (%) (Auto) 2 % (0-3) Basophils (%) (Auto) 0 % (0-3) Neutrophils # (Auto) 5.8 x10^3/uL (1.8-7.7) Lymphocytes # (Auto) 1.0 x10^3/uL (1.0-4.8) Monocytes # (Auto) 1.0 x10^3/uL (0.0-1.1) Eosinophils # (Auto) 0.2 x10^3/uL (0.0-0.7) Basophils # (Auto) 0.0 x10^3/uL (0.0-0.2) Sodium Level 139 mmol/L (136-145) Potassium Level 3.5 mmol/L (3.5-5.1) Chloride Level 101 mmol/L (98-107) Carbon Dioxide Level 33 mmol/L (21-32) Anion Gap 5 (6-14) Blood Urea Nitrogen 8 mg/dL (8-26) Creatinine 0.7 mg/dL (0.7-1.3) Estimated GFR (Cockcroft-Gault) 115.8 Glucose Level 124 mg/dL (70-99) Calcium Level 8.7 mg/dL (8.5-10.1) Micro RUN DATE: 11/28/20 [facility] LAB *LIVE* PAGE 1 RUN TIME: 919 Specimen Inquiry PATIENT: CHINO GODINEZ ACCT: [id number] LOC: 2 [facility] U: [id number] AGE/SX: 60/M ROOM: [facility] RE11/25/[address]: LAURA PEREZ MD : 1960 BED: 1 DIS: STATUS: ADM IN TLOC: SPEC #: [id number] BAKARI: 11/25/20 STATUS: COMP REQ #: [id number] RECD: 11/25/[address]: TIRSO SANCHEZ DO SOURCE: SPUTUM ENTR: 11/25/20-1555 OT : MARIA GUADALUPE MARTELL SPDESC: INDUCED ORDERED: RESP CULTURE COMMENTS: Has specimen been collected/obtained? Y Procedure Result GRAM STAIN EVALUATION Final Final GRAM POSITIVE RODS:MODERATE GRAM POSITIVE COCCI:MANY SQUAMOUS EPI CELL:FEW PMN (WBCs):MANY Unless otherwise specified, Testing Performed by: [address] [id number] For Inquires, the Physician may contact the Microbiology department at [phone] RESPIRATORY CULTURE Final Final MODERATE Mixed upper respiratory elliot on 11/27/20 at 1042 MODERATE Mixed upper respiratory elliot on 11/28/20 at 0917 Unless otherwise specified, Testing Performed by: [address] [address] For Inquires, the Physician may contact the Microbiology department at [phone] - Objective: Assessment: 1. Fever, source Pulmonary. Pattern improving 2. Acute hypoxic respiratory failure. 3. Abnormal CT with worsening lung mass and air fluid level likely lung abscess. 4. Spontaneous pneumothorax left loculated fluid collection concern for empyema, status post chest tube placement 11/25/2020. Cultures not available 5. COVID-19 PUI. 6. Elevated D-dimer. 7. Severe protein-calorie malnutrition. 8. Tobacco dependence. 9. Alcohol dependence. 10. Weight loss. 11. History of pulmonary Mycobacterium avium complex, treated with more than 12 months of treatment with rifampin, azithromycin, and ethambutol. 13. History of multiple cultures in the past with Mycobacterium avium complex positive numerous times,Nocardia, Actinomyces, penicillium, Heena glabrata. Streptococcus pneumoniae, susceptible to ceftriaxone and Levaquin Plan: Plan of Care Cont Imipenem/ doxycycline Continue MAC treatment pending susceptibility results at this time. LT CTS in place per discussion with pulmonary ,fluid can be sent for studies from chamber Influenza screen negative. COVID-19 negative Follow up labs and cultures. Continue supportive care. Discussed with RN. D/W TORIBIO Zeng MD Nov 29, 2020 11:55
[2020-11-29] MEDS ORDERED: guaiFENesin DM 200MG/20MG 10 ML SYRUP PO PRN (12:30)
[2020-11-29 15:00] VITALS: BP 116/75
[2020-11-29] MEDS: AZITHROMYCIN 250 MG TABLET. PO SCH (16:33)
[2020-11-29] MEDS: riFAMpin 300 MG CAPSULE. PO SCH (16:33)
[2020-11-29 19:07] VITALS: BP 130/85
[2020-11-29 23:26] VITALS: BP 112/73
[2020-11-30] VITALS (7 sets, daily range): BP systolic 116–159; BP diastolic 70–96
[2020-11-30] MEDS: [UNRECOGNIZED DRUG - OTHER] IV SCH ×4 (04:58→23:38)
[2020-11-30] MEDS: NORMAL SALINE IV SCH ×4 (04:58→23:38)
[2020-11-30] MEDS: CETIRIZINE HCL 10 MG TABLET. PO SCH (07:11)
[2020-11-30] MEDS: DOXYCYCLINE HYCLATE 100 MG TABLET PO SCH ×2 (07:11→20:12)
[2020-11-30] MEDS: PANTOPRAZOLE 40 MG TABLET.DR. PO SCH ×2 (07:11→14:39)
[2020-11-30] MEDS: NICOTINE 21MG PATCH. TD SCH (07:12)
[2020-11-30] MEDS ORDERED: CILASTATIN SODIUM IV ONE (09:00)
[2020-11-30] MEDS ORDERED: IMIPENEM IV ONE (09:00)
--- NOTE | 2020-11-30 09:09 | RAD ---
Examination: XR CHEST 1V History: Reason: pneumothorax / Spl. Instructions: / History: Comparison/Correlation: 11/29/2020 Findings: Portable frontal view of the chest was obtained. Heart size is normal. No pneumothorax. Int erstitial infiltrates throughout the lung p[place] noted. Tubing overlying left mid thoracic level agai n seen. Opacification at the left midlung region again seen. Interstitial infiltrates again seen thro ughout the lung p[place]man. Pulmonary vasculature is borderline. Left apical pleural thickening again not ed. Impression: No significant change in pulmonary aeration. Infiltrates in other opacification stable. Electronically signed by: Aaron Nagy MD (11/30/2020 9:07 AM) [id number]
--- NOTE | 2020-11-30 11:14 | PDOC ---
Infectious Disease Note Subjective: Subjective Patient feels tired today Fever improved Vital Signs: Vital Signs Vital Signs Date Time Temp Pulse Resp B/P (MAP) Pulse Ox O2 Delivery O2 Flow Rate FiO2 11/30/20 06:21 97.8 103 16 119/78 (92) 94 Nasal Cannula 2.0 97.8 Physical Exam: PHYSICAL EXAM GENERAL: Alert, oriented x 3 male sitting upright in bed, in no acute distress. HEENT: Normocephalic, atraumatic, anicteric, edentulous. NECK: Supple, no JVD. LUNGS: Decreased breath sounds, bilateral crackles. Left chest tube present. ABDOMEN: Soft, bowel sounds present, nontender, nondistended. EXTREMITIES: No edema, no cyanosis. DERMATOLOGIC: Warm and dry. No generalized rash. NEUROLOGIC: Alert and oriented x 3, grossly nonfocal. PSYCHIATRIC: Cooperative, appropriate mood and affect. Medications: Inpatient Meds: Current Medications Medications (Trade) Dose Ordered Sig/Brianda Start Time Stop Time Status Last Admin Dose Admin Acetaminophen (Tylenol) 650 mg PRN Q4HRS PRN 11/25/20 17:00 11/26/20 17:21 650 MG Albuterol/ Ipratropium (Combivent Respimat 20-100 Mcg) 2 puff PRN Q6HRS PRN 11/25/20 23:00 11/26/20 08:16 2 PUFF Albuterol/ Ipratropium (Duoneb) 3 ml 1X ONCE 11/25/20 15:00 11/25/20 15:11 DC 11/25/20 17:07 3 ML Azithromycin (Zithromax) 500 mg QTUTHSA 11/27/20 16:00 11/29/20 16:33 500 MG Cetirizine HCl (ZyrTEC) 10 mg DAILY 11/26/20 09:00 11/30/20 07:11 10 MG Dexamethasone Sodium Phosphate (Decadron) 10 mg 1X ONCE 11/25/20 15:00 11/25/20 15:11 DC 11/25/20 15:22 10 MG Dextrose (Dextrose 50%-Water Syringe) 12.5 gm PRN Q15MIN PRN 11/25/20 17:00 Docusate Sodium (Colace) 100 mg PRN DAILY PRN 11/25/20 17:00 11/28/20 09:25 100 MG Doxycycline Hyclate (Vibra-Tab) 100 mg BID 11/28/20 09:00 11/30/20 07:11 100 MG Ethambutol HCl (Myambutol) 1,600 mg QMWF 11/26/20 16:00 11/28/20 16:21 1,600 MG Famotidine (Pepcid) 20 mg PRN BID PRN 11/25/20 22:45 11/28/20 09:25 20 MG Fentanyl Citrate (Fentanyl 2ml Vial) 100 mcg STK-MED ONCE 11/25/20 15:15 11/25/20 15:16 DC Guaifenesin (Robitussin Dm) 10 ml PRN Q6HRS PRN 11/29/20 12:30 11/30/20 07:11 10 ML Info (CONTRAST GIVEN -- Rx MONITORING) 1 each PRN DAILY PRN 11/25/20 16:45 11/27/20 16:44 DC Iohexol (Omnipaque 350 Mg/ml) 100 ml 1X ONCE 11/25/20 16:30 11/25/20 16:31 DC 11/25/20 16:41 100 ML Ketorolac Tromethamine (Toradol 15mg Vial) 15 mg 1X ONCE 11/25/20 15:15 11/25/20 15:16 DC 11/25/20 15:24 15 MG Lidocaine HCl (Lidocaine 1% 20ml Vial) 20 ml STK-MED ONCE 11/25/20 15:15 11/25/20 15:16 DC Metronidazole 100 ml @ 100 mls/hr 1X ONCE 11/25/20 16:00 11/25/20 18:42 DC Morphine Sulfate (Morphine Sulfate) 2 mg PRN Q2HR PRN 11/25/20 04:00 11/26/20 03:59 DC Nicotine (Nicoderm Cq 21mg) 1 patch DAILY 11/26/20 19:15 11/30/20 07:12 1 PATCH Non-Formulary Medication 500 ea/ Sodium Chloride 100 ml @ 200 mls/hr Q6HRS 11/28/20 12:00 11/30/20 04:58 200 MLS/HR Ondansetron HCl (Zofran) 4 mg PRN Q6HRS PRN 11/25/20 17:00 11/27/20 02:06 4 MG Pantoprazole Sodium (Protonix) 40 mg BIDAC 11/26/20 19:15 11/30/20 07:11 40 MG Piperacillin Sod/ Tazobactam Sod (Zosyn Per Pharmacy) 1 each PRN DAILY PRN 11/25/20 18:45 11/28/20 11:39 DC Piperacillin Sod/ Tazobactam Sod 4.5 gm/Sodium Chloride 100 ml @ 200 mls/hr Q6HRS 11/25/20 19:00 11/28/20 11:39 DC 11/28/20 04:53 200 MLS/HR Rifampin (Rifadin) 600 mg QTUTHSA 11/27/20 16:00 11/29/20 16:33 600 MG Sennosides (Senna) 17.2 mg PRN BID PRN 11/25/20 17:00 Sodium Chloride 1,000 ml @ 1,000 mls/hr 1X ONCE 11/25/20 14:45 11/25/20 15:44 DC 11/25/20 15:49 1,000 MLS/HR Vancomycin HCl (Vanco Per Pharmacy) 1 each PRN DAILY PRN 11/25/20 18:45 11/27/20 10:49 DC 11/26/20 21:22 1 EACH Vancomycin HCl (Vancomycin Trough Level) 1 each 1X ONCE 11/27/20 11:00 11/27/20 11:01 Cancel Vancomycin HCl 1.75 gm/Sodium Chloride 500 ml @ 250 mls/hr 1X ONCE 11/25/20 19:00 11/25/20 20:59 DC 11/25/20 19:25 250 MLS/HR Vancomycin HCl 1 gm/Sodium Chloride 250 ml @ 250 mls/hr Q8H 11/26/20 03:30 11/27/20 10:47 DC 11/27/20 03:30 250 MLS/HR Labs: Micro RUN DATE: 11/28/20 [facility] *LIVE* PAGE 1 RUN TIME: 919 Specimen Inquiry PATIENT: CHINO GODINEZ ACCT: [id number] LOC: [address] [place] [address] U: [id number] AGE/SX: 60/M ROOM: 244 RE11/25/[address]: LAURA PEREZ MD : 1960 BED: 1 DIS: STATUS: ADM IN TLOC: SPEC #: [id number] BAKARI: 11/25/20 STATUS: COMP REQ #: [id number] RECD: 11/25/[address]: TIRSO SANCHEZ DO SOURCE: SPUTUM ENTR: 11/25/20-[address]: MARIA GUADALUPE MARTELL SPDESC: INDUCED ORDERED: RESP CULTURE COMMENTS: Has specimen been collected/obtained? Y Procedure Result GRAM STAIN EVALUATION Final Final GRAM POSITIVE RODS:MODERATE GRAM POSITIVE COCCI:MANY SQUAMOUS EPI CELL:FEW PMN (WBCs):MANY Unless otherwise specified, Testing Performed by: [address] [address] For Inquires, the Physician may contact the Microbiology department at [phone] RESPIRATORY CULTURE Final Final MODERATE Mixed upper respiratory elliot on 11/27/20 at 1042 MODERATE Mixed upper respiratory elliot on 11/28/20 at 0917 Unless otherwise specified, Testing Performed by: [address] [address] For Inquires, the Physician may contact the Microbiology department at [phone] Objective: Assessment: 1. Fever, source Pulmonary. Pattern improving 2. Acute hypoxic respiratory failure. 3. Abnormal CT with worsening lung mass and air fluid level likely lung abscess. 4. Spontaneous pneumothorax left loculated fluid collection concern for empyem a, status post chest tube placement 11/25/2020. Cultures not available 5. COVID-19 PUI. 6. Elevated D-dimer. 7. Severe protein-calorie malnutrition. 8. Tobacco dependence. 9. Alcohol dependence. 10. Weight loss. 11. History of pulmonary Mycobacterium avium complex, treated with more than 12 months of treatment with rifampin, azithromycin, and ethambutol. 13. History of multiple cultures in the past with Mycobacterium avium complex positive numerous times,Nocardia, Actinomyces, penicillium, Heena glabrata. Streptococcus pneumoniae, susceptible to ceftriaxone and Levaquin Plan: Plan of Care Cont Imipenem/ doxycycline Continue MAC treatment pending susceptibility results at this time. CTS in place per discussion with Dr Andres castro sent from CTS Influenza screen negative. COVID-19 negative Follow up labs and cultures. Continue supportive care. Discussed with MEGHA. TORIBIO BONE MD Nov 30, 2020 11:14
--- NOTE | 2020-11-30 11:17 | PDOC ---
PROGRESS NOTES Date of Service: DATE: 11/30/20 TIME: 11:16 Chief Complaint Chief Complaint Images: Images CXR Impression: 1. Small left lateral loculated pneumothorax. 2. Increased left upper lung masslike consolidation with additional consolidations bilaterally, may represent pneumonia although malignancy is possible. Recommend CT to further evaluate. Also recommend comparison with prior biopsy results. 3. Small left pleural effusion. CXR Impression: 1. Chest tube placement with near complete evaluation of pneumothorax. There still some apical pneumothorax identified. There is persistent biapical thickening of the lungs with a stable left upper lobe mass. Pending chest CTA Assessment/Plan Assessment/Plan Acute respiratory distress due to left pneumothorax and CAP Left loculated pneumothorax concern for empyema status post chest tube placement 11/25/2020 Investigation for COVID-19 infection Elevated D-dimer Severe protein malnutrition Tobacco and alcohol misuse History of Mycobacterium avium complex, status post bronchoscopy on 11/07 with continue identification of MAC despite 12 months treatment with triple antibiotics. Chronic obstructive pulmonary disease. Tobacco dependent. History of alcoholism. Spontaneous pneumothorax, ETIOLOGY possibly cancer. Continue empiric antibiotics per ID --- follow cultures----Gram positive rods, Gram positive cocci on resp. culture PT/OT Admit to medicine for further management Pulmonology consult for chest tube management Pending blood and sputum cultures Continue IV empiric antibiotics for pneumonia Lovenox for DVT prophylaxis Regular diet Full code Discussed with RN and SW Disposition inpatient management as above Surrogate decision maker is the start pt on Imipenem,doxycycline cover Nocardia and Actinomyces. Continue MAC treatment pending susceptibility results at this time. Discontinue vancomycin due to high trough and Zosyn.. Cont Imipenem/ doxycycline The cavitary lesion seen in the left lung have increased in size with a air- fluid level noted within the left upper lobe cavity. Examination: XR CHEST 1V History: Reason: pneumothorax / Spl. Instructions: / History: Comparison/Correlation: 11/29/2020 Findings: Portable frontal view of the chest was obtained. Heart size is normal. No pneumothorax. Interstitial infiltrates throughout the lung pittman noted. Tubing overlying left mid thoracic level again seen. Opacification at the left midlung region again seen. Interstitial infiltrates again seen throughout the lung pittman. Pulmonary vasculature is borderline. Left apical pleural thickening again noted. Impression: No significant change in pulmonary aeration. Infiltrates in other opacification stable. Electronically signed by: Aaron Fuchs MD (11/30/2020 9:07 AM) [id number] DICTATED and SIGNED BY: AARON FUCHS MD DATE: 11/30/20 [id number] 0 26 min pt exam, chart review, > 50% of time spent with exam, chart review, pt care coordination Justifications for Admission Justifications for Admission Other Justification History of Present Illness History of Present Illness Chief Complaint: Chief Complain: SOB History of Present Illness: HPI: Patient is a 60-year-old male with past medical history of COPD, MAC infection in the past, recent bronchoscopy with Dr. Dowd on 11/11/2020 who presents with shortness of breath for the past week after getting the bronchoscopy. Pat ient follows with Dr. Dowd for the past 4 years patient has been on antibiotics for a year for MAC. Patient states also he does have productive cough. Denies fevers, chest pain, abdominal pain, diarrhea. ED course: Patient was found to have a pneumothorax loculated and the chest tube was placed in the ED 8 Uzbek catheter. Minimal amount of fluid and air was produced. Patient has copious purulent sputum being produced. Past Medical/Surgical History: PMH/PSH: Past Medical History: COPD, MAC disease; left lung mass Past Surgical History: 11/11/20 bronchoscopy; biopsy of lung Allergies: Allergies: Coded Allergies: I S O L A T I O N *CONTACT* (Verified Allergy, Unknown, 09/05/19) Meropenum resistant-strep pneumoniae No Known Medication Allergies (Verified Allergy, Unknown, 09/05/19) Family History: Family History: Reviewed with no relevant findings Social History: Social History: Smoking Status: Current Every Day Smoker Additional Information: quit 2 weeks ago Alcohol Use: Sober Vitals Vitals Vital Signs Date Time Temp Pulse Resp B/P (MAP) Pulse Ox O2 Delivery O2 Flow Rate FiO2 11/30/20 06:21 97.8 103 16 119/78 (92) 94 Nasal Cannula 2.0 97.8 Physical Exam Physical Exam GENERAL: Alert, oriented x 3 male sitting upright in bed, in no acute distress. HEENT: Normocephalic, atraumatic, anicteric, edentulous. NECK: Supple, no JVD. LUNGS: Decreased breath sounds, bilateral crackles. Left chest tube present. ABDOMEN: Soft, bowel sounds present, nontender, nondistended. EXTREMITIES: No edema, no cyanosis. DERMATOLOGIC: Warm and dry. No generalized rash. NEUROLOGIC: Alert and oriented x 3, grossly nonfocal. PSYCHIATRIC: Cooperative, appropriate mood and affect. General: Alert, Oriented X3, Cooperative, No acute distress Lungs: Crackles Abdomen: Soft Extremities: No cyanosis, No edema Labs LABS -- -------- Procedure Result GRAM STAIN EVALUATION Final Final GRAM POSITIVE RODS:MODERATE GRAM POSITIVE COCCI:MANY SQUAMOUS EPI CELL:FEW PMN (WBCs):MANY Unless otherwise specified, Testing Performed by: [address] [address] For Inquires, the Physician may contact the Microbiology department at [phone] RESPIRATORY CULTURE Final Final MODERATE Mixed upper respiratory elliot on 11/27/20 at 1042 MODERATE Mixed upper respiratory elliot on 11/28/20 at 0917 Unless otherwise specified, Testing Performed by: [address] [address] For Inquires, the Physician may contact the Microbiology department at [phone] Assessment and Plan Assessmemt and Plan Problems Medical Problems: (1) Multifocal pneumonia Status: Acute (2) Person under investigation for COVID-19 Status: Acute (3) Sepsis Status: Acute (4) Spontaneous pneumothorax Status: Acute Past Medical History: COPD, MAC disease; left lung mass Past Surgical History: 11/11/20 bronchoscopy; biopsy of lung Surgical procedure * chest tube placement Surgical procedure date * Nov 25, 2020 Usual Living Arrangement * Spouse Home Environment Type * mobile home trailer Physical Barriers in Home Environment * Single Step ADL Assistance Required Prior to Admission * Independent Mobility Assistance Required Prior to Admission * Independent Mobility devices used prior to admission * No Device Patient's IADLs Prior to Admission * Driving * House/lawn maintenance IADL Assistance Provided By * Spouse Other Prior Level of Function Information * Pt lives with his in a mobile home with 1 step. Pt was chopping wood the week of admit. Pt states completes home iadl tasks. Other Precautions * PUI; chest tube; monitor vitals Level of Consciousness * Alert Follows Direction * Complex Behavior * Cooperative Strength * LEs 5/5 Sitting Balance * 5 moves >2" all planes Standing Balance * 5 moves >2" all planes Supine to Sit Assistance Required * Independent Sit to Supine Assistance Required * Independent Transfer Assistance Required * Independent Transfer Type * Sit to Stand Transfer Comments * able to stand and walk in place without difficulty. able to maintain unilateral stance for at least 5 seconds each leg without difficulty. Pt denies deficits. Unable to water-seal chest tube due to pheumothorax but I encouraged pt to stand and walk in place occasionally. pt agrees. No need for further PT at this time. Ambulation Assistance Required * Independent Ambulation Assistive Device * No Device Ambulation Distance * walking in place = to about 50 ft Pt/caregiver agrees with plan of care/goals * Yes Patient condition at conclusion of therapy * Pt in bed * Call light in reach * Phone in reach * PtIn no apparent distress * Pt denies further needs No Further Skilled P.T. Intervention Required * Eval only-No PT Needs Discharge Recommendations * Home independent Discharge Recommendation Comments * no needs at this time. Thank you for this referral. Comment Review of Relevant I have reviewed the following items angelique (where applicable) has been applied. Labs Laboratory Tests Test 11/29/20 05:00 White Blood Count 8.1 x10^3/uL (4.0-11.0) Red Blood Count 3.75 x10^6/uL (4.30-5.70) Hemoglobin 12.5 g/dL (13.0-17.5) Hematocrit 36.7 % (39.0-53.0) Mean Corpuscular Volume 98 fL (79-100) Mean Corpuscular Hemoglobin 33 pg (25-35) Mean Corpuscular Hemoglobin Concent 34 g/dL (31-37) Red Cell Distribution Width 13.0 % (11.5-14.5) Platelet Count 419 x10^3/uL (140-400) Neutrophils (%) (Auto) 73 % (31-73) Lymphocytes (%) (Auto) 12 % (24-48) Monocytes (%) (Auto) 13 % (0-9) Eosinophils (%) (Auto) 2 % (0-3) Basophils (%) (Auto) 0 % (0-3) Neutrophils # (Auto) 5.8 x10^3/uL (1.8-7.7) Lymphocytes # (Auto) 1.0 x10^3/uL (1.0-4.8) Monocytes # (Auto) 1.0 x10^3/uL (0.0-1.1) Eosinophils # (Auto) 0.2 x10^3/uL (0.0-0.7) Basophils # (Auto) 0.0 x10^3/uL (0.0-0.2) Sodium Level 139 mmol/L (136-145) Potassium Level 3.5 mmol/L (3.5-5.1) Chloride Level 101 mmol/L (98-107) Carbon Dioxide Level 33 mmol/L (21-32) Anion Gap 5 (6-14) Blood Urea Nitrogen 8 mg/dL (8-26) Creatinine 0.7 mg/dL (0.7-1.3) Estimated GFR (Cockcroft-Gault) 115.8 Glucose Level 124 mg/dL (70-99) Calcium Level 8.7 mg/dL (8.5-10.1) Microbiology 11/25/20 Gram Stain Evaluation - Final, Complete 11/25/20 Respiratory Culture - Final, Complete 11/25/20 Blood Culture - Preliminary, Resulted NO GROWTH AFTER 4 DAYS Medications Current Medications Sodium Chloride 1,000 ml @ 1,000 mls/hr Q1H IV Last administered on 11/25/20at 15:27; Start 11/25/20 at 14:45; Stop 11/25/20 at 15:44; Status DC Sodium Chloride 1,000 ml @ 1,000 mls/hr 1X ONCE IV Last administered on 11/25/20at 15:49; Start 11/25/20 at 14:45; Stop 11/25/20 at 15:44; Status DC Vancomycin HCl (Vanco Per Pharmacy) 1 each PRN DAILY PRN MC SEE COMMENTS; Start 11/25/20 at 14:45; Stop 11/25/20 at 18:48; Status DC Piperacillin Sod/ Tazobactam Sod 4.5 gm/Sodium Chloride 100 ml @ 200 mls/hr 1X ONCE IV ; Start 11/25/20 at 14:45; Stop 11/25/20 at 18:42; Status DC Dexamethasone Sodium Phosphate (Decadron) 10 mg 1X ONCE IV Last administered on 11/25/20at 15:22; Start 11/25/20 at 15:00; Stop 11/25/20 at 15:11; Status DC Albuterol/ Ipratropium (Duoneb) 3 ml 1X ONCE NEB Last administered on 11/25/20at 17:07; Start 11/25/20 at 15:00; Stop 11/25/20 at 15:11; Status DC Fentanyl Citrate (Fentanyl 2ml Vial) 100 mcg 1X ONCE IVP Last administered on 11/25/20at 15:24; Start 11/25/20 at 15:15; Stop 11/25/20 at 15:41; Status DC Lidocaine HCl (Lidocaine 1% 20ml Vial) 20 ml 1X ONCE INJ Last administered on 11/25/20at 15:23; Start 11/25/20 at 15:15; Stop 11/25/20 at 15:41; Status DC Ketorolac Tromethamine (Toradol 15mg Vial) 15 mg 1X ONCE IVP Last administered on 11/25/20at 15:24; Start 11/25/20 at 15:15; Stop 11/25/20 at 15:16; Status DC Vancomycin HCl 1.75 gm/Sodium Chloride 500 ml @ 250 mls/hr 1X ONCE IV ; Start 11/25/20 at 15:30; Stop 11/25/20 at 18:42; Status DC Lidocaine HCl (Lidocaine 1% 20ml Vial) 20 ml STK-MED ONCE .ROUTE ; Start 11/25/20 at 15:15; Stop 11/25/20 at 15:16; Status DC Fentanyl Citrate (Fentanyl 2ml Vial) 100 mcg STK-MED ONCE .ROUTE ; Start 11/25/20 at 15:15; Stop 11/25/20 at 15:16; Status DC Azithromycin 250 ml @ 250 mls/hr 1X ONCE IV Last administered on 11/25/20at 15:48; Start 11/25/20 at 15:30; Stop 11/25/20 at 16:29; Status DC Metronidazole 100 ml @ 100 mls/hr 1X ONCE IV ; Start 11/25/20 at 16:00; Stop 11/25/20 at 18:42; Status DC Iohexol (Omnipaque 350 Mg/ml) 100 ml 1X ONCE IV Last administered on 11/25/20at 16:41; Start 11/25/20 at 16:30; Stop 11/25/20 at 16:31; Status DC Info (CONTRAST GIVEN -- Rx MONITORING) 1 each PRN DAILY PRN MC SEE COMMENTS; Start 11/25/20 at 16:45; Stop 11/27/20 at 16:44; Status DC Sennosides (Senna) 17.2 mg PRN BID PRN PO CONSTIPATION; Start 11/25/20 at 17:00 Docusate Sodium (Colace) 100 mg PRN DAILY PRN PO HARD STOOLS Last administered on 11/28/20at 09:25; Start 11/25/20 at 17:00 Ondansetron HCl (Zofran) 4 mg PRN Q6HRS PRN IVP NAUSEA/VOMITING Last administered on 11/27/20at 02:06; Start 11/25/20 at 17:00 Dextrose (Dextrose 50%-Water Syringe) 12.5 gm PRN Q15MIN PRN IV SEE COMMENTS; Start 11/25/20 at 17:00 Acetaminophen (Tylenol) 650 mg PRN Q4HRS PRN PO TEMP OVER 100.4F OR MILD PAIN Last administered on 11/26/20at 17:21; Start 11/25/20 at 17:00 Morphine Sulfate (Morphine Sulfate) 1 mg PRN Q1HR PRN IV PAIN - SEE COMMENTS Last administered on 11/26/20at 08:33; Start 11/25/20 at 17:00 Morphine Sulfate (Morphine Sulfate) 2 mg PRN Q2HR PRN IV SEVERE PAIN 7-10; Start 11/25/20 at 04:00; Stop 11/26/20 at 03:59; Status DC Vancomycin HCl (Vanco Per Pharmacy) 1 each PRN DAILY PRN MC SEE COMMENTS Last administered on 11/26/20at 21:22; Start 11/25/20 at 18:45; Stop 11/27/20 at 10:49; Status DC Piperacillin Sod/ Tazobactam Sod (Zosyn Per Pharmacy) 1 each PRN DAILY PRN MC SEE COMMENTS; Start 11/25/20 at 18:45; Stop 11/28/20 at 11:39; Status DC Vancomycin HCl 1.75 gm/Sodium Chloride 500 ml @ 250 mls/hr 1X ONCE IV Last administered on 11/25/20at 19:25; Start 11/25/20 at 19:00; Stop 11/25/20 at 20:59; Status DC Piperacillin Sod/ Tazobactam Sod 4.5 gm/Sodium Chloride 100 ml @ 200 mls/hr Q6HRS IV Last administered on 11/28/20at 04:53; Start 11/25/20 at 19:00; Stop 11/28/20 at 11:39; Status DC Vancomycin HCl 1 gm/Sodium Chloride 250 ml @ 250 mls/hr Q8H IV Last adm inistered on 11/27/20at 03:30; Start 11/26/20 at 03:30; Stop 11/27/20 at 10:47; Status DC Vancomycin HCl (Vancomycin Trough Level) 1 each 1X ONCE MC ; Start 11/26/20 at 19:00; Stop 11/26/20 at 19:01; Status DC Cetirizine HCl (ZyrTEC) 10 mg DAILY PO Last administered on 11/30/20at 07:11; Start 11/26/20 at 09:00 Ethambutol HCl (Myambutol) 1,600 mg QMWF PO Last administered on 11/28/20at 16:21; Start 11/26/20 at 16:00 Rifampin (Rifadin) 600 mg QTUTHSA PO Last administered on 11/29/20at 16:33; Start 11/27/20 at 16:00 Azithromycin (Zithromax) 500 mg QTUTHSA PO Last administered on 11/29/20 16:33; Start 11/27/20 at 16:00 Famotidine (Pepcid) 20 mg PRN BID PO ; Start 11/25/20 at 22:45; Stop 11/25/20 at 22:43; Status DC Famotidine (Pepcid) 20 mg PRN BID PRN PO INDIGESTION Last administered on 11/28/20 09:25; Start 11/25/20 at 22:45 Albuterol/ Ipratropium (Combivent Respimat 20-100 Mcg) 2 puff PRN Q6HRS PRN INH SHORTNESS OF BREATH Last administered on 11/26/20at 08:16; Start 11/25/20 at 23:00 Nicotine (Nicoderm Cq 21mg) 1 patch DAILY TD Last administered on 11/30/20 07:12; Start 11/26/20 at 19:15 Pantoprazole Sodium (Protonix) 40 mg BIDAC PO Last administered on 11/30/20 07:11; Start 11/26/20 at 19:15 Vancomycin HCl (Vancomycin Trough Level) 1 each 1X ONCE MC ; Start 11/27/20 at 11:00; Stop 11/27/20 at 11:01; Status Cancel Doxycycline Hyclate (Vibra-Tab) 100 mg BID PO Last administered on 11/30/20 07:11; Start 11/28/20 at 09:00 Non-Formulary Medication 500 ea/ Sodium Chloride 100 ml @ 200 mls/hr Q6HRS IV Last administered on 11/30/20at 04:58; Start 11/28/20 at 12:00 Guaifenesin (Robitussin Dm) 10 ml PRN Q6HRS PRN PO COUGH Last administered on 11/30/20 07:11; Start 11/29/20 at 12:30 Active Scripts Active Reported Albuterol Sulfate Neb Soln (Albuterol Sulfate) 1.25 Mg/3 Ml Vial.neb 1.25 Mg NEB PRN TID PRN Rifampin 300 Mg Capsule 2 Cap PO QTUTHSA Ethambutol Hcl 400 Mg Tablet 4 Tab PO QMWF Cetirizine Hcl 10 Mg Tablet 1 Tab PO DAILY Symbicort 160-4.5 Mcg Inhaler (Budesonide/Formoterol Fumarate) 10.2 Gm Hfa.aer.ad 2 Puff IH BID Azithromycin Tablet (Azithromycin) 500 Mg Tablet 1 Tab PO QTUTHSA Vitals/I & O Vital Sign - Last 24 Hours 11/29/20 11/29/20 11/29/20 11/29/20 15:00 19:07 19:29 23:26 Temp 97.7 99.4 97.7 99.4 Pulse 102 103 97 Resp 16 16 16 B/P (MAP) 116/75 (89) 130/85 (100) 112/73 (86) Pulse Ox 99 97 95 O2 Delivery Nasal Cannula Nasal Cannula Nasal Cannula Nasal Cannula O2 Flow Rate 2.0 2.0 2.0 2.0 11/30/20 11/30/20 03:50 06:21 Temp 98.0 97.8 98.0 97.8 Pulse 103 103 Resp 16 16 B/P (MAP) 128/83 (98) 119/78 (92) Pulse Ox 95 94 O2 Delivery Nasal Cannula Nasal Cannula O2 Flow Rate 2.0 2.0 Intake and Output 11/29/20 11/29/20 11/30/20 15:00 23:00 07:00 Intake Total 0 ml 600 ml Output Total 1075 ml Balance 0 ml -475 ml Justicifation of Admission Dx: Justifications for Admission: Justification of Admission Dx: Yes CHF: Cardiac Arrhythmias Respiratory Failure: Mechanical Ventilation CELIA GRANT MD Nov 30, 2020 11:17
--- NOTE | 2020-11-30 14:17 | PDOC ---
PULMONARY PROGRESS NOTES DATE: 11/30/20 TIME: 14:16 Subjective Patient is currently on 2 L nasal cannula Still had productive cough No other concerns from nursing Vitals Vital Signs Date Time Temp Pulse Resp B/P (MAP) Pulse Ox O2 Delivery O2 Flow Rate FiO2 11/30/20 11:00 98.0 80 20 118/80 (93) 97 Nasal Cannula 2.5 98.0 Comments Patient seen during pandemic, visual exam performed ROS: No Nausea, No Chest Pain, No Abdominal Pain, No Increase Cough General: Alert Lungs: Crackles Cardiovascular: S1, S2 Abdomen: Soft, Non-tender Neuro Exam: Alert, Oriented Extremities: No Edema Skin: Warm, Dry Labs Laboratory Tests Test 11/29/20 05:00 White Blood Count 8.1 x10^3/uL (4.0-11.0) Red Blood Count 3.75 x10^6/uL (4.30-5.70) Hemoglobin 12.5 g/dL (13.0-17.5) Hematocrit 36.7 % (39.0-53.0) Mean Corpuscular Volume 98 fL (79-100) Mean Corpuscular Hemoglobin 33 pg (25-35) Mean Corpuscular Hemoglobin Concent 34 g/dL (31-37) Red Cell Distribution Width 13.0 % (11.5-14.5) Platelet Count 419 x10^3/uL (140-400) Neutrophils (%) (Auto) 73 % (31-73) Lymphocytes (%) (Auto) 12 % (24-48) Monocytes (%) (Auto) 13 % (0-9) Eosinophils (%) (Auto) 2 % (0-3) Basophils (%) (Auto) 0 % (0-3) Neutrophils # (Auto) 5.8 x10^3/uL (1.8-7.7) Lymphocytes # (Auto) 1.0 x10^3/uL (1.0-4.8) Monocytes # (Auto) 1.0 x10^3/uL (0.0-1.1) Eosinophils # (Auto) 0.2 x10^3/uL (0.0-0.7) Basophils # (Auto) 0.0 x10^3/uL (0.0-0.2) Sodium Level 139 mmol/L (136-145) Potassium Level 3.5 mmol/L (3.5-5.1) Chloride Level 101 mmol/L (98-107) Carbon Dioxide Level 33 mmol/L (21-32) Anion Gap 5 (6-14) Blood Urea Nitrogen 8 mg/dL (8-26) Creatinine 0.7 mg/dL (0.7-1.3) Estimated GFR (Cockcroft-Gault) 115.8 Glucose Level 124 mg/dL (70-99) Calcium Level 8.7 mg/dL (8.5-10.1) Medications Active Scripts Medications Dose Route/Sig Max Daily Dose Days Date Category Albuterol Sulfate Neb Soln (Albuterol Sulfate) 1.25 Mg/3 Ml Vial.neb 1.25 Mg NEB PRN TID PRN 11/25/20 Reported Rifampin 300 Mg Capsule 2 Cap PO QTUTHSA 11/25/20 Reported Ethambutol Hcl 400 Mg Tablet 4 Tab PO QMWF 11/25/20 Reported Cetirizine Hcl 10 Mg Tablet 1 Tab PO DAILY 09/05/19 Reported Symbicort 160-4.5 Mcg Inhaler (Budesonide/Formoterol Fumarate) 10.2 Gm Hfa.aer.ad 2 Puff IH BID 06/20/19 Reported Azithromycin Tablet (Azithromycin) 500 Mg Tablet 1 Tab PO QTUTHSA 11/25/20 Reported Comments CTA chest IMPRESSION: 1. No pulmonary embolus identified within the main, lobar or segmental pulmonary arteries. 2. When compared to the prior exam in May there has been progressive consolidation in the right upper lobe, left upper lobe and left lower lobe. This may represent worsening infectious/inflammatory process. Underlying malignancy is difficult to exclude. 3. The cavitary lesion seen in the left lung have increased in size with a air- fluid level noted within the left upper lobe cavity. CXR 11/27 Impression: 1. Decreased left pneumothorax. Slight retraction of left chest tube. 2. Decreased left upper lung masslike consolidation. 3. Additional multifocal opacities, unchanged. CXR 11/29/20 IMPRESSION: Stable patchy bilateral consolidations. CXR 11/30/20 Impression: No significant change in pulmonary aeration. Infiltrates in other opacification stable. Impression . IMPRESSION: 1. Acute hypoxemic respiratory failure. 2. Abnormal chest x-ray revealing increasing left upper lobe mass. 3. History of Mycobacterium avium complex, status post bronchoscopy on 11/07 with continue identification of MAC despite 12 months treatment with triple antibiotics. 4. Chronic obstructive pulmonary disease. 5. Tobacco dependent. 6. History of alcoholism. 7. Spontaneous pneumothorax, suspect from disease along with possibly cancer. Plan . PLAN: Continue supplemental oxygen to keep oxygen saturations greater than 92%, remains on 2 liters N/C Left chest tube DC'd Daily CXR-- reviewed Influenza negative and COVID-[address] of chest reviewed: Negative for pulmonary embolism, ongoing/worsening infectious/inflammatory process, cavitary lesion in the left lung increased in size with air-fluid level noted with the left upper lobe cavity Continue bronchodilators Continue empiric antibiotics per ID --- follow cultures----Gram positive rods, Gram positive cocci on resp. 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
[2020-12-01 03:36] VITALS: BP 122/72
[2020-12-01] MEDS: NORMAL SALINE IV SCH ×4 (05:07→23:04)
[2020-12-01] MEDS: [UNRECOGNIZED DRUG - OTHER] IV SCH (05:07)
[2020-12-01] MEDS ORDERED: IMIPENEM IV ONE (06:00)
[2020-12-01] MEDS ORDERED: CILASTATIN SODIUM IV ONE (06:00)
[2020-12-01 07:00] VITALS: BP 109/74
[2020-12-01] MEDS: CETIRIZINE HCL 10 MG TABLET. PO SCH (07:46)
[2020-12-01] MEDS: DOXYCYCLINE HYCLATE 100 MG TABLET PO SCH ×2 (07:47→20:50)
[2020-12-01] MEDS: PANTOPRAZOLE 40 MG TABLET.DR. PO SCH ×2 (07:47→13:04)
[2020-12-01] MEDS: NICOTINE 21MG PATCH. TD SCH (07:48)
--- NOTE | 2020-12-01 09:58 | PDOC ---
Infectious Disease Note Subjective Subjective pt is feeling better, ROS ROS no n/v/d/sob Vital Sign Vital Signs Vital Signs Date Time Temp Pulse Resp B/P (MAP) Pulse Ox O2 Delivery O2 Flow Rate FiO2 12/01/20 08:00 Nasal Cannula 2.5 12/01/20 07:00 97.6 106 20 109/74 (86) 95 97.6 Physical Exam PHYSICAL EXAM GENERAL: Alert, oriented x 3 male sitting upright in bed, in no acute distress. HEENT: Normocephalic, atraumatic, anicteric, edentulous. NECK: Supple, no JVD. LUNGS: Decreased breath sounds, bilateral crackles. Left chest tube present. ABDOMEN: Soft, bowel sounds present, nontender, nondistended. EXTREMITIES: No edema, no cyanosis. DERMATOLOGIC: Warm and dry. No generalized rash. NEUROLOGIC: Alert and oriented x 3, grossly nonfocal. PSYCHIATRIC: Cooperative, appropriate mood and affect. Labs Micro chest fluid neg Objective Assessment 1. Fever, source Pulmonary. Pattern improving 2. Acute hypoxic respiratory failure. 3. Abnormal CT with worsening lung mass and air fluid level likely lung abs cess. 4. Spontaneous pneumothorax left loculated fluid collection concern for empyema, status post chest tube placement 11/25/2020. Cultures not available 5. COVID-19 PUI. 6. Elevated D-dimer. 7. Severe protein-calorie malnutrition. 8. Tobacco dependence. 9. Alcohol dependence. 10. Weight loss. 11. History of pulmonary Mycobacterium avium complex, treated with more than 12 months of treatment with rifampin, azithromycin, and ethambutol. 13. History of multiple cultures in the past with Mycobacterium avium complex positive numerous times,Nocardia, Actinomyces, penicillium, Heena glabrata. Streptococcus pneumoniae, susceptible to ceftriaxone and Levaquin Plan Plan of Care Cont Imipenem/ doxycycline Continue MAC treatment pending susceptibility results at this time. LT CTS in place per discussion with Dr Campos fluid sent from CTS Influenza screen negative. COVID-19 negative Follow up labs and cultures. Continue supportive care. Discussed with MEGHA. OUSMANE BONE MD Dec 01, 2020 09:58
[2020-12-01 10:00] LABS: BASO % 0 % (0-3); EOS # 0.1 x10^3/uL (0.0-0.7); EOS % 2 % (0-3); HEMATOCRIT 39.7 % (39.0-53.0); HEMOGLOBIN 13.5 g/dL (13.0-17.5); LYMPH # 1.2 x10^3/uL (1.0-4.8); LYMPH % 15 % (24-48); MEAN CORPUSCULAR HEMOGLOBIN 33 pg (25-35); MEAN CORPUSCULAR HGB CONC 34 g/dL (31-37); MEAN CORPUSCULAR VOLUME 98 fL (79-100); MONO % 12 % (0-9); NEUT # 5.9 x10^3/uL (1.8-7.7); NEUT % 72 % (31-73); PLATELET COUNT 512 x10^3/uL (140-400); RED BLOOD COUNT 4.06 x10^6/uL (4.30-5.70); RED CELL DISTRIBUTION WIDTH 13.2 % (11.5-14.5); WHITE BLOOD COUNT 8.3 x10^3/uL (4.0-11.0)
[2020-12-01 10:18] LABS: CREATININE 0.8 mg/dL (0.7-1.3); GFR 99.3
--- NOTE | 2020-12-01 10:43 | RAD ---
EXAM: Chest, single view. HISTORY: Pneumothorax. COMPARISON: 11/30/2020 FINDINGS: A frontal view of the chest obtained. There has been no change in a thick-walled cavitary l esion within the left upper lobe. There has been removal of a left adrenal catheter. There is a stabl e small loculated left lateral pleural fluid collection or pleural thickening. There is stable massli ke consolidation within the bilateral upper lobes with architectural distortion and pleural parenchym al scarring. There is emphysema. There is stable scattered nodular opacities throughout the bilateral lower lobes. There are calcified granulomas. The heart is normal in size. IMPRESSION: 1. Interval suspected left pleural drainage catheter removal. There is a thick-walled cavitary lesion within the left upper lobe and there is a suspected loculated left pleural fluid collection or pleur al thickening which is unchanged radiographically. No pneumothorax is seen. 2. Bilateral upper lobe masslike consolidation with architectural distortion and pleural parenchymal scarring. The possibility of underlying neoplasm is not excluded. 3. Emphysema and scattered nodular opacities within the remainder of both lungs, characterized on the prior CT. Electronically signed by: Danika Curtis MD (12/01/2020 10:41 AM) [id number]
[2020-12-01 11:20] VITALS: BP 108/73
--- NOTE | 2020-12-01 11:29 | PDOC ---
PULMONARY PROGRESS NOTES DATE: 12/01/20 TIME: 11:29 Subjective Patient is currently on 2 L nasal cannula no increase in cough or SOA No other concerns from nursing Vitals Vital Signs Date Time Temp Pulse Resp B/P (MAP) Pulse Ox O2 Delivery O2 Flow Rate FiO2 12/01/20 11:20 97.8 98 20 108/73 (85) 95 Nasal Cannula 2.0 97.8 Comments Patient seen during ID pandemic, visual exam performed ROS: No Nausea, No Chest Pain, No Abdominal Pain, No Increase Cough General: Alert Lungs: Crackles Cardiovascular: S1, S2 Abdomen: Soft, Non-tender Neuro Exam: Alert, Oriented Extremities: No Edema Skin: Warm, Dry Labs Laboratory Tests Test 12/01/20 08:20 White Blood Count 8.3 x10^3/uL (4.0-11.0) Red Blood Count 4.06 x10^6/uL (4.30-5.70) Hemoglobin 13.5 g/dL (13.0-17.5) Hematocrit 39.7 % (39.0-53.0) Mean Corpuscular Volume 98 fL (79-100) Mean Corpuscular Hemoglobin 33 pg (25-35) Mean Corpuscular Hemoglobin Concent 34 g/dL (31-37) Red Cell Distribution Width 13.2 % (11.5-14.5) Platelet Count 512 x10^3/uL (140-400) Neutrophils (%) (Auto) 72 % (31-73) Lymphocytes (%) (Auto) 15 % (24-48) Monocytes (%) (Auto) 12 % (0-9) Eosinophils (%) (Auto) 2 % (0-3) Basophils (%) (Auto) 0 % (0-3) Neutrophils # (Auto) 5.9 x10^3/uL (1.8-7.7) Lymphocytes # (Auto) 1.2 x10^3/uL (1.0-4.8) Monocytes # (Auto) 1.0 x10^3/uL (0.0-1.1) Eosinophils # (Auto) 0.1 x10^3/uL (0.0-0.7) Basophils # (Auto) 0.0 x10^3/uL (0.0-0.2) Sodium Level 134 mmol/L (136-145) Potassium Level 4.0 mmol/L (3.5-5.1) Chloride Level 97 mmol/L (98-107) Carbon Dioxide Level 29 mmol/L (21-32) Anion Gap 8 (6-14) Blood Urea Nitrogen 8 mg/dL (8-26) Creatinine 0.8 mg/dL (0.7-1.3) Estimated GFR (Cockcroft-Gault) 99.3 Glucose Level 141 mg/dL (70-99) Calcium Level 9.0 mg/dL (8.5-10.1) Laboratory Tests Test 12/01/20 08:20 White Blood Count 8.3 x10^3/uL (4.0-11.0) Red Blood Count 4.06 x10^6/uL (4.30-5.70) Hemoglobin 13.5 g/dL (13.0-17.5) Hematocrit 39.7 % (39.0-53.0) Mean Corpuscular Volume 98 fL (79-100) Mean Corpuscular Hemoglobin 33 pg (25-35) Mean Corpuscular Hemoglobin Concent 34 g/dL (31-37) Red Cell Distribution Width 13.2 % (11.5-14.5) Platelet Count 512 x10^3/uL (140-400) Neutrophils (%) (Auto) 72 % (31-73) Lymphocytes (%) (Auto) 15 % (24-48) Monocytes (%) (Auto) 12 % (0-9) Eosinophils (%) (Auto) 2 % (0-3) Basophils (%) (Auto) 0 % (0-3) Neutrophils # (Auto) 5.9 x10^3/uL (1.8-7.7) Lymphocytes # (Auto) 1.2 x10^3/uL (1.0-4.8) Monocytes # (Auto) 1.0 x10^3/uL (0.0-1.1) Eosinophils # (Auto) 0.1 x10^3/uL (0.0-0.7) Basophils # (Auto) 0.0 x10^3/uL (0.0-0.2) Sodium Level 134 mmol/L (136-145) Potassium Level 4.0 mmol/L (3.5-5.1) Chloride Level 97 mmol/L (98-107) Carbon Dioxide Level 29 mmol/L (21-32) Anion Gap 8 (6-14) Blood Urea Nitrogen 8 mg/dL (8-26) Creatinine 0.8 mg/dL (0.7-1.3) Estimated GFR (Cockcroft-Gault) 99.3 Glucose Level 141 mg/dL (70-99) Calcium Level 9.0 mg/dL (8.5-10.1) Medications Active Scripts Medications Dose Route/Sig Max Daily Dose Days Date Category Albuterol Sulfate Neb Soln (Albuterol Sulfate) 1.25 Mg/3 Ml Vial.neb 1.25 Mg NEB PRN TID PRN 11/25/20 Reported Rifampin 300 Mg Capsule 2 Cap PO QTUTHSA 11/25/20 Reported Ethambutol Hcl 400 Mg Tablet 4 Tab PO QMWF 11/25/20 Reported Cetirizine Hcl 10 Mg Tablet 1 Tab PO DAILY 09/05/19 Reported Symbicort 160-4.5 Mcg Inhaler (Budesonide/Formoterol Fumarate) 10.2 Gm Hfa.aer.ad 2 Puff IH BID 06/20/19 Reported Azithromycin Tablet (Azithromycin) 500 Mg Tablet 1 Tab PO QTUTHSA 11/25/20 Reported Comments CTA chest IMPRESSION: 1. No pulmonary embolus identified within the main, lobar or segmental pulmonary arteries. 2. When compared to the prior exam in May there has been progressive consolidation in the right upper lobe, left upper lobe and left lower lobe. This may represent worsening infectious/inflammatory process. Underlying malignancy is difficult to exclude. 3. The cavitary lesion seen in the left lung have increased in size with a air- fluid level noted within the left upper lobe cavity. CXR 12/01/20 IMPRESSION: 1. Interval suspected left pleural drainage catheter removal. There is a thick- walled cavitary lesion within the left upper lobe and there is a suspected loculated left pleural fluid collection or pleural thickening which is unchanged radiographically. No pneumothorax is seen. 2. Bilateral upper lobe masslike consolidation with architectural distortion and pleural parenchymal scarring. The possibility of underlying neoplasm is not excluded. 3. Emphysema and scattered nodular opacities within the remainder of both lungs, characterized on the prior CT. Impression . IMPRESSION: 1. Acute hypoxemic respiratory failure. 2. Abnormal chest x-ray revealing increasing left upper lobe mass. 3. History of Mycobacterium avium complex, status post bronchoscopy on 11/07 with continue identification of MAC despite 12 months treatment with triple antibiotics. 4. Chronic obstructive pulmonary disease. 5. Tobacco dependent. 6. History of alcoholism. 7. Spontaneous pneumothorax, suspect from disease along with possibly cancer. Plan . PLAN: Continue supplemental oxygen to keep oxygen saturations greater than 92%, remains on 2 liters N/C Influenza negative and COVID-[address] of chest reviewed: Negative for pulmonary embolism, ongoing/worsening infectious/inflammatory process, cavitary lesion in the left lung increased in size with air-fluid level noted with the left upper lobe cavity Continue bronchodilators Continue empiric antibiotics per ID --- follow cultures----Gram positive rods, Gram positive cocci on resp. culture, previous cultures showed MAC infection and Nocardiosis and Actinomyces-- hopefully transition to po soon for possible discharge PT/OT DVT/GI prophylaxis Discussed with HAILEE BORDEN MD Dec 01, 2020 11:29
--- NOTE | 2020-12-01 12:31 | NUR ---
SS following up with discharge planning. SS reviewed pt chart and discussed with pt RN. Pt is currently requiring oxygen. COVID19 negative. PT/OT recommended home. Chest tube removed yesterday. Pt on IV Imipenem. SS will continue to follow for discharge planning.
[2020-12-01] MEDS: ETHAMBUTOL HCL 400 MG TABLET PO SCH (13:05)
[2020-12-01] MEDS: CILASTATIN SODIUM IV SCH ×3 (13:06→23:04)
[2020-12-01] MEDS: IMIPENEM IV SCH ×3 (13:06→23:04)
--- NOTE | 2020-12-01 14:51 | PDOC ---
[facility] PROGRESS NOTE Date of Service DOS: DATE: 12/01/20 TIME: 14:49 Chief Complaint Chief Complaint Images: Images CXR Impression: 1. Small left lateral loculated pneumothorax. 2. Increased left upper lung masslike consolidation with additional consolidations bilaterally, may represent pneumonia although malignancy is possible. Recommend CT to further evaluate. Also recommend comparison with prior biopsy results. 3. Small left pleural effusion. CXR Impression: 1. Chest tube placement with near complete evaluation of pneumothorax. There still some apical pneumothorax identified. There is persistent biapical thickening of the lungs with a stable left upper lobe mass. Pending chest CTA Assessment/Plan Assessment/Plan Acute respiratory distress due to left pneumothorax and CAP Left loculated pneumothorax concern for empyema status post chest tube placement 11/25/2020 Investigation for COVID-19 infection Elevated D-dimer Severe protein malnutrition Tobacco and alcohol misuse History of Mycobacterium avium complex, status post bronchoscopy on 11/07 with continue identification of MAC despite 12 months treatment with triple antibiotics. Chronic obstructive pulmonary disease. Tobacco dependent. History of alcoholism. Spontaneous pneumothorax, ETIOLOGY possibly cancer. Continue empiric antibiotics per ID --- follow cultures----Gram positive rods, Gram positive cocci on resp. culture PT/OT Admit to medicine for further management Pulmonology consult for chest tube management Pending blood and sputum cultures Continue IV empiric antibiotics for pneumonia Lovenox for DVT prophylaxis Regular diet Full code Discussed with RN and SW Disposition inpatient management as above Surrogate decision maker is the start pt on Imipenem,doxycycline cover Nocardia and Actinomyces. Continue MAC treatment pending susceptibility results at this time. Discontinue vancomycin due to high trough and Zosyn.. Cont Imipenem/ doxycycline The cavitary lesion seen in the left lung have increased in size with a air- fluid level noted within the left upper lobe cavity. Examination: XR CHEST 1V History: Reason: pneumothorax / Spl. Instructions: / History: Comparison/Correlation: 11/29/2020 Findings: Portable frontal view of the chest was obtained. Heart size is normal. No pneumothorax. Interstitial infiltrates throughout the lung pittman noted. Tubing overlying left mid thoracic level again seen. Opacification at the left midlung region again seen. Interstitial infiltrates again seen throughout the lung pittman. Pulmonary vasculature is borderline. Left apical pleural thickening again noted. Impression: No significant change in pulmonary aeration. Infiltrates in other opacification stable. Electronically signed by: Aaron Fuchs MD (11/30/2020 9:07 AM) [id number] DICTATED and SIGNED BY: AARON FUCHS MD DATE: 11/30/20 [id number] 0 26 min pt exam, chart review, > 50% of time spent with exam, chart review, pt care coordination Justifications for Admission Justifications for Admission Other Justification History of Present Illness History of Present Illness Patient is a 60-year-old male with past medical history of COPD, MAC infection in the past, recent bronchoscopy with Dr. Dowd on 11/11/2020 who presents with shortness of breath for the past week after getting the bronchoscopy. Patient follows with Dr. Dowd for the past 4 years patient has been on antibiotics for a year for MAC. Patient states also he does have productive cough. Denies fevers, chest pain, abdominal pain, diarrhea. ED course: Patient was found to have a pneumothorax loculated and the chest tube was placed in the ED 8 [place] catheter. Minimal amount of fluid and air was pro duced. Patient has copious purulent sputum being produced. 12/01: Patient seen and evaluated bedside. Chest tube removed yesterday. Currently breathing on 2 L nasal cannula. Continue antibiotics, per ID. Discussed with RN and hospice social worker. Vitals/I&O Vitals/I&O: Vital Signs Date Time Temp Pulse Resp B/P (MAP) Pulse Ox O2 Delivery O2 Flow Rate FiO2 12/01/20 11:20 97.8 98 20 108/73 (85) 95 Nasal Cannula 2.0 97.8 I & O 11/30/20 11/30/20 12/01/20 15:00 23:00 07:00 Intake Total 250 ml 600 ml Output Total 0 ml 600 ml 600 ml Balance 0 ml -350 ml 0 ml Physical Exam Physical Exam: GENERAL: Alert, oriented x 3 male sitting upright in bed, in no acute distress. HEENT: Normocephalic, atraumatic, anicteric, edentulous. NECK: Supple, no JVD. LUNGS: Decreased breath sounds, bilateral crackles. Left chest tube present. ABDOMEN: Soft, bowel sounds present, nontender, nondistended. EXTREMITIES: No edema, no cyanosis. DERMATOLOGIC: Warm and dry. No generalized rash. NEUROLOGIC: Alert and oriented x 3, grossly nonfocal. PSYCHIATRIC: Cooperative, appropriate mood and affect. General: Alert, Oriented X3, Cooperative, No acute distress Lungs: Crackles Abdomen: Soft Extremities: No cyanosis, No edema Labs Labs: Laboratory Tests Test 12/01/20 08:20 White Blood Count 8.3 x10^3/uL (4.0-11.0) Red Blood Count 4.06 x10^6/uL (4.30-5.70) Hemoglobin 13.5 g/dL (13.0-17.5) Hematocrit 39.7 % (39.0-53.0) Mean Corpuscular Volume 98 fL (79-100) Mean Corpuscular Hemoglobin 33 pg (25-35) Mean Corpuscular Hemoglobin Concent 34 g/dL (31-37) Red Cell Distribution Width 13.2 % (11.5-14.5) Platelet Count 512 x10^3/uL (140-400) Neutrophils (%) (Auto) 72 % (31-73) Lymphocytes (%) (Auto) 15 % (24-48) Monocytes (%) (Auto) 12 % (0-9) Eosinophils (%) (Auto) 2 % (0-3) Basophils (%) (Auto) 0 % (0-3) Neutrophils # (Auto) 5.9 x10^3/uL (1.8-7.7) Lymphocytes # (Auto) 1.2 x10^3/uL (1.0-4.8) Monocytes # (Auto) 1.0 x10^3/uL (0.0-1.1) Eosinophils # (Auto) 0.1 x10^3/uL (0.0-0.7) Basophils # (Auto) 0.0 x10^3/uL (0.0-0.2) Sodium Level 134 mmol/L (136-145) Potassium Level 4.0 mmol/L (3.5-5.1) Chloride Level 97 mmol/L (98-107) Carbon Dioxide Level 29 mmol/L (21-32) Anion Gap 8 (6-14) Blood Urea Nitrogen 8 mg/dL (8-26) Creatinine 0.8 mg/dL (0.7-1.3) Estimated GFR (Cockcroft-Gault) 99.3 Glucose Level 141 mg/dL (70-99) Calcium Level 9.0 mg/dL (8.5-10.1) Assessment and Plan Assessmemt and Plan Problems Medical Problems: (1) Multifocal pneumonia Status: Acute (2) Person under investigation for COVID-19 Status: Acute (3) Sepsis Status: Acute (4) Spontaneous pneumothorax Status: Acute Comment Review of Relevant I have reviewed the following items angelique (where applicable) has been applied. Medications: Current Medications Medications (Trade) Dose Ordered Sig/Brianda Route PRN Reason Start Time Stop Time Status Last Admin Dose Admin Imipenem/ Cilastatin Sodium 500 mg/Sodium Chloride 100 ml @ 200 mls/hr Q6HRS IV 12/01/20 12:00 12/01/20 13:06 Justifications for Admission Other Justification PNEUMOTHORAX and ACUTE RESPIRATORY DISTRESS YAJAIRA MCPHERSON MD Dec 01, 2020 14:51
[2020-12-01 15:00] VITALS: BP 105/74
[2020-12-01 19:00] VITALS: BP 127/55
[2020-12-01 23:00] VITALS: BP 106/76
[2020-12-02 03:41] VITALS: BP 119/71
[2020-12-02] MEDS: NORMAL SALINE IV SCH (05:03)
[2020-12-02] MEDS: IMIPENEM IV SCH (05:03)
[2020-12-02] MEDS: CILASTATIN SODIUM IV SCH (05:03)
[2020-12-02 07:00] VITALS: BP 97/58
[2020-12-02] MEDS: DOXYCYCLINE HYCLATE 100 MG TABLET PO SCH (08:31)
[2020-12-02] MEDS: PANTOPRAZOLE 40 MG TABLET.DR. PO SCH (08:31)
[2020-12-02] MEDS: riFAMpin 300 MG CAPSULE. PO SCH (08:33)
[2020-12-02] MEDS: AZITHROMYCIN 250 MG TABLET. PO SCH (08:33)
[2020-12-02] MEDS: NICOTINE 21MG PATCH. TD SCH (08:34)
--- NOTE | 2020-12-02 08:47 | RAD ---
EXAM: Chest, single view. HISTORY: Pneumothorax. COMPARISON: 12/01/2020 FINDINGS: A frontal view of the chest obtained. There has been no change in a thick-walled cavitary l esion within the left upper lobe. There is a stable loculated left lateral pleural fluid collection o r pleural thickening. There is stable masslike consolidation within the bilateral upper lobes with ar chitectural distortion and pleural parenchymal scarring. There is emphysema. There is stable scattere d nodular opacity throughout the bilateral lower lobes. There are calcified granuloma is. The heart i s normal in size. IMPRESSION: 1. Stable thick-walled cavitary lesion within the left upper lobe with adjacent left lateral loculate d pleural fluid collection or pleural thickening. 2. Stable masslike consolidation within the bilateral upper lobes with architectural distortion and p leural parenchymal scarring. 3. Emphysema with scattered nodular opacities throughout the remainder of both lungs, characterized o n the prior CT. Electronically signed by: Danika Curtis MD (12/02/2020 8:44 AM) [id number]
--- NOTE | 2020-12-02 08:52 | PDOC ---
Infectious Disease Note Subjective Subjective pt is feeling better, no sob, occasional cough ROS ROS no n/v/d/fever Vital Sign Vital Signs Vital Signs Date Time Temp Pulse Resp B/P (MAP) Pulse Ox O2 Delivery O2 Flow Rate FiO2 12/02/20 07:30 Nasal Cannula 1.5 12/02/20 07:00 98.4 107 20 97/58 (71) 94 98.4 Physical Exam PHYSICAL EXAM GENERAL: Alert, oriented x 3 male sitting upright in bed, in no acute distress. HEENT: Normocephalic, atraumatic, anicteric, edentulous. NECK: Supple, no JVD. LUNGS: Decreased breath sounds, bilateral crackles. Left chest tube present. ABDOMEN: Soft, bowel sounds present, nontender, nondistended. EXTREMITIES: No edema, no cyanosis. DERMATOLOGIC: Warm and dry. No generalized rash. NEUROLOGIC: Alert and oriented x 3, grossly nonfocal. PSYCHIATRIC: Cooperative, appropriate mood and affect. Labs Micro chest fluid neg Objective Assessment 1. Fever, source Pulmonary. Pattern improving 2. Acute hypoxic respiratory failure. 3. Abnormal CT with worsening lung mass and air fluid level likely lung abscess. 4. Spontaneous pneumothorax left loculated fluid collection concern for empyema, status post chest tube placement 11/25/2020. Cultures not available 5. COVID-19 PUI. 6. Elevated D-dimer. 7. Severe protein-calorie malnutrition. 8. Tobacco dependence. 9. Alcohol dependence. 10. Weight loss. 11. History of pulmonary Mycobacterium avium complex, treated with more than 12 months of treatment with rifampin, azithromycin, and ethambutol. 13. History of multiple cultures in the past with Mycobacterium avium complex positive numerous times,Nocardia, Actinomyces, penicillium, Heena glabrata. Strep tococcus pneumoniae, susceptible to ceftriaxone and Levaquin Plan Plan of Care MAC is still positive in dec, despite treatment for 12 mths, likely resistant, will stop mac therapy and I have d/w lab to obtain susceptibility, then will decide now treat nocardia and actinomycin with Rocephine, bactrim and doxy f/u with me in 2 wks Influenza screen negative. COVID-19 negative Follow up labs and cultures. Continue supportive care. Discussed with MEGHA. OUSMANE BONE MD Dec 02, 2020 08:52
[2020-12-02] MEDS: CETIRIZINE HCL 10 MG TABLET. PO SCH (09:00)
[2020-12-02] MEDS ORDERED: SMZ/TMP 800/160MG TABLET. PO SCH (10:00)
[2020-12-02] MEDS ORDERED: cefTRIAXone IV Push 2 GM VIAL. IVP SCH (10:00)
--- NOTE | 2020-12-02 10:32 | PDOC ---
PULMONARY PROGRESS NOTES DATE: 12/02/20 TIME: 10:29 Subjective now on room air no increase in cough or SOA No other concerns from nursing Vitals Vital Signs Date Time Temp Pulse Resp B/P (MAP) Pulse Ox O2 Delivery O2 Flow Rate FiO2 12/02/20 07:30 Nasal Cannula 1.5 12/02/20 07:00 98.4 107 20 97/58 (71) 94 98.4 Comments Patient seen during pandemic, visual exam performed ROS: No Nausea, No Chest Pain, No Abdominal Pain, No Increase Cough General: Alert Lungs: Crackles Cardiovascular: S1, S2 Abdomen: Soft, Non-tender Neuro Exam: Alert, Oriented Extremities: No Edema Skin: Warm, Dry Labs Laboratory Tests Test 12/01/20 08:20 White Blood Count 8.3 x10^3/uL (4.0-11.0) Red Blood Count 4.06 x10^6/uL (4.30-5.70) Hemoglobin 13.5 g/dL (13.0-17.5) Hematocrit 39.7 % (39.0-53.0) Mean Corpuscular Volume 98 fL (79-100) Mean Corpuscular Hemoglobin 33 pg (25-35) Mean Corpuscular Hemoglobin Concent 34 g/dL (31-37) Red Cell Distribution Width 13.2 % (11.5-14.5) Platelet Count 512 x10^3/uL (140-400) Neutrophils (%) (Auto) 72 % (31-73) Lymphocytes (%) (Auto) 15 % (24-48) Monocytes (%) (Auto) 12 % (0-9) Eosinophils (%) (Auto) 2 % (0-3) Basophils (%) (Auto) 0 % (0-3) Neutrophils # (Auto) 5.9 x10^3/uL (1.8-7.7) Lymphocytes # (Auto) 1.2 x10^3/uL (1.0-4.8) Monocytes # (Auto) 1.0 x10^3/uL (0.0-1.1) Eosinophils # (Auto) 0.1 x10^3/uL (0.0-0.7) Basophils # (Auto) 0.0 x10^3/uL (0.0-0.2) Sodium Level 134 mmol/L (136-145) Potassium Level 4.0 mmol/L (3.5-5.1) Chloride Level 97 mmol/L (98-107) Carbon Dioxide Level 29 mmol/L (21-32) Anion Gap 8 (6-14) Blood Urea Nitrogen 8 mg/dL (8-26) Creatinine 0.8 mg/dL (0.7-1.3) Estimated GFR (Cockcroft-Gault) 99.3 Glucose Level 141 mg/dL (70-99) Calcium Level 9.0 mg/dL (8.5-10.1) Medications Active Scripts Medications Dose Route/Sig Max Daily Dose Days Date Category Albuterol Sulfate Neb Soln (Albuterol Sulfate) 1.25 Mg/3 Ml Vial.neb 1.25 Mg NEB PRN TID PRN 11/25/20 Reported Rifampin 300 Mg Capsule 2 Cap PO QTUTHSA 11/25/20 Reported Ethambutol Hcl 400 Mg Tablet 4 Tab PO QMWF 11/25/20 Reported Cetirizine Hcl 10 Mg Tablet 1 Tab PO DAILY 09/05/19 Reported Symbicort 160-4.5 Mcg Inhaler (Budesonide/Formoterol Fumarate) 10.2 Gm Hfa.aer.ad 2 Puff IH BID 06/20/19 Reported Azithromycin Tablet (Azithromycin) 500 Mg Tablet 1 Tab PO QTUTHSA 11/25/20 Reported Comments CTA chest IMPRESSION: 1. No pulmonary embolus identified within the main, lobar or segmental pulmonary arteries. 2. When compared to the prior exam in May there has been progressive consolidation in the right upper lobe, left upper lobe and left lower lobe. This may represent worsening infectious/inflammatory process. Underlying malignancy is difficult to exclude. 3. The cavitary lesion seen in the left lung have increased in size with a air- fluid level noted within the left upper lobe cavity. CXR 12/01/20 IMPRESSION: 1. Interval suspected left pleural drainage catheter removal. There is a thick- walled cavitary lesion within the left upper lobe and there is a suspected loculated left pleural fluid collection or pleural thickening which is unchanged radiographically. No pneumothorax is seen. 2. Bilateral upper lobe masslike consolidation with architectural distortion and pleural parenchymal scarring. The possibility of underlying neoplasm is not excluded. 3. Emphysema and scattered nodular opacities within the remainder of both lungs, characterized on the prior CT. Impression . IMPRESSION: 1. Acute hypoxemic respiratory failure. 2. Abnormal chest x-ray revealing increasing left upper lobe mass. 3. History of Mycobacterium avium complex, status post bronchoscopy on 11/07 with continue identification of MAC despite 12 months treatment with triple antibiotics. 4. Chronic obstructive pulmonary disease. 5. Tobacco dependent. 6. History of alcoholism. 7. 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 PLAN: Continue supplemental oxygen to keep oxygen saturations greater than 92%,now on room air Influenza negative and COVID-[address] of chest reviewed: Negative for pulmonary embolism, ongoing/worsening infectious/inflammatory process, cavitary lesion in the left lung increased in size with air-fluid level noted with the left upper lobe cavity Continue bronchodilators Continue empiric antibiotics per ID --- follow cultures----Gram positive rods, Gram positive cocci on resp. 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
[2020-12-02 10:54] VITALS: BP 123/73
[2020-12-02 11:32] LABS: PROTHROMBIN TIME PATIENT 14.3 SEC (11.7-14.0)
--- NOTE | 2020-12-02 13:44 | NUR ---
SS following up with discharge planning. SS reviewed pt chart and discussed with pt's RN. Pt is currently on room air. PT/OT recommended home independent. COVID19 negative. Pt needing IV Rocephin for 2 weeks. PICC line placed today. Pt requesting in home IV antibiotics. SS phoned and faxed script and referral [facility] ; fax [phone]. SS currently awaiting further communication from [facility]. SS will continue to follow for discharge planning.
[2020-12-02 14:56] VITALS: BP 117/78
--- NOTE | 2020-12-02 15:07 | PDOC ---
[facility] PROGRESS NOTE Date of Service DOS: DATE: 12/02/20 TIME: 15:04 Chief Complaint Chief Complaint Images: Images CXR Impression: 1. Small left lateral loculated pneumothorax. 2. Increased left upper lung masslike consolidation with additional consolidations bilaterally, may represent pneumonia although malignancy is possible. Recommend CT to further evaluate. Also recommend comparison with prior biopsy results. 3. Small left pleural effusion. CXR Impression: 1. Chest tube placement with near complete evaluation of pneumothorax. There still some apical pneumothorax identified. There is persistent biapical thickening of the lungs with a stable left upper lobe mass. Pending chest CTA Assessment/Plan Assessment/Plan Acute respiratory distress due to left pneumothorax and CAP Left loculated pneumothorax concern for empyema status post chest tube placement 11/25/2020 Investigation for COVID-19 infection Elevated D-dimer Severe protein malnutrition Tobacco and alcohol misuse History of Mycobacterium avium complex, status post bronchoscopy on 11/07 with continue identification of MAC despite 12 months treatment with triple antibiotics. Chronic obstructive pulmonary disease. Tobacco dependent. History of alcoholism. Spontaneous pneumothorax, ETIOLOGY possibly cancer. Continue empiric antibiotics per ID --- follow cultures----Gram positive rods, Gram positive cocci on resp. culture PT/OT Admit to medicine for further management Pulmonology consult for chest tube management Pending blood and sputum cultures Continue IV empiric antibiotics for pneumonia Lovenox for DVT prophylaxis Regular diet Full code Discussed with RN and SW Disposition inpatient management as above Surrogate decision maker is the start pt on Imipenem,doxycycline cover Nocardia and Actinomyces. Continue MAC treatment pending susceptibility results at this time. Discontinue vancomycin due to high trough and Zosyn.. Cont Imipenem/ doxycycline The cavitary lesion seen in the left lung have increased in size with a air- fluid level noted within the left upper lobe cavity. Examination: XR CHEST 1V History: Reason: pneumothorax / Spl. Instructions: / History: Comparison/Correlation: 11/29/2020 Findings: Portable frontal view of the chest was obtained. Heart size is normal. No pneumothorax. Interstitial infiltrates throughout the lung pittman noted. Tubing overlying left mid thoracic level again seen. Opacification at the left midlung region again seen. Interstitial infiltrates again seen throughout the lung pittman. Pulmonary vasculature is borderline. Left apical pleural thickening again noted. Impression: No significant change in pulmonary aeration. Infiltrates in other opacification stable. Electronically signed by: Aaron Fuchs MD (11/30/2020 9:07 AM) [id number] DICTATED and SIGNED BY: AARON FUCHS MD DATE: 11/30/20 [id number] 0 26 min pt exam, chart review, > 50% of time spent with exam, chart review, pt care coordination Justifications for Admission Justifications for Admission Other Justification History of Present Illness History of Present Illness Patient is a 60-year-old male with past medical history of COPD, MAC infection in the past, recent bronchoscopy with Dr. Dowd on 11/11/2020 who presents with shortness of breath for the past week after getting the bronchoscopy. Patient follows with Dr. Dowd for the past 4 years patient has been on antibiotics for a year for MAC. Patient states also he does have productive cough. Denies fevers, chest pain, abdominal pain, diarrhea. ED course: Patient was found to have a pneumothorax loculated and the chest tube was placed in the ED 8 [place] catheter. Minimal amount of fluid and air was pro duced. Patient has copious purulent sputum being produced. 12/01: Patient seen and evaluated bedside. Chest tube removed yesterday. Currently breathing on 2 L nasal cannula. Continue antibiotics, per ID. Discussed with RN and director of social services. 12/02: Patient seen and evaluated bedside. He received a PICC line today. He is to continue IV antibiotics outpatient, per ID. He will have MRI brain as outpatient evaluation as well. Greater than 30 minutes spent managing discharge this patient. Vitals/I&O Vitals/I&O: Vital Signs Date Time Temp Pulse Resp B/P (MAP) Pulse Ox O2 Delivery O2 Flow Rate FiO2 12/02/20 14:56 97.9 110 18 117/78 (91) 94 Room Air 97.9 12/02/20 07:30 1.5 I & O 0 12/01/20 12/01/20 12/02/20 15:00 23:00 07:00 Intake Total 720 ml 0 ml 200 ml Output Total 1100 ml 250 ml Balance -380 ml -250 ml 200 ml Physical Exam Physical Exam: GENERAL: Alert, oriented x 3 male sitting upright in bed, in no acute distress. HEENT: Normocephalic, atraumatic, anicteric, edentulous. NECK: Supple, no JVD. LUNGS: Decreased breath sounds, bilateral crackles. Left chest tube present. ABDOMEN: Soft, bowel sounds present, nontender, nondistended. EXTREMITIES: No edema, no cyanosis. DERMATOLOGIC: Warm and dry. No generalized rash. NEUROLOGIC: Alert and oriented x 3, grossly nonfocal. PSYCHIATRIC: Cooperative, appropriate mood and affect. General: Alert, Oriented X3, Cooperative, No acute distress Heart: Regular rate Lungs: Crackles Abdomen: Soft Extremities: No cyanosis, No edema Labs Labs: Laboratory Tests Test 12/02/20 10:28 Prothrombin Time 14.3 SEC (11.7-14.0) Prothromb Time International Ratio 1.2 (0.8-1.1) Assessment and Plan Assessmemt and Plan Problems Medical Problems: (1) Multifocal pneumonia Status: Acute (2) Person under investigation for COVID-19 Status: Acute (3) Sepsis Status: Acute (4) Spontaneous pneumothorax Status: Acute Comment Review of Relevant I have reviewed the following items angelique (where applicable) has been applied. Medications: Current Medications Medications (Trade) Dose Ordered Sig/Brianda Route PRN Reason Start Time Stop Time Status Last Admin Dose Admin Trimethoprim/ Sulfamethoxazole (Bactrim Ds) 1 tab BID PO 12/02/20 10:00 12/02/20 10:54 Ceftriaxone Sodium (Rocephin) 2 gm Q24H IVP 12/02/20 10:00 12/02/20 10:54 Justifications for Admission Other Justification PNEUMOTHORAX and ACUTE RESPIRATORY DISTRESS YAJAIRA MCPHERSON MD Dec 02, 2020 15:07
--- NOTE | 2020-12-02 15:14 | SNU/HH DC ---
DISCHARGE WITH HOME HEALTH DISCHARGE INFORMATION: Discharge Date: Dec 02, 2020 Final Diagnosis: Problems Medical Problems: (1) Multifocal pneumonia Status: Acute (2) Person under investigation for COVID-19 Status: Acute (3) Sepsis Status: Acute (4) Spontaneous pneumothorax Status: Acute Condition on Discharge: Stable CODE STATUS: Code Status: Full HOME HEALTH: Face to Face: I certify this patient is under my care and that I, or a nurse practitioner or physician's veterinary technician assistant working with me, had a face to face encounter that meets t he physician face to face encounter requirements with this patient on 12/02/2020. RN For Eval/Treatment: Yes Pt Meets Homebound Status: Poor coordination w/ amb., Extreme weakness w/ amb., Limited distance walking POST DISCHARGE ORDERS: Activity Instructions for Disc: No restrictions Weight Bearing Status after Di: Full weight bearing Bathing Instructions: No Tub Bath until see Wound/Incision Care: Ice to area for comfort, Change dressing, May get incision wet TREATMENT/EQUIPMENT ORDERS: Adaptive Equipment Issued: None CERTIFICATION STATEMENT: Certification Statement: Certification Statement: Based on the above finding, I certify that this patient is confined to the home and needs intermittent long-term care, physical therapy and/or speech therapy, or continues to need occupational therapy.~ This patient is under my care, and I have initiated the establishment of the plan of care.~ This patient will be followed by myself or a community physician who will periodically review the plan of care. Home Meds Reported Medications Azithromycin (AZITHROMYCIN TABLET) 500 Mg Tablet, 1 TAB PO QTUTHSA for 11/25/20 Albuterol Sulfate (ALBUTEROL SULFATE NEB SOLN) 1.25 Mg/3 Ml Vial.neb, 1.25 MG NEB PRN TID PRN for WHEEZING 11/25/20 Rifampin (RIFAMPIN) 300 Mg Capsule, 2 CAP PO QTUTHSA for 11/25/20 Ethambutol Hcl (ETHAMBUTOL HCL) 400 Mg Tablet, 4 TAB PO QMWF for 11/25/20 Cetirizine Hcl (CETIRIZINE HCL) 10 Mg Tablet, 1 TAB PO DAILY for ALLERGIES, #30 TAB 5 Refills 09/05/19 Budesonide/Formoterol Fumarate (SYMBICORT 160-4.5 MCG INHALER) 10.2 Gm Hf a.aer.ad, 2 PUFF IH BID for COPD, #10.6 GM 3 Refills 06/20/19 YAJAIRA MCPHERSON MD Dec 02, 2020 15:14
--- NOTE | 2020-12-02 15:25 | PDOC3 ---
Discharge Summary Visit Information Date of Admission: Nov 25, 2020 Date of Discharge: Dec 02, 2020 Final Diagnosis Problems Medical Problems: (1) Multifocal pneumonia Status: Acute (2) Person under investigation for COVID-19 Status: Acute (3) Sepsis Status: Acute (4) Spontaneous pneumothorax Status: Acute Brief Hospital Course Allergies Allergies Coded Allergies Type Severity Reaction Last Updated Verified I S O L A T I O N *CONTACT* Allergy Unknown 09/05/19 Yes No Known Medication Allergies Allergy Unknown 09/05/19 Yes Vital Signs Vital Signs Date Time Temp Pulse Resp B/P (MAP) Pulse Ox O2 Delivery O2 Flow Rate FiO2 12/02/20 14:56 97.9 110 18 117/78 (91) 94 Room Air 97.9 12/02/20 07:30 1.5 Lab Results Laboratory Tests Test 12/01/20 08:20 12/02/20 10:28 White Blood Count 8.3 x10^3/uL (4.0-11.0) Red Blood Count 4.06 x10^6/uL (4.30-5.70) Hemoglobin 13.5 g/dL (13.0-17.5) Hematocrit 39.7 % (39.0-53.0) Mean Corpuscular Volume 98 fL (79-100) Mean Corpuscular Hemoglobin 33 pg (25-35) Mean Corpuscular Hemoglobin Concent 34 g/dL (31-37) Red Cell Distribution Width 13.2 % (11.5-14.5) Platelet Count 512 x10^3/uL (140-400) Neutrophils (%) (Auto) 72 % (31-73) Lymphocytes (%) (Auto) 15 % (24-48) Monocytes (%) (Auto) 12 % (0-9) Eosinophils (%) (Auto) 2 % (0-3) Basophils (%) (Auto) 0 % (0-3) Neutrophils # (Auto) 5.9 x10^3/uL (1.8-7.7) Lymphocytes # (Auto) 1.2 x10^3/uL (1.0-4.8) Monocytes # (Auto) 1.0 x10^3/uL (0.0-1.1) Eosinophils # (Auto) 0.1 x10^3/uL (0.0-0.7) Basophils # (Auto) 0.0 x10^3/uL (0.0-0.2) Sodium Level 134 mmol/L (136-145) Potassium Level 4.0 mmol/L (3.5-5.1) Chloride Level 97 mmol/L (98-107) Carbon Dioxide Level 29 mmol/L (21-32) Anion Gap 8 (6-14) Blood Urea Nitrogen 8 mg/dL (8-26) Creatinine 0.8 mg/dL (0.7-1.3) Estimated GFR (Cockcroft-Gault) 99.3 Glucose Level 141 mg/dL (70-99) Calcium Level 9.0 mg/dL (8.5-10.1) Prothrombin Time 14.3 SEC (11.7-14.0) Prothromb Time International Ratio 1.2 (0.8-1.1) Laboratory Tests Test 12/02/20 10:28 Prothrombin Time 14.3 SEC (11.7-14.0) Prothromb Time International Ratio 1.2 (0.8-1.1) Brief Hospital Course Mr. Krause is a 60 old male who presented with acute hypoxic respiratory failure, abnormal CT with worsening lung mass and air fluid level likely lung abscess, left loculated fluid collection concern for empyema, spontaneous pneumothorax. He is status post chest tube placement 11/25/2020. Consultations were placed to pulmonology and ID. He has a history of pulmonary Mycobacterium avium complex, treated with more than 12 months of treatment with rifampin, azithromycin, and ethambutol. He has a history of multiple cultures in the past with Mycobacterium avium complex positive numerous times, Nocardia, Actinomyces, penicillium, Heena glabrata. Streptococcus pneumoniae, susceptible to ceftriaxone and Levaquin. He was treated with IV antibiotics, per ID. Chest tube is managed per pulmonology. After his chest tube was removed, he received PICC line to continue IV Rocephin outpatient. He will continue work-up with outpatient MRI. Discharge Information Condition at Discharge: Improved Disposition/Orders: D/C to Home w/ HH Scheduled Azithromycin (Azithromycin Tablet) 500 Mg Tablet, 1 TAB PO QTUTHSA for , (Reported) Entered as Reported by: LIANNA REEVES RN on 11/25/202010 Last Action: Converted on 11/25/202237 by LIANNA REEVES RN Budesonide/Formoterol Fumarate (Symbicort 160-4.5 Mcg Inhaler) 10.2 Gm Hfa.aer.ad, 2 PUFF IH BID for COPD, #10.6 Ref 3 (Reported) Entered as Reported by: KHURRAM UNDERWOOD on 06/20/19 0832 Last Action: Reviewed on 11/25/202203 by LIANNA REEVES RN Cetirizine Hcl (Cetirizine Hcl) 10 Mg Tablet, 1 TAB PO DAILY for ALLERGIES, #30 Ref 5 (Reported) Entered as Reported by: Yaima Mora on 09/05/19 1235 Last Action: Continued on 11/25/202237 by LIANNA REEVES RN Ethambutol Hcl (Ethambutol Hcl) 400 Mg Tablet, 4 TAB PO QMWF for , (Reported) Entered as Reported by: LIANNA REEVES RN on 11/25/202010 Last Action: Continued on 11/25/202237 by LIANNA REEVES RN Rifampin (Rifampin) 300 Mg Capsule, 2 CAP PO QTUTHSA for , (Reported) Entered as Reported by: LIANNA REEVES RN on 11/25/202010 Last Action: Continued on 11/25/202237 by LIANNA REEVES RN Scheduled PRN Albuterol Sulfate (Albuterol Sulfate Neb Soln) 1.25 Mg/3 Ml Vial.neb, 1.25 MG NEB PRN TID PRN for WHEEZING, (Reported) Entered as Reported by: LIANNA REEVES RN on 11/25/202010 Last Action: Reviewed on 11/25/202203 by LIANNA REEVES RN Justicifation of Admission Dx: Justifications for Admission: Justification of Admission Dx: Yes CHF: Cardiac Arrhythmias Respiratory Failure: Mechanical Ventilation YAJAIRA MCPHERSON MD Dec 02, 2020 15:25
--- NOTE | 2020-12-02 16:48 | RAD ---
Exam: Fluoroscopic and ultrasound guided right percutaneous inserted central venous catheter placement 12/02/2020 2:44 PM .Indication: iv antibiotics Technique: Informed oral and written consent were obtained. The right upper extremity was prepped and draped using sterile barrier technique. All elements of maximal sterile barrier technique including the use of a cap, mask, sterile gown, sterile gloves, large sterile sheet, appropriate hand hygiene, and 2% chlorhexidine for cutaneous antisepsis (or acceptable alternative antiseptic per current guidelines) were followed for this procedure.. Real-time ultrasound demonstrated a patent right basilic vein which was prepped and draped in usual sterile fashion. 1% lidocaine used for local anesthesia. Using real-time ultrasound guidance the access needle percutaneously punctured the selected right basilic vein. Reference ultrasound images were saved to the medical record. A guidewire was advanced through the needle to the cavoatrial junction, and a peel-away sheath placed. The catheter was cut to length and inserted through the peel-away sheath such that its tip is at the cavoatrial junction. The wire and sheath were removed, and the catheter secured in place, and a sterile dressing was applied. Catheter was found to flush and aspirate normally. No immediate complications are identified. FLUORO TIME: 0.1 DOSE AREA PRODUCT: 1 Gycm2 Impression: Ultrasound and fluoroscopically guided placement of a right upper extremity PICC line.
--- NOTE | 2020-12-02 16:50 | NUR ---
SS following up with discharge planning. [facility] contacted SS and reported that co-pay for IV antibiotics is $69/day until deductible is met. SS met with pt and pt's spouse and discussed and pt agreeable to co-pays. [facility] notified and coming to do teach with pt. Discharge orders and referral phoned and faxed to [facility]. Pt's RN notified.
[2020-12-02] MEDS ORDERED: DOXY100C2 PO (17:11)
[2020-12-02] MEDS ORDERED: SULF1TAB23 PO (17:11)
--- NOTE | 2020-12-02 18:00 | NUR ---
PATIENT IS DISCHARGED HOME. DISCHARGE INSTRUCTIONS GIVEN. RIGHT PICC LINE INTACT UPON DISCHARGE FOR IV ANTIBIOTIC USE. MONITOR REMOVED. ESCORTED PATIENT OFF UNIT PER WHEELCHAIR INTO A PRIVATE VEHICLE.
== END 2020-12-02 18:00 | disposition home health service (06) | DRG 871 ==
LOC: ER 14:27 → 2 SOUTH 16:24
PROVIDERS: ADMIT Internal Medicine; ATTEND Internal Medicine
PROC: 0W9B30Z Drainage of Left Pleural Cavity with Drainage Device, Percutaneous Approach (ICD-10-PCS; principal; 2020-11-25)
PROC: 02HV33Z Insertion of Infusion Device into Superior Vena Cava, Percutaneous Approach (ICD-10-PCS; 2020-12-02)
PROC: B5181ZA Fluoroscopy of Superior Vena Cava using Low Osmolar Contrast, Guidance (ICD-10-PCS; 2020-12-02)
PROC: B548ZZA Ultrasonography of Superior Vena Cava, Guidance (ICD-10-PCS; 2020-12-02)
DX: A41.9 Sepsis, unspecified organism (principal); J96.01 Acute respiratory failure with hypoxia; E43 Unspecified severe protein-calorie malnutrition; J85.1 Abscess of lung with pneumonia; J44.0 Chronic obstructive pulmonary disease with (acute) lower respiratory infection; J93.83 Other pneumothorax; F10.20 Alcohol dependence, uncomplicated; F17.200 Nicotine dependence, unspecified, uncomplicated; Z79.51 Long term (current) use of inhaled steroids; Z88.8 Allergy status to other drugs, medicaments and biological substances; Z91.041 Radiographic dye allergy status; Z68.24 Body mass index [BMI] 24.0-24.9, adult; Z20.822 Contact with and (suspected) exposure to COVID-19
CPT/HCPCS: 36415; 36573; 36600; 71045; 71275; 77001; 80048; 80053; 80202; 82550; 82805; 83605; 83735; 83880; 84100; 84484; 85025; 85379; 85610; 87015; 87040; 87070; 87071; 87075; 87102; 87116; 87205; 87804; 93005; 94640; 96365; 96366; 96375; 99285; 99406; C1751; C1892; J0456; J0696; J0743; J1100; J1885; J2270; J2405; J2543; J3010; J3370; J3490; J7030; J7040; J7050; Q9967; U0003; G0378

== ENCOUNTER → 2021-01-30 | Outpatient (CLI) | payer OTHER ==
[~2021-01-30] MED LIST changes: +ALBU1.25 NEB; +AZIT500T4 PO; +DOXY100C2 PO; -MORPHINE SULFATE 4 MG/ML VIAL. IV PRN; +SULF1TAB23 PO; +TADA5TAB12 PO; +[UNRECOGNIZED DRUG - CODE] PO
== END ==
LOC: LAB 10:17
PROVIDERS: ATTEND Internal Medicine Pulmonary Disease
DX: Z01.812 Encounter for preprocedural laboratory examination (principal); Z20.822 Contact with and (suspected) exposure to COVID-19
CPT/HCPCS: U0003

== ENCOUNTER → 2021-02-03 | Day surgery (SDC) | payer OTHER ==
[~2021-02-03] MED LIST changes: +ALBUTEROL SULFATE 2.5 MG/3 ML NEBU. NEB PRN; +EPINEPHrine 1 MG/ML VIAL INJ PRN; +IV RINGERS,LACTATED 1000ML 1,000 ML IV ONE; +LIDOCAINE 1% Multi-Dose 20 ML VIAL. INJ PRN; +LIDOCAINE 2% PF 5 ML VIAL. ONE; +LIDOCAINE 2% VISCOUS 100 ML BOTTLE. MM PRN; +LIDOCAINE 4% TOPICAL 50 ML SOLUTION. MM PRN; +PROPOFOL 10 MG/ML (20ML) VIAL. IV ONE
[2021-02-03 09:34] LABS: BASO % 1 % (0-3); EOS # 0.1 x10^3/uL (0.0-0.7); EOS % 2 % (0-3); HEMATOCRIT 40.9 % (39.0-53.0); HEMOGLOBIN 14.2 g/dL (13.0-17.5); LYMPH # 1.6 x10^3/uL (1.0-4.8); LYMPH % 23 % (24-48); MEAN CORPUSCULAR HEMOGLOBIN 33 pg (25-35); MEAN CORPUSCULAR HGB CONC 35 g/dL (31-37); MEAN CORPUSCULAR VOLUME 95 fL (79-100); MONO # 0.9 x10^3/uL (0.0-1.1); MONO % 13 % (0-9); NEUT # 4.5 x10^3/uL (1.8-7.7); NEUT % 62 % (31-73); PLATELET COUNT 275 x10^3/uL (140-400); RED BLOOD COUNT 4.28 x10^6/uL (4.30-5.70); RED CELL DISTRIBUTION WIDTH 13.4 % (11.5-14.5); WHITE BLOOD COUNT 7.3 x10^3/uL (4.0-11.0)
[2021-02-03 11:00] LABS: POTASSIUM 4.2 mmol/L (3.5-5.1)
[2021-02-03 11:06] LABS: ALBUMIN 3.2 g/dL (3.4-5.0); ALBUMIN/GLOBULIN RATIO 0.7 (1.0-1.7); TOTAL BILIRUBIN 0.5 mg/dL (0.2-1.0); TOTAL PROTEIN 7.6 g/dL (6.4-8.2)
[2021-02-03 11:09] LABS: CALCIUM 8.7 mg/dL (8.5-10.1); CREATININE 0.9 mg/dL (0.7-1.3); GFR 86.7
[2021-02-03 11:19] VITALS: BP 103/60
--- NOTE | 2021-02-03 11:25 | PDOC ---
PULMONARY PROGRESS NOTES DATE: 02/03/21 TIME: 11:25 Vitals Vital Signs Date Time Temp Pulse Resp B/P (MAP) Pulse Ox O2 Delivery O2 Flow Rate FiO2 02/03/21 11:04 97.5 107 22 129/64 100 Simple Mask 10 97.5 General: Alert Lungs: Crackles Cardiovascular: S1, S2 Abdomen: Soft, Non-tender Extremities: No Edema Labs Laboratory Tests Test 02/03/21 09:20 White Blood Count 7.3 x10^3/uL (4.0-11.0) Red Blood Count 4.28 x10^6/uL (4.30-5.70) Hemoglobin 14.2 g/dL (13.0-17.5) Hematocrit 40.9 % (39.0-53.0) Mean Corpuscular Volume 95 fL (79-100) Mean Corpuscular Hemoglobin 33 pg (25-35) Mean Corpuscular Hemoglobin Concent 35 g/dL (31-37) Red Cell Distribution Width 13.4 % (11.5-14.5) Platelet Count 275 x10^3/uL (140-400) Neutrophils (%) (Auto) 62 % (31-73) Lymphocytes (%) (Auto) 23 % (24-48) Monocytes (%) (Auto) 13 % (0-9) Eosinophils (%) (Auto) 2 % (0-3) Basophils (%) (Auto) 1 % (0-3) Neutrophils # (Auto) 4.5 x10^3/uL (1.8-7.7) Lymphocytes # (Auto) 1.6 x10^3/uL (1.0-4.8) Monocytes # (Auto) 0.9 x10^3/uL (0.0-1.1) Eosinophils # (Auto) 0.1 x10^3/uL (0.0-0.7) Basophils # (Auto) 0.0 x10^3/uL (0.0-0.2) Sodium Level 139 mmol/L (136-145) Potassium Level 4.2 mmol/L (3.5-5.1) Chloride Level 104 mmol/L (98-107) Carbon Dioxide Level 29 mmol/L (21-32) Anion Gap 6 (6-14) Blood Urea Nitrogen 9 mg/dL (8-26) Creatinine 0.9 mg/dL (0.7-1.3) Estimated GFR (Cockcroft-Gault) 86.7 BUN/Creatinine Ratio 10 (6-20) Glucose Level 89 mg/dL (70-99) Calcium Level 8.7 mg/dL (8.5-10.1) Total Bilirubin 0.5 mg/dL (0.2-1.0) Aspartate Amino Transf (AST/SGOT) 25 U/L (15-37) Alanine Aminotransferase (ALT/SGPT) 28 U/L (16-63) Alkaline Phosphatase 61 U/L (46-116) Total Protein 7.6 g/dL (6.4-8.2) Albumin 3.2 g/dL (3.4-5.0) Albumin/Globulin Ratio 0.7 (1.0-1.7) Laboratory Tests Test 02/03/21 09:20 White Blood Count 7.3 x10^3/uL (4.0-11.0) Red Blood Count 4.28 x10^6/uL (4.30-5.70) Hemoglobin 14.2 g/dL (13.0-17.5) Hematocrit 40.9 % (39.0-53.0) Mean Corpuscular Volume 95 fL (79-100) Mean Corpuscular Hemoglobin 33 pg (25-35) Mean Corpuscular Hemoglobin Concent 35 g/dL (31-37) Red Cell Distribution Width 13.4 % (11.5-14.5) Platelet Count 275 x10^3/uL (140-400) Neutrophils (%) (Auto) 62 % (31-73) Lymphocytes (%) (Auto) 23 % (24-48) Monocytes (%) (Auto) 13 % (0-9) Eosinophils (%) (Auto) 2 % (0-3) Basophils (%) (Auto) 1 % (0-3) Neutrophils # (Auto) 4.5 x10^3/uL (1.8-7.7) Lymphocytes # (Auto) 1.6 x10^3/uL (1.0-4.8) Monocytes # (Auto) 0.9 x10^3/uL (0.0-1.1) Eosinophils # (Auto) 0.1 x10^3/uL (0.0-0.7) Basophils # (Auto) 0.0 x10^3/uL (0.0-0.2) Sodium Level 139 mmol/L (136-145) Potassium Level 4.2 mmol/L (3.5-5.1) Chloride Level 104 mmol/L (98-107) Carbon Dioxide Level 29 mmol/L (21-32) Anion Gap 6 (6-14) Blood Urea Nitrogen 9 mg/dL (8-26) Creatinine 0.9 mg/dL (0.7-1.3) Estimated GFR (Cockcroft-Gault) 86.7 BUN/Creatinine Ratio 10 (6-20) Glucose Level 89 mg/dL (70-99) Calcium Level 8.7 mg/dL (8.5-10.1) Total Bilirubin 0.5 mg/dL (0.2-1.0) Aspartate Amino Transf (AST/SGOT) 25 U/L (15-37) Alanine Aminotransferase (ALT/SGPT) 28 U/L (16-63) Alkaline Phosphatase 61 U/L (46-116) Total Protein 7.6 g/dL (6.4-8.2) Albumin 3.2 g/dL (3.4-5.0) Albumin/Globulin Ratio 0.7 (1.0-1.7) Medications Active Scripts Medications Dose Route/Sig Max Daily Dose Days Date Category Bactrim 400-80 Mg Tablet (Sulfamethoxazole/Trimethoprim) 1 Each Tablet 2 Tab PO BID 14 12/02/20 Reported Albuterol Sulfate Neb Soln (Albuterol Sulfate) 1.25 Mg/3 Ml Vial.neb 1.25 Mg NEB PRN TID PRN 11/25/20 Reported Ethambutol Hcl 400 Mg Tablet 4 Tab PO QMWF 11/25/20 Reported Cetirizine Hcl 10 Mg Tablet 1 Tab PO DAILY 09/05/19 Reported Symbicort 160-4.5 Mcg Inhaler (Budesonide/Formoterol Fumarate) 10.2 Gm Hfa.aer.ad 2 Puff IH BID 06/20/19 Reported Doxycycline Hyclate 100 Mg Capsule 1 Cap PO BID 12/02/20 Reported Impression . Full report dictated HAILEE SANTANA MD Feb 03, 2021 11:25
--- NOTE | 2021-02-03 11:49 | OP ---
DATE OF SURGERY: 02/03/2021 ATTENDING PHYSICIAN: Hailee Santana MD PROCEDURE: Bronchoscopy, bronchoalveolar lavage. 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 Repeat CT chest revealed no significant improvement. In fact, the right upper lobe consolidation has worsened. He is undergoing a repeat bronchoscopy for bronchoalveolar lavage to rule out possibility of a new infection ongoing Mycobacterium avium complex. Risks, benefits, and alternatives reviewed with the patient and his . They consented. DESCRIPTION OF PROCEDURE: Timeout was performed prior to sedation. Vital signs and O2 saturation were maintained, within normal limits throughout the procedure. The patient was sedated with the aid of anesthesia. The bronchoscope was passed through the right naris. The vocal cords were identified moving bilaterally without any dysfunction. The vocal cords were anesthetized with 5 mL of 4% lidocaine. The bronchoscope was passed through the vocal cords into the proximal trachea, which was normal. The right and left segments and subsegments were visualized. There was minimal amount of secretions. There was no purulent material. The scope was wedged into the right upper lobe and a bronchoalveolar lavage was performed. The scope was then wedged into the right and left lower lobe and lavage was likewise performed. The return was clear. There was no evidence of bleeding. There were no purulent secretions. FINDINGS: 1. Normal vocal cords. 2. No purulent secretions in the segments and subsegments. 3. BAL performed of the right and the left side. PLAN: 1. Continue current antibiotics for Nocardia. 2. Follow up in the office in 4-6 weeks. 3. Follow up on BAL results. 4. Repeat CBC and chemistry profile. 5. The patient should avoid alcohol intake. HAILEE SANTANA MD DR: WHITLEY/nas JOB#: [id number] / [id number] OUSMANE Garland MD
--- NOTE | 2021-02-05 14:08 | PATHOLOGY ---
Note [facility] Accession Number: [id number] TESTS RESULT FLAG UNITS REF RANGE LAB Clinician Provided Cytology Information No. of containers..01 Other (Miscellaneous) Source: BAL R/L DIAGNOSIS: BAL R/L NEGATIVE FOR MALIGNANT CELLS. FOCALLY REACTIVE BRONCHIAL EPITHELIAL CELLS PRESENT. FEW PULMONARY MACROPHAGES PRESENT. SILVER METHENAMINE STAINED SMEARS ARE NEGATIVE FOR PNEUMOCYSTIS JIROVECI. FUNGAL ORGANISMS ARE PRESENT. Signed out by: 02 José Wilde MD, Pathologist NPI- [id number] Performed by: Ceci Gan, Infrastructure Director ([facility]) Gross description: 01 15ML, COLORLESS, 1TP1CB /LCS 02/04/2021 [facility] FLAG LEGEND: L-Low Normal,H-High Normal,LL-Alert Low,HH-Alert High <-Panic Low,>-Panic High,A-Abnormal,AA-Critical Abnormal Performed at: [address] [place] [address] Prasanth Trejo MD, 02 [facility] [address] [place] [address] José Wilde MD, Specimen Comment: A courtesy copy of this report has been sent to [phone] Specimen Comment: Report sent to Performed at: [address] [place] [address] [address], [place], [place] [id number] MD Prasanth Trejo MD Phone: [phone]
== END | disposition home or self-care (01) ==
LOC: SURG 08:54
PROVIDERS: ATTEND Internal Medicine Pulmonary Disease
DX: R91.8 Other nonspecific abnormal finding of lung field (principal); J43.9 Emphysema, unspecified; K21.9 Gastro-esophageal reflux disease without esophagitis; M19.90 Unspecified osteoarthritis, unspecified site; F41.9 Anxiety disorder, unspecified; Z85.828 Personal history of other malignant neoplasm of skin; Z87.891 Personal history of nicotine dependence; Z79.899 Other long term (current) drug therapy; Z98.890 Other specified postprocedural states
CPT/HCPCS: 31624; 36415; 80053; 85025; 87070; 87102; 87116; 87205; 87252; 87801; 88112; 88312; 94640; J0171; J2704; J3490; J7613; 31622